=== PATIENT | female | born 1985 | race Caucasian/White ===

== ENCOUNTER 2016-12-11 17:44 | Emergency (ER) | payer OTHER, MEDICAID ==
[~2016-12-11] VITALS: Ht 154.9 cm; Wt 78.0 kg
[~2016-12-11 17:44] MED LIST: ACYCLOVIR 400M400 MG PO; BACTRIM DS 8001 TAB PO; BENZONATATE100 M1 PO; CETIRIZINE HCL10 MG PO; CIPRO 500MG TA500 MG PO; DOXYCYCLINE HY100 M4 PO; HYDROXYZINE PAM50 MG PO; KEFLEX 500MG.500 MG PO; KEFLEX500 M1 PO; NOMEDS XX; ORTHO TRI-CYCLE1 TAB PO; PHENERGAN 25MG.25 M1 PO; PREDNISONE 20MG20 MG PO; PREDNISONE 5MG.5 MG PO; TAMIFLU 75MG CA75 MG PO; TESSALON PERLE100 MG PO; TORADOL10 MG PO; VOLTAREN75 MG PO; ZITHROMAX Z-PA250 M1 PO; ZOFRAN ODT4 MG PO
[2016-12-11] MEDS ORDERED: WELLBUTRIN 150150 MG PO (18:00)
[2016-12-11] MEDS ORDERED: LATUDA40 MG PO (18:01)
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
[2016-12-11] MEDS ORDERED: IMITREX 25MG TA25 MG PO (21:12)
[2016-12-11] MEDS ORDERED: PHENERGAN25 M3 PO (21:12)
[2016-12-11 21:21] VITALS: BP 156/94
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
== END 2016-12-11 21:22 | disposition home or self-care (01) ==
LOC: UTC 17:44 → ER 18:03 → UTC 18:03 → ER 21:22
DX: G43.001 Migraine without aura, not intractable, with status migrainosus (principal); Z72.0 Tobacco use

== ENCOUNTER 2017-03-29 07:56 | Emergency (ER) | payer MEDICAID ==
[~2017-03-29] VITALS: Ht 154.9 cm; Wt 79.4 kg
[~2017-03-29 07:56] MED LIST changes: +IMITREX 25MG TA25 MG PO; +LATUDA40 MG PO; +PHENERGAN25 M3 PO; +WELLBUTRIN 150150 MG PO
[2017-03-29] MEDS ORDERED: VISTARIL25 MG PO (08:05)
--- NOTE | 2017-03-29 08:26 | Emergency Room Report ---
History of Present Illness Time Seen by MD Odom Presenting Problem in Triage Pt arrived:Walked Presenting Problem:PT STATES SEVERE MIGRAINE WITH NAUSEA THAT BEGAN MONDAY NIGHT. DENIES TREATMENT PRIOR TO ARRIVAL. STATES HISTORY OF MIGRAINE. 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 N Clinical Suspician of Infection? N Mental Status: 1 - Regular (Normal Baseline) Sepsis Risk:Low Sepsis Risk Have you (or family members/close friends) recently traveled outside the [place]? N If Yes, where/when: Have you had exposure to infectious disease within the past month? TB? Other? Specify: Comment The patient has a history of migraines and complains of a typical migraine. She says that she has a headache that is all over her whole head and seems to originate in the back part of her head. She has photophobia, blurry vision, and nausea. Symptoms have been present since Monday. I've seen the patient for migraines a couple of times in November. The last time I saw her she was treated with subcutaneous Imitrex and then prescribed Imitrex and Phenergan. She says that the Imitrex and Phenergan helped. She says her family physician, Dr. Saab, is currently trying to get her on Relpax, but is having trouble with her insurance getting approval. ALLERGIES Coded Allergies: No Known Allergies (12/09/16) Home Medications Reported Medications ACYCLOVIR SODIUM (Acyclovir 400MG) 200 MG PO BID #60 Hydroxyzine Pamoate (Vistaril) 25 MG PO PRN PRN ANXIETY History Medical History General CAD? No Angina: No [place]: No Hypertension? No Hyperlipidemia? No CHF? No DVT? No PE? No COPD? No Asthma? No Anemia? No GERD? No Gastric ulcers? No GI Bleed? No Hernia? No Thyroid Problems? No Hypothyroidism? No CVA? No Seizures? No Diabetes? No Renal Insuffiency? No End Stage Renal Disease? No UTI? No Stones? No BPH? No GB Disease: No Nephritic Syndrome? No Asplenia? No Hepatitis? No Sickle Cell Disease? No Arthritis? No Migraines? Yes Cataracts? No Glaucoma? No MRSA? No HIV? No TB? No Anxiety? No Depression? Yes Cancer? No More? 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 Family History Family Hx Diabetes No CAD No Hypertension Yes Hyperlipidemia Yes Cancer No TB No Social History Smoking Hx Smoker: Current Every Day Smoker Tobacco: Yes Type Cigarettes Packs/day 1 1/2 - 2 Packs Alcohol Alcohol: No Review of Systems All Other Systems Reviewed and Negative Eyes see HPI Gastrointestinal nausea Psychiatric/Neurological headache Physical Exam Vital Signs Vital Signs Date Time Temp Pulse Resp B/P Pulse O2 O2 Flow FiO2 Ox Delivery Rate 03/29 800 98.8 70 20 130/76 100 General Appearance normal appearance, WD/WN Eye Exam - bilateral eye normal exam, bilateral eye PERRL, bilateral eye EOMI Comment Fundi normal, no papilledema or hemorrhages. Ear, Nose, Throat hearing grossly normal, normal ENT inspection Neck normal inspection, non-tender, supple, full range of motion Respiratory Status Yes: trachea midline, chest symmetrical, non tender chest. No: respiratory distress. Lung Sounds bilateral: normal breath sounds, lungs clear. 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 No Results/Orders Current Medication Orders Sig/Brendan Start time Last Medication Dose Route Stop Time Status Admin Sumatriptan Succinate 6 MG ONCE ONE 03/29 845 DC 03/29 SC 03/29 Sumatriptan Succinate 0 .STK-MED ONE 03/29 838 DC .ROUTE Progress - 9:45 AM: Per nurse, patient is better and ready to be discharged. Departure Departure Disposition DC Home or Self Care(routine) Clinical Impression Primary Impression: Migraine Qualifiers: Migraine type: without aura Status migrainosus presence: with status migrainosus Intractability: not intractable Qualified Code: G43.001 - Migraine without aura, not intractable, with status migrainosus Condition STABLE Referrals [facility] (Family) Patient Instructions DI for Migraine Additional Instructions Additional instructions for HEADACHE: See your physician as soon as possible for further evaluation. Return immediately if worsening headache, vomiting, problems with vision or speech, fever, numbness or weakness of the extremities, neck pain or stiffness. Prescriptions Current Visit Scripts Sumatriptan Succinate (Imitrex 25MG Tablet) 25 MG PO ONCE #10 TAB take one tablet at onset of migraine. If no relief repeat dose once in 2 hours. PROMETHAZINE HCL (Phenergan 25MG Tab (Geq)) 25 MG PO Q6HP PRN N/V #14 TAB ED Critical Care Critical Care No at 0947
--- NOTE | 2017-03-29 08:26 | Emergency Room Report ---
History of Present Illness Time Seen by MD dOom Presenting Problem in Triage Pt arrived:Walked Presenting Problem:PT STATES SEVERE MIGRAINE WITH NAUSEA THAT BEGAN MONDAY NIGHT. DENIES TREATMENT PRIOR TO ARRIVAL. STATES HISTORY OF MIGRAINE. 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 N Clinical Suspician of Infection? N Mental Status: 1 - Regular (Normal Baseline) Sepsis Risk:Low Sepsis Risk Have you (or family members/close friends) recently traveled outside the [place]? N If Yes, where/when: Have you had exposure to infectious disease within the past month? TB? Other? Specify: Comment The patient has a history of migraines and complains of a typical migraine. She says that she has a headache that is all over her whole head and seems to originate in the back part of her head. She has photophobia, blurry vision, and nausea. Symptoms have been present since Monday. I've seen the patient for migraines a couple of times in November. The last time I saw her she was treated with subcutaneous Imitrex and then prescribed Imitrex and Phenergan. She says that the Imitrex and Phenergan helped. She says her family physician, Dr. Saab, is currently trying to get her on Relpax, but is having trouble with her insurance getting approval. ALLERGIES Coded Allergies: No Known Allergies (12/09/16) Home Medications Reported Medications ACYCLOVIR SODIUM (Acyclovir 400MG) 200 MG PO BID #60 Hydroxyzine Pamoate (Vistaril) 25 MG PO PRN PRN ANXIETY History Medical History General CAD? No Angina: No [place]: No Hypertension? No Hyperlipidemia? No CHF? No DVT? No PE? No COPD? No Asthma? No Anemia? No GERD? No Gastric ulcers? No GI Bleed? No Hernia? No Thyroid Problems? No Hypothyroidism? No CVA? No Seizures? No Diabetes? No Renal Insuffiency? No End Stage Renal Disease? No UTI? No Stones? No BPH? No GB Disease: No Nephritic Syndrome? No Asplenia? No Hepatitis? No Sickle Cell Disease? No Arthritis? No Migraines? Yes Cataracts? No Glaucoma? No MRSA? No HIV? No TB? No Anxiety? No Depression? Yes Cancer? No More? 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 Family History Family Hx Diabetes No CAD No Hypertension Yes Hyperlipidemia Yes Cancer No TB No Social History Smoking Hx Smoker: Current Every Day Smoker Tobacco: Yes Type Cigarettes Packs/day 1 1/2 - 2 Packs Alcohol Alcohol: No Review of Systems All Other Systems Reviewed and Negative Eyes see HPI Gastrointestinal nausea Psychiatric/Neurological headache Physical Exam Vital Signs Vital Signs Date Time Temp Pulse Resp B/P Pulse O2 O2 Flow FiO2 Ox Delivery Rate 03/29 800 98.8 70 20 130/76 100 General Appearance normal appearance, WD/WN Eye Exam - bilateral eye normal exam, bilateral eye PERRL, bilateral eye EOMI Comment Fundi normal, no papilledema or hemorrhages. Ear, Nose, Throat hearing grossly normal, normal ENT inspection Neck normal inspection, non-tender, supple, full range of motion Respiratory Status Yes: trachea midline, chest symmetrical, non tender chest. No: respiratory distress. Lung Sounds bilateral: normal breath sounds, lungs clear. 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 No Results/Orders Current Medication Orders Sig/Brendan Start time Last Medication Dose Route Stop Time Status Admin Sumatriptan Succinate 6 MG ONCE ONE 03/29 845 DC 03/29 SC 03/29 Sumatriptan Succinate 0 .STK-MED ONE 03/29 838 DC .ROUTE Progress - 9:45 AM: Per nurse, patient is better and ready to be discharged. Departure Departure Disposition DC Home or Self Care(routine) Clinical Impression Primary Impression: Migraine Qualifiers: Migraine type: without aura Status migrainosus presence: with status migrainosus Intractability: not intractable Qualified Code: G43.001 - Migraine without aura, not intractable, with status migrainosus Condition STABLE Referrals [facility] (Family) Patient Instructions DI for Migraine Additional Instructions Additional instructions for HEADACHE: See your physician as soon as possible for further evaluation. Return immediately if worsening headache, vomiting, problems with vision or speech, fever, numbness or weakness of the extremities, neck pain or stiffness. Prescriptions Current Visit Scripts Sumatriptan Succinate (Imitrex 25MG Tablet) 25 MG PO ONCE #10 TAB take one tablet at onset of migraine. If no relief repeat dose once in 2 hours. PROMETHAZINE HCL (Phenergan 25MG Tab (Geq)) 25 MG PO Q6HP PRN N/V #14 TAB ED Critical Care Critical Care No at 0947
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
--- OUTSIDE RECORDS SUMMARY | 2017-03-29 08:30 | External Medical Summary Rpt ---
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 Name Role Phone A Mia FERRER MD [...] Unavailable Unavailable PHILLIP MARESEY Unavailable Unavailable BARBIE [facility] Unavailable Unavailable [facility] TOSHA BEAN MD, Unavailable Unavailable TOSHA BEAN MD HARPEL ZULEMA, HARPEL Unavailable Unavailable ZULEMA HARPEL ZULEMA, HARPEL Unavailable Unavailable ZULEMA [facility] Un[facility] Unavailable [facility], [facility], Unavailable Unavailable [facility] ROD AUD, ROD AUD Unavailable Unavailable [facility], [facility] KILPELA JEA, KILPELA Unavailable Unavailable BHAVESH Schwab MD, Unavailable Unavailable Cherie Strange MD, Unavailable Unavailable Lizet SAMUEL, Unavailable Unavailable CAMRYN SAMUEL, Unavailable Unavailable CAMRYN SAMUEL URBANO, URBANO Unavailable Unavailable URBANO TRUDY, URBANO TRUDY Unavailable Unavailable URBANO TRUDY, URBANO TRUDY Unavailable Unavailable [facility], [facility], [facility] Unavailable Unavailable [id number] [address] [id number], [facility] [id number] [address] [id number] ARCHIE MARQUES, ARCHIE Unavailable Unavailable JERALD Parker Unavailable Unavailable Lex REDDY MD, III, MD, WRIGHT Unavailable Unavailable Purpose Continuity of Care Document - 07-13-2013 through 2016 Problems Code Diagnosis DOS Provider Status [id number] MIGRAINE 02-13-2017 A Mia FERRER W/O AURA PSC NOT INTRACT W/STAT MIGRAINOSUS R300 DYSURIA 02-13-2017 A Mia FERRER MD PSC [id number] CONCUSSION 02-13-2017 A Mia FERRER WITHOUT LOC PSC INITIAL ENCOUNTER N390 URINARY 09-14-2016 A Mia FERRER TRACT PSC INFECTION SITE NOT SPECIFIED [id number] SPRAIN UNS 06-01-2016 [facility] LIGAMENT LEFT ANKLE INITIAL ENCOUNTER [id number] MIGRAINE 02-21-2016 [facility] UNS NOT PHYSICIANS INTRACT W/O GROUP STATUS MIGRAINOSUS J40 BRONCHITIS 02-21-2016 [facility] NOT PHYSICIANS SPECIFIED GROUP ACUTE OR CHRONIC J329 CHRONIC 02-05-2016 [facility] SINUSITIS PHYSICIANS UNSPECIFIED GROUP J0190 ACUTE 01-07-2016 [facility] SINUSITIS PHYSICIANS UNSPECIFIED GROUP R05 COUGH 01-07-2016 [facility] B86 SCABIES 11-17-2015 [facility] R51 HEADACHE 10-29-2015 [facility] J0191 ACUTE 09-24-2015 [facility] RECURRENT PHYSICIANS SINUSITIS GROUP UNSPECIFIED J209 ACUTE 09-24-2015 [facility] BRONCHITIS PHYSICIANS UNSPECIFIED GROUP J42 UNSPECIFIED 09-04-2015 [facility] R5383 OTHER 09-04-2015 [facility] 3671 MYOPIA 04-28-2015 [facility] 7840 HEADACHE 04-27-2015 [facility] 490 BRONCHITIS 03-10-2015 [facility] NOT PHYSICIANS, SPECIFIED PLLC ACUTE OR CHRONIC 88963 CONTACT 03-10-2015 [facility] DERMATITIS& PHYSICIANS, OTHER PLLC ECZEMA DUE TO SUNBURN 4779 ALLERGIC 01-15-2015 [facility] RHINITIS CAUSE UNSPECIFIED 1121 CANDIDIASIS 01-09-2015 TOSHA Melendez OF [facility] 7231 CERVICALGIA 01-09-2015 [facility] 7242 LUMBAGO 01-09-2015 [facility] 7245 UNSPECIFIED 01-09-2015 [facility] 52771 OTHER 01-09-2015 [facility] 2724 OTHER AND 12-12-2014 [facility] HYPERLIPIDE LYNETTE 4011 ESSENTIAL 12-12-2014 [facility], BENIGN INC 27932 INSOMNIA 12-12-2014 [facility] 21018 OBESITY, 12-02-2014 A Mia FERRER UNSPECIFIED [facility] 7831 ABNORMAL 12-02-2014 A Mia FERRER WEIGHT GAIN [facility] V8536 BODY MASS 12-02-2014 A Mia FERRER INDEX [facility] 36.0-36.9 ADULT 3530 BRACHIAL 11-21-2014 [facility] LESIONS [facility] 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 7246 DISORDERS 11-21-2014 [facility] [place] 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 [facility] 7391 NONALLOPATH 11-21-2014 [facility] IC LESION FAMILY OF CERVICAL CHIROPRACT REGION NEC 7392 NONALLOPATH 11-21-2014 [facility] [place]ESION FAMILY OF THORACIC CHIROPRACT REGION NEC 7393 NONALLOPATH 11-21-2014 [facility] [place] IC [facility]ESION FAMILY OF LUMBAR CHIROPRACT REGION NEC 7394 NONALLOPATH 11-21-2014 [facility] [place] IC LESION FAMILY OF SACRAL CHIROPRACT REGION NEC 4660 ACUTE 11-06-2014 A Mia FERRER BRONCHITIS [facility] V1582 PERS HX 11-06-2014 A Mia FERRER TOBACCO USE [facility] PRESENTING [facility] 6116 GALACTORRHE 09-30-2014 TOSHA BEAN MD ASSOCIATED WITH CHILDBIRTH V259 UNSPECIFIED 09-30-2014 TOSHA BEAN MD CONTRACEPTI VE MANAGEMENT V7231 ROUTINE 09-30-2014 TOSHA Melendez GYNECOLOGIC GEN[facility] MOSQUERA AL EXAMINATION V154 PERS HX 06-25-2014 [facility] TRAUMA PRS [facility] 0549 HERPES 06-24-2014 A Mia FERRER SIMPLEX PSC WITHOUT MENTION OF COMPLICATIO N 6262 EXCESSIVE 06-24-2014 A Mia FERRER OR ARPIT MOSQUERA PSC MENSTRUATIO N V2502 GENERAL 02-20-2014 HARPEL ZULEMA CNSL INITIATION OTH CONTRACEPT MEASURES V2509 OTH GENERAL 02-20-2014 [facility] ZULEMA CNSL&ADVICE CONTRACEPT MANAGEMENT V2542 SURVEILLANC 02-11-2014 HARPEL ZULEMA E PREV PRSC INTRAUTERN CNTRACPT DEVC 77901 UNSPECIFIED 01-30-2014 URBANO TRUDY ACUTE CONJUNCTIVI TIS 4659 ACUTE URIS 01-30-2014 UBRANO TRUDY OF UNSPECIFIED SITE 48341 FEVER 11-22-2013 FIELD AMB UNSPECIFIED 305.00 305.00 10-09-2013 [facility] ALCOHOL [facility] ABUSE-[facility] C 915.0 915.0 10-09-2013 [facility] ABRASION [facility] V720 EXAMINATION 10-08-2013 [facility] OF EYES GRE AND VISION 466.0 466.0 ACUTE 08-15-2013 Bridget[facility] BRONCHITIS [facility] 493.90 493.90 08-15-2013 Bridget[facility] ASTHMA, [facility] 883.0 883.0 OPEN 07-13-2013 Bridgett WOUND OF [facility] E849.0 E849.0 07-13-2013 [facility] ACCIDENT IN [facility] E920.3 E920.3 07-13-2013 [facility] KNIFE/SWORD [facility] G43.909 MIGRAINE, UNSP, NOT INTRACTABLE , WITHOUT [...] 10 #3 MG 93 8 TA B RI 00 05 06 60 30 00 RI [...] 05 06 60 30 00 RI Ac RI 50 -1 -0 .0 00 TE ti [...] 04 05 60 30 00 RI Ac RI 78 -1 -1 .0 00 TE ti [...] 04 05 60 30 00 RI Ac RI 46 -0 -0 .0 00 TE ti [...] #3 MG 93 8 TA BL ET RI 00 03 04 10 2 00 RI Ac OM 59 -2 -1 .0 00 TE ti ET 15 0- 4- 00 01 ve BANIS 30 20 20 17 AI ZI 70 [...] 10 #3 MG 93 8 TA B RI 00 03 04 60 30 00 RI Ac OP 37 -2 -1 .0 00 TE ti RA 80 1- 4- 00 01 ve NO 18 20 20 17 AI LO 40 17 17 63 D L 1 66 PH 40 AR MA MG CY TA #3 BL 93 ET 8 BU 60 03 04 60 30 00 RI Ac RI 50 -1 -0 .0 00 TE ti [...] 02 03 60 30 00 RI Ac RI 46 -2 -2 .0 00 TE ti [...] 01 02 30 30 00 RI Ac RI 37 -2 -1 .0 00 TE ti OP 00 0- 7- 00 01 ve IO 10 20 20 14 AI N 10 17 17 78 D HC 3 57 PH L AR XL MA CY 15 0 #3 MG 93 8 TA BL ET NA 68 01 02 60 30 00 RI Ac RI 46 -2 -1 .0 00 TE ti [...] 12 01 60 30 00 RI Ac RI 46 -0 -0 .0 00 TE ti [...] 12 01 30 30 00 RI Ac RI 37 -0 -0 .0 00 TE ti OP 00 9- 9- 00 01 ve IO 10 20 20 14 AI N 10 16 17 78 D HC 3 57 PH L AR XL MA CY 15 0 #3 MG 93 8 TA BL ET NA 68 08 10 5 60 30 RI 11 BR Ac RI 46 -2 -2 0. TE 46 OD ti OX 20 5- 6- 00 00 SK ve EN 19 20 20 0 AI 8 Y 00 16 16 D KE 50 1 PH NN 0 AR ET MG MA H CY M TA BL 03 ET 93 8 # 03 93 BU 10 09 10 5 30 30 RI 11 BR Ac RI 37 -0 -2 0. TE 47 OD [...] M. complet OR 013 RHOADES ed 16:30 LINEN ROOM HOUSEPERSON ETHNICI WHITE, complet TY 013 NON-HIS ed 16:30 PANIC KIT complet EXPIRAT 013 014 ed ION 16:30 DATE SYMPTOM NO complet S ed 16:30 REASON REVISIT complet FOR 013 /ANNUAL ed REQUEST 16:30 FAMILY RENE Hall VISIT SPECIME FEMALE complet N 013 ENDOCER ed SOURCE 16:30 VICAL PREGNAN NO complet T 013 ed 16:30 CHART M. complet NUMBER 013 RHOADES ed 16:30 LINEN ROOM HOUSEPERSON Chlamyd Pending complet ia ed trachom 16:30 atis rRNA [Presen ce] in Unspeci fied specime n by Probe & target amplifi cation method Neisser Pending complet ed gonorrh 16:30 oeae rRNA [Presen ce] in Unspeci fied specime n by Probe & target amplifi cation method Procedures Procedure DOS Code Location Performer Comment URINLS 07470 A C URBANO DIP 7 CARISSA MOSQUERA STICK/TAB PSC LET REAGNT NON-AUTO MICRSCPY URINLS 46368 A C FERRER DIP 6 CARISSA MOSQUERA STICK/TAB PSC LET REAGNT NON-AUTO MICRSCPY INJECTION J1885 [facility] LEIA 6 PHYSICIAN BONDS KETOROLAC S GROUP TROMETHAM INE PER 15 MG THERAPEUT 86834 [facility] LEIA IC 6 PHYSICIAN BONDS PROPHYLAC S GROUP TIC/DX INJECTION SUBQ/IM THERAPEUT 20099 [facility] JOSE C IC 6 PHYSICIAN BARBIE PROPHYLAC S GROUP TIC/DX INJECTION SUBQ/IM INJECTION J1885 [facility] JOSE C 6 PHYSICIAN BARBIE KETOROLAC S GROUP TROMETHAM INE PER 15 MG INJECTION J1040 [facility] JOSE C 6 PHYSICIAN BARBIE METHYLPRE S GROUP DNISOLONE ACETATE 80 MG INJECTION J1040 [facility] TER 6 PHYSICIAN METHYLPRE S GROUP DNISOLONE ACETATE 80 MG THERAPEUT 61055 [facility] R[facility] TER IC 6 PHYSICIAN PROPHYLAC S GROUP TIC/DX INJECTION SUBQ/IM INJECTION J1885 [facility] 6 PHYSICIAN KETOROLAC S GROUP TROMETHAM INE PER 15 MG THERAPEUT 43310 [facility] RIVAS TER IC 6 PHYSICIAN PROPHYLAC S GROUP TIC/DX INJECTION SUBQ/IM THERAPEUT 57320 [facility] IC 5 PHYSICIAN PHYSICIAN PROPHYLAC S GROUP S GROUP TIC/DX INJECTION SUBQ/IM INJECTION J1040 [facility] TER 5 PHYSICIAN METHYLPRE S GROUP DNISOLONE ACETATE 80 MG IRON 50391 [facility] BINDING [facility] CAPACITY INC INC BLOOD 68278 [facility] COUNT [facility] COMPLETE INC INC AUTO&AUTO DIFRNTL WBC COLLECTIO 32595 [facility] N VENOUS 5 [facility] [place] [address] [facility] FOLIC [facility] [place] [address] [facility] IRON [facility] INC INC CYANOCOBA 26965 [facility] JADON 5 [facility] VITAMIN INC INC B-[address] [facility] 5 GRE GRE XM&EVAL COMPRHNSV ESTAB PT 1/> RADEX 43766 [facility] 5 MEDICAL YULISA LUMBOSACR IMAGING AL 2/3 ASS VIEWS RADEX 72949 [facility] 5 MEDICAL YULISA CERVICAL IMAGING 2 OR 3 ASS VIEWS SMR PRIM 18143 TOSHA BEAN SRC WET 5 GENEVA CINTRON NFCT AGT COLLECTIO 44911 [facility] N VENOUS 5 [facility] BLOOD INC INC VENIPUNCT URE BLOOD 29089 [facility] COUNT 5 [facility] COMPLETE INC INC AUTO&AUTO DIFRNTL WBC BLOOD 10168 [facility] COUNT 5 [facility] COMPLETE INC INC AUTO&AUTO DIFRNTL WBC HEMOGLOBI 14071 [facility] N 5 [facility] GLYCOSYLA INC INC MAXX A1C COLLECTIO 44145 [facility] N VENOUS 5 [facility] BLOOD INC INC VENIPUNCT URE LIPID 84355 [facility] PANEL 5 [facility] INC INC HEPATIC 28340 [facility] FUNCTION 5 [facility] PANEL INC INC BASIC 80594 [facility] METABOLIC 5 [facility] [place] [address] [facility] THYROID 5 [facility] STIMULATI INC INC NG HORMONE TSH APPL 01580 MAURIZIO ARCHIE MODALITY 5 N FAMILY JERALD 1/> AREAS CHIROPRAC ELEC T STIMJ UNATTENDE D APPL 41099 MAURIZIO ARCHIE MODALITY 5 N FAMILY JERALD 1/> AREAS CHIROPRAC TRACTION T MECHANICA L THERAPEUT 12006 MAURIZIO ARCHIE IC PX 1/> 5 N FAMILY JERALD AREAS CHIROPRAC EACH 15 T MIN EXERCISES CHIROPRAC 64397 MAURIZIO ALMANZA TIC 5 N FAMILY JERALD MANIPULAT CHIROPRAC ROOP[place] TX T SPINAL 3-4 REGIONS CHIROPRAC 40623 MAURIZIO ALMANZA TIC 5 N FAMILY JERALD MANIPULAT CHIROPRAC ROOPA TX T SPINAL 3-4 REGIONS THERAPEUT 75761 MAURIZIO ALMANZA IC PX 1/> 5 N FAMILY JERALD AREAS CHIROPRAC EACH 15 T MIN EXERCISES APPL 38285 YANEW ARCHIE MODALITY 5 N FAMILY JERALD 1/> AREAS CHIROPRAC ELEC T STIMJ UNATTENDE D APPL 32541 VINODTOW ARCHIE MODALITY 5 N FAMILY JERALD 1/> AREAS CHIROPRAC TRACTION T MECHANICA L RADEX 01014 VINODTOW ARCHIE SPINE 5 N FAMILY JERALD CERVICAL CHIROPRAC 2 OR 3 T VIEWS RADEX 72563 YANEW ARCHIE SPINE 5 N FAMILY JERALD LUMBOSACR CHIROPRAC AL 2/3 T VIEWS IADNA 03487 TOSHA BEAN NEISSERIA 5 GENEVA POOLE GONORRHOE AE DIRECT PROBE TQ CULTURE 15016 TOSHA BEAN CHLAMYDIA 5 GENEVA MOSQUERA ZULEMA ANY SOURCE URINE 24116 TOSHA GIVENS R 5 GENEVA BEAN MD TEST VISUAL COLOR CMPRSN METHS URINLS 42336 TOSHA R HARPEL DIP 5 GENEVA MOSQUERA ZULEMA STICK/TAB LET REAGNT NON-AUTO MICRSCPY URINE 65884 A Mia CLEMENT TRUDY 4 CARISSA MOSQUERA TEST PSC VISUAL COLOR CMPRSN METHS URINE 77779 [facility] HARPEL 4 ZULEMA ZULEMA TEST VISUAL COLOR CMPRSN METHS ETONOGEST J7307 [facility] HARPEL REL 4 ZULEMA ZULEMA CNTRACPT IMPL SYS INCL IMPL & SPL INSJ 84183 [facility] HARPEL NON-BIODE 4 ZULEMA ZULEMA GRADABLE DRUG DELIVERY IMPLANT REMOVAL 69428 [facility] HARPEL INTRAUTER 4 ZULEMA ZULEMA INE DEVICE IUD IAADIADOO 09448 FIELD AMB FIELD AMB [address] [facility] 4 GRE GRE XM&EVAL COMPRHNSV ESTAB PT 1/> DETERMINA 09007 [facility] TION 4 GRE GRE REFRACTIV E STATE Encounters Encounter Start End Date Code Location Performer Type Date OFFICE 52315 A Mia CLEMENT OUTPATIEN 7 7 CARISSA MOSQUERA T VISIT PSC 25 MINUTES OFFICE 90307 Karma FERRER OUTPATIEN 6 6 CARISSA MOSQUERA T VISIT PSC 15 MINUTES OFFICE 99218 [facility] OUTPATIEN 6 6 [place] T VISIT 15 MINUTES OFFICE 44019 [facility] OUTPATIEN 6 6 [place] T VISIT 15 MINUTES OFFICE 82058 [facility] LEIA OUTPATIEN 6 6 PHYSICIAN BONDS T VISIT S GROUP 15 MINUTES OFFICE 67932 [facility] JOSE C OUTPATIEN 6 6 PHYSICIAN BARBIE T VISIT S GROUP 15 MINUTES OFFICE 05276 [facility] EV[address] TER OUTPATIEN 6 6 PHYSICIAN T VISIT S GROUP 15 MINUTES OFFICE 73253 [facility] OUTPATIEN 6 6 [place] T VISIT 15 MINUTES OFFICE 29758 [facility] [address] TER OUTPATIEN 6 6 PHYSICIAN T VISIT S GROUP 15 MINUTES [facility] OUTPATIEN INC T OFFICE [address] [facility] [address] OUTPATIEN 5 5 [facility] T VISIT HOSPITAL 15 MINUTES OFFICE 39062 [facility] OUTPATIEN 5 5 [facility] T VISIT HOSPITAL 15 MINUTES OFFICE 38736 [facility] OUTPATIEN 5 5 [place] T VISIT 15 MINUTES EMERGENCY 66042 [facility] STRANGE 5 5 PHYSICIAN BARBIE DEPARTMEN S, PLLC T VISIT HIGH/URGE NT SEVERITY OFFICE 75080 [facility] OUTPATIEN 5 5 [place] T VISIT 15 MINUTES [facility] OUTPATIEN INC T OFFICE 90864 TOSHA BEAN OUTPATIEN 5 5 GENEVA POOLE T VISIT 15 MINUTES [facility] - [facility] 5 [facility] OUTPATIEN INC T OFFICE 65835 A Mia YATES OUTPATIEN 5 5 CARISSA MOSQUERA T VISIT PSC 15 MINUTES OFFICE 30021 MAURIZIO ALMANZA OUTPATIEN 5 5 N FAMILY JERALD T NEW 20 CHIROPRAC MINUTES T OFFICE 53310 A Mia YATES OUTPATIEN 5 5 CARISSA MOSQUERA T VISIT PSC 15 MINUTES OFFICE 49995 A Mia LEWIS OUTPATIEN 5 5 CARISSA OSPINA T VISIT PSC 15 MINUTES [facility] 47193 TOSHA BEAN PREVENTIV 5 5 GENEVA POOLE E MED EST PATIENT 18-39 YRS OFFICE 92125 A Mia YATES OUTPATIEN 4 4 CARISSA MOSQUERA T VISIT PSC 15 MINUTES OFFICE 66174 A Mia YATES OUTPATIEN 4 4 CARISSA MOSQUERA T VISIT PSC 15 MINUTES OFFICE 63713 [facility] HARPEL OUTPATIEN 4 4 ZULEMA ZULEMA T VISIT 10 MINUTES OFFICE 32797 [facility] HARPEL OUTPATIEN 4 4 ZULEMA ZULEMA T VISIT 25 MINUTES OFFICE 61327 URBANOBECK YATES URBANO TRUDY OUTPATIEN 4 4 T VISIT 15 MINUTES OFFICE 59987 FIELD AMB FIELD AMB OUTPATIEN 4 4 T VISIT 15 MINUTES OFFICE 24793 URBANOBECK KOENIGES TRUDY OUTPATIEN 4 4 T VISIT 10 MINUTES Emergency PREETI Schwab MD (ER) 4 17:31 4 17:47 [facility] Emergency PREETI Strange MD (ER) 3 03:28 3 05:12 [facility] Emergency PREETI Parker (ER) 3 15:59 3 18:37 [facility] [place]
--- OUTSIDE RECORDS SUMMARY | 2017-03-29 08:33 | External Medical Summary Rpt ---
Author Author , Organization [employer] Address Unknown Phone Unavailable Care Team Providers Care Proposal Director Name Role Phone A Mia FERRER MD PSC, A Unavailable Unavailable Mia FERRER MD PSC EVELYN TER, EVELYN TER Unavailable Unavailable [facility] Unavailable Unavailable [facility] ROBERTSON Unavailable Unavailable [place] LEIA BONDS, Unavailable Unavailable LEIA BONDS JOSE C BARBIE, JOSE C Unavailable Unavailable [facility], Unavailable [facility]available [facility], Unavailable [facility]available [facility] AM[facility], FIELD AMB Unavailable Unavailable FI[facility] AM[facility], FIELD AM[facility] Unavailable Unavailable ALIS BARBIE, ALIS Unavailable Unavailable BARBI[facility] Unavailable Unavailable [facility] TOSHA BEAN MD, Unavailable Unavailable TOSHA BEAN MD HARPEL ZULEMA, HARPEL Unavailable Unavailable ZULEMA HARPEL ZULEMA, HARPEL Unavailable Unavailable ZULEMA [facility] Un[facility] Unavailable [facility], [facility], Unavailable Unavailable [facility] ROD AUD, ROD AUD Unavailable Unavailable [facility] Unavailable Unavailable [facility], [facility] KILPELA JEA, KILPELA Unavailable Unavailable JEA CAMRYN GRE, Unavailable Unavailable CAMRYN GRE CAMRYN GRE, Unavailable Unavailable CAMRYN GRE URBANO, URBANO Unavailable Unavailable URBANO TRUDY, URBANO TRUDY Unavailable Unavailable URBANO TRUDY, URBANO TRUDY Unavailable Unavailable [facility], [facility], [facility] Unavailable Unavailable [id number] [address] [id number], [facility] [id number] # [id number] ARCHIE WILL Unavailable Unavailable CARISSA PAZ Unavailable Unavailable Purpose Continuity of Care Document - 10-08-2013 through 2016 Problems Code Diagnosis DOS Provider Status [id number] MIGRAINE 02-13-2017 Karma FERRER W/O AURKarma MOSQUERA PSC NOT INTRACT W/STAT MIGRAINOSUS R300 DYSURIA 02-13-2017 Karma FERRER MD PSC [id number] CONCUSSION 02-13-2017 Karma FERRER WITHOUT LOC PSC INITIAL ENCOUNTER N390 URINARY 09-14-2016 Karma LIANG MD [facility] INFECTION SITE NOT SPECIFIED [id number] SPRAIN UNS 06-01-2016 [facility] FIGUEROA LIGAMENT LEFT ANKLE INITIAL ENCOUNTER [id number] MIGRAINE 02-21-2016 [facility] UNS NOT PHYSICIANS INTRACT W/O GROUP STATUS MIGRAINOSUS J40 BRONCHITIS 02-21-2016 [facility] NOT PHYSICIANS SPECIFIED GROUP ACUTE OR CHRONIC J329 CHRONIC 02-05-2016 [facility] SINUSITIS PHYSICIANS UNSPECIFIED GROUP J0190 ACUTE 01-07-2016 [facility] SINUSITIS PHYSICIANS UNSPECIFIED GROUP R05 COUGH 01-07-2016 [facility] B86 SCABIES 11-17-2015 [facility] R51 HEADACHE 10-29-2015 [facility] J0191 ACUTE 09-24-2015 [facility] RECURRENT PHYSICIANS SINUSITIS GROUP UNSPECIFIED J209 ACUTE 09-24-2015 [facility] BRONCHITIS PHYSICIANS UNSPECIFIED GROUP J42 UNSPECIFIED 09-04-2015 [facility] R5383 OTHER 09-04-2015 [facility] 3671 MYOPIA 04-28-2015 CAMRYN SAMUEL 7840 HEADACHE 04-27-2015 [facility] FIGUER[facility] 490 BRONCHITIS 03-10-2015 [facility] ACUTE OR CHRONIC 40379 CONTACT 03-10-2015 [facility] OTHER [facility] ECZEMA DUE TO SUNBURN 4779 ALLERGIC 01-15-2015 [facility] RHINITIS CAUSE UNSPECIFIED 1121 CANDIDIASIS 01-09-2015 TOSHA Melendez OF [facility] 7231 CERVICALGIA 01-09-2015 [facility] 7242 LUMBAGO 01-09-2015 [facility] 7245 UNSPECIFIED 01-09-2015 [facility] 31677 OTHER 01-09-2015 [facility] FAT[facility] 2724 OTHER AND 12-12-2014 [facility] HYPERLIPIDE LYNETTE 4011 ESSENTIAL 12-12-2014 [facility], BENIGN INC 17336 INSOMNIA 12-12-2014 [facility] 55880 OBESITY, 12-02-2014 A Mia SANABRIAIFIED PSC 7831 ABNORMAL 12-02-2014 A Mia FERRER WEIGHT GAIN PSC V8536 BODY MASS 12-02-2014 A Mia FERRER INDEX PSC 36.0-36.9 ADULT 3530 BRACHIAL 11-21-2014 [facility] 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 7246 DISORDERS 11-21-2014 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 7391 NONALLOPATH 11-21-2014 [facility] IC LESION FAMILY OF CERVICAL CHIROPRACT REGION NEC 7392 NONALLOPATH 11-21-2014 [facility]ES[facility] FAMILY OF THORACIC CHIROPRACT REGION NEC 7393 NONALLOPATH 11-21-2014 [facility] [facility]ILY OF LUMBAR CHIROPRACT REGION NEC 7394 NONALLOPATH 11-21-2014 [facility]ES[facility] FAMILY OF SACRAL CHIROPRACT REGION NEC 4660 ACUTE 11-06-2014 A Mia FERRER BRONCHITIS PSC V1582 PERS HX 11-06-2014 A Mia FERRER TOBACCO USE PSC [facility] 6116 GALACTORRHE 09-30-2014 TOSHA [...] CNSL&ADVICE CONTRACEPT MANAGEMENT V2542 SURVEILLANC 02-11-2014 HARPEL ZULMEA E PREV PRSC INTRAUTERN CNTRACPT DEVC 32144 UNSPECIFIED 01-30-2014 URBANO TRUDY ACUTE CONJUNCTIVI TIS 4659 ACUTE URIS 01-30-2014 URBANO TRUDY OF UNSPECIFIED SITE 80958 FEVER 11-22-2013 FIELD AMB UNSPECIFIED V720 EXAMINATION 10-08-2013 [facility] OF [facility] Medications Na ND Rx Da Fi Fi Am Da Di Ph RX Ph St me C No te ll ll ou ys ag ar # ys at rm s nt no ma ic us Or Da si cy ia de te s n re d AM 00 05 06 30 30 00 RI Ac IT 78 -2 -1 .0 00 TE ti RI 11 2- 6- 00 01 ve PT 48 20 20 18 AI YL 60 17 17 48 D IN 1 51 PH E AR HC MA L CY 10 #3 MG 93 8 TA B NC 00 05 06 60 30 00 RI [...] #3 CR 93 8 10 0 MG VR 61 05 06 30 30 00 RI Ac AY 87 -1 -1 .0 00 TE ti LA 40 8- 6- 00 01 ve R 11 20 20 18 AI 1. 53 17 17 40 D 5 0 50 PH MG AR MA CA CY PS UL #3 E 93 8 HY 00 05 06 [address] 18 -1 -0 .0 00 TE ti OX 50 5- 9- 00 01 ve YZ 61 20 20 18 AI IN 50 17 17 40 D E 1 48 PH PA AR M MA 50 CY MG #3 93 CA 8 P BU 60 05 06 60 30 00 RI Ac NC 50 -1 -0 .0 00 TE ti [...] CY MG #3 93 CA 8 P LA 65 04 05 46 30 00 RI Ac MO 86 -1 -1 .0 00 TE ti TR 20 7- 2- 00 01 ve IG 22 20 20 18 AI IN 70 17 17 02 D E 1 33 PH 25 AR MA MG CY TA #3 BL 93 ET 8 BU 00 04 05 60 30 00 RI Ac NC 78 -1 -1 .0 00 TE ti OP 11 7- 2- 00 01 ve IO 06 20 20 18 AI N 40 17 17 02 D HC 1 34 PH L AR 10 MA 0 CY MG #3 TA 93 BL 8 ET IB 67 04 05 30 7 00 RI Ac UP 87 -0 -0 .0 00 TE ti RO 70 8- 5- 00 01 ve FE 32 20 20 17 AI N 10 17 17 90 D 80 5 37 PH 0 AR MG MA CY TA BL #3 ET 93 8 NA 68 04 05 60 30 00 RI Ac NC 46 -0 -0 .0 00 TE ti OX 20 7- 5- 00 01 ve EN 19 20 20 14 AI 00 17 17 60 D 50 1 08 PH 0 AR MG MA CY TA BL #3 ET 93 8 HEAD 55 03 04 9. 5 00 RI Ac MA 11 -2 -1 00 00 TE ti TR 10 0- 4- 0 01 ve IP 29 20 20 17 AI TA 10 17 17 59 D N 9 23 PH HEAD AR CC MA CY 25 #3 MG 93 8 TA BL ET NC 00 03 04 10 2 00 RI Ac OM 59 -2 -1 .0 00 TE ti ET 15 0- 4- 00 01 ve BAINS 30 20 20 17 AI ZI 70 17 17 59 D NE 1 24 PH AR 25 MA CY MG #3 TA 93 BL 8 ET HY 00 03 04 [address] 18 -1 -1 .0 00 TE ti OX 50 5- 4- 00 01 ve YZ 61 20 20 17 AI IN 50 17 17 55 D E 1 97 PH PA AR M MA 50 CY MG #3 93 CA 8 P AM 00 03 04 30 30 00 RI Ac IT 78 -2 -1 .0 00 TE ti RI 11 1- 4- 00 01 ve PT 48 20 20 17 AI YL 60 17 17 63 D IN 1 64 PH E AR HC MA L CY 10 #3 MG 93 8 TA B NC 00 03 04 60 30 00 RI Ac OP 37 -2 -1 .0 00 TE ti RA 80 1- 4- 00 01 ve NO 18 20 20 17 AI LO 40 17 17 63 D L 1 66 PH 40 AR MA MG CY TA #3 BL 93 ET 8 KE 00 03 04 12 3 [...] CA #3 PS 93 UL 8 E BU 60 03 04 60 30 00 RI Ac NC 50 -1 -0 .0 00 TE ti OP 50 5- 7- 00 01 ve IO 15 20 20 17 AI N 80 17 17 53 D HC 1 95 PH L AR 75 MA CY MG #3 TA 93 BL 8 ET NA 68 02 03 60 30 00 RI Ac NC 46 -2 -2 .0 00 TE ti OX 20 3- 4- 00 01 ve EN 19 20 20 14 AI 00 17 17 60 D 50 1 08 PH 0 AR MG MA CY TA BL #3 ET 93 8 IB 67 02 03 30 7 00 [...] #3 93 CA 8 PS UL E IB 67 01 02 30 7 00 RI Ac UP 87 -2 -1 .0 00 TE ti RO 70 1- 7- 00 01 ve FE 32 20 20 16 AI N 10 17 17 78 D 80 5 32 PH 0 AR MG MA CY TA BL #3 ET 93 8 BU 10 01 02 30 30 00 RI Ac NC 37 -2 -1 .0 00 TE ti OP 00 0- 7- 00 01 ve IO 10 20 20 14 AI N 10 17 17 78 D HC 3 57 PH L AR XL MA CY 15 0 #3 MG 93 8 TA BL ET NA 68 01 02 60 30 00 RI Ac NC 46 -2 -1 .0 00 TE ti [...] MG #3 TA 93 BL 8 ET HEAD 53 12 01 20 10 00 RI Ac LF 48 -2 -1 .0 00 TE ti AM 90 1- 3- 00 01 ve ET 14 20 20 16 AI HO 60 16 17 35 D XA 1 30 PH ZO AR LE MA -T CY MP #3 DS 93 8 TA BL ET IB 67 12 01 30 7 00 RI Ac UP 87 -2 -1 .0 00 TE ti RO 70 1- 3- 00 01 ve FE 32 20 20 16 AI N 10 16 17 35 D 80 5 31 PH 0 AR MG MA CY TA BL #3 ET 93 8 NA 68 12 01 60 30 00 RI Ac NC 46 -0 -0 .0 00 TE ti [...] 12 01 30 30 00 RI Ac NC 37 -0 -0 .0 00 TE ti OP 00 9- 9- 00 01 ve IO 10 20 20 14 AI N 10 16 17 78 D HC 3 57 PH L AR XL MA CY 15 0 #3 MG 93 8 TA BL ET NA 68 08 10 5 60 30 RI 11 BR Ac NC 46 -2 -2 0. TE 46 OD ti OX 20 5- 6- 00 00 SK ve EN 19 20 20 0 AI 8 Y 00 16 16 D KE 50 1 PH NN 0 AR ET MG MA H CY M TA BL 03 ET 93 8 # 03 93 BU 10 09 10 5 30 30 RI 11 BR Ac NC 37 -0 -2 0. TE 47 OD ti OP 00 7 6 85 SK ve IO 10 20 20 0 AI 7 Y N 10 16 16 D KE HC 3 PH NN L AR ET XL MA H CY M 15 0 03 MG 93 8 TA # BL 03 ET 93 Procedures Procedure DOS Code Location Performer Comment URINLS 21091 A C RUBANO DIP 7 CARISSA MOSQUERA STICK/TAB PSC LET REAGNT NON-AUTO MICRSCPY URINLS 49815 A C FERRER DIP 6 CARISSA MOSQUERA STICK/TAB PSC LET REAGNT NON-AUTO MICRSCPY INJECTION J1885 [facility] LEIA 6 PHYSICIAN BONDS KETOROLAC S GROUP TROMETHAM INE PER 15 MG THERAPEUT 84851 [facility] LEIA IC 6 PHYSICIAN BONDS PROPHYLAC S GROUP TIC/DX INJECTION SUBQ/IM THERAPEUT 18726 [facility] IC 6 PHYSICIAN BARBIE PROPHYLAC S GROUP TIC/DX INJECTION SUBQ/IM INJECTION J1885 [facility] JOSE C 6 PHYSICIAN BARBIE KETOROLAC S GROUP TROMETHAM INE PER 15 MG INJECTION J1040 [facility] JOSE C 6 PHYSICIAN BARBIE METHYLPRE S GROUP DNISOLONE ACETATE 80 MG INJECTION J1040 [facility] TER 6 PHYSICIAN METHYLPRE S GROUP DNISOLONE ACETATE 80 MG THERAPEUT 82938 [facility] IC 6 PHYSICIAN PROPHYLAC S GROUP TIC/DX INJECTION SUBQ/IM THERAPEUT 05239 [facility] IC 6 PHYSICIAN PROPHYLAC S GROUP TIC/DX INJECTION SUBQ/IM INJECTION J1885 [facility] 6 PHYSICIAN KETOROLAC S GROUP TROMETHAM INE PER 15 MG INJECTION J1040 [facility] 5 PHYSICIAN METHYLPRE S GROUP DNISOLONE ACETATE 80 MG THERAPEUT 34216 [facility] IC 5 PHYSICIAN PHYSICIAN PROPHYLAC S GROUP S GROUP TIC/DX INJECTION SUBQ/IM COLLECTIO 85949 [facility] BLOOD [facility] INC VENIPUNCT [facility] BLOOD 37461 [facility] COUNT 5 [facility] COMPLETE INC INC AUTO&AUTO DIFRNTL WBC CYANOCOBA 32331 [facility] JADON [facility] VITAMIN INC INC B-12 IRON 02289 [facility] BINDING 5 [facility] [place] [address] [facility] FOLIC 5 [facility] [place] [address] [facility] IRON 5 [facility] INC INC OPHTH 21514 [facility] 5 GRE GRE XM&EVAL COMPRHNSV ESTAB PT 1/ RADEX 70014 [facility] SPINE 5 [facility] LUMBOSACR INC INC AL 2/3 VIEWS COLLECTIO 84203 [facility] N VENOUS 5 [facility] BLOOD INC INC VENIPUNCT URE RADEX 52693 [facility] SPINE 5 [facility] CERVICAL INC INC 2 OR 3 VIEWS BLOOD 14152 [facility] COUNT 5 [facility] COMPLETE INC INC AUTO&AUTO DIFRNTL WBC SMR PRIM 22227 TOSHA BEAN SRC WET 5 GENEVA CINTRON NFCT AGT BASIC 57539 [facility] METABOLIC 5 [facility] PANEL INC INC CALCIUM TOTAL BLOOD 15899 [facility] COUNT 5 [facility] COMPLETE INC INC AUTO&AUTO DIFRNTL WBC HEMOGLOBI 13204 [facility] N 5 [facility] GLYCOSYLA INC INC MAXX A1C LIPID 48385 [facility] PANEL 5 [facility] INC INC HEPATIC 86353 [facility] FUNCTION 5 [facility] PANEL INC INC COLLECTIO 33720 [facility] N VENOUS 5 [facility] [place] [address] [facility] THYROID 5 [facility] STIMULATI INC INC NG HORMONE TSH CHIROPRAC 97859 MAURIZIO ALMANZA TIC 5 N FAMILY JERALD MANIPULAT CHIROPRAC ROOPA TX T SPINAL 3-4 REGIONS APPL 26079 MAURIZIO ALMANZA MODALITY 5 N FAMILY JERALD 1/> AREAS CHIROPRAC TRACTION T MECHANICA L APPL 97616 MAURIZIO ARCHIE MODALITY 5 N FAMILY JERALD 1/> AREAS CHIROPRAC ELEC T STIMJ UNATTENDE D THERAPEUT 18829 MAURIZIO ALMANZA IC PX 1/> 5 N FAMILY JERALD AREAS CHIROPRAC EACH 15 T MIN EXERCISES THERAPEUT 30102 MAURIZIO ALMANZA IC PX 1/> 5 N FAMILY JERALD AREAS CHIROPRAC EACH 15 T MIN EXERCISES APPL 77799 MAURIZIO ARCHIE MODALITY 5 N FAMILY JERALD 1/> AREAS CHIROPRAC ELEC T STIMJ UNATTENDE D APPL 27472 MAURIZIO ARCHIE MODALITY 5 N FAMILY JERALD 1/> AREAS CHIROPRAC TRACTION T MECHANICA L CHIROPRAC 87219 MAURIZIO ALMANZA TIC 5 N FAMILY JERALD MANIPULAT CHIROPRAC [place]OP[place] TX T SPINAL 3-4 REGIONS RADEX 42900 YANEW ARCHIE SPINE 5 N FAMILY JERALD CERVICAL CHIROPRAC 2 OR 3 T VIEWS RADEX 52795 MAURIZIO ALMANZA SPINE 5 N FAMILY JERALD LUMBOSACR CHIROPRAC AL 2/3 T VIEWS IADNA 14187 TOSHA BEAN NEISSERIA 5 GENEVA POOLE GONORRHOE AE DIRECT PROBE TQ URINE 47235 TOSHA GIVENS R 5 GENEVA BEAN MD TEST VISUAL COLOR CMPRSN METHS URINLS 50775 TOSHA [place] DIP 5 GENEVA MOSQUERA ZULEMA STICK/TAB LET REAGNT NON-AUTO MICRSCPY CULTURE 45782 TOSHA BEAN CHLAMYDIA 5 GENEVA MOSQUERA ZULEMA ANY SOURCE URINE 69035 A C URBANO TRUDY 4 CARISSA MOSQUERA TEST PSC VISUAL COLOR CMPRSN METHS URINE 81275 GENEVA [place] 4 ZULEMA ZULEMA TEST VISUAL COLOR CMPRSN METHS INSJ 79974 CARIPENaomi [place] NON-BIODE 4 ZULEMA ZULEMA GRADABLE DRUG DELIVERY IMPLANT ETONOGEST J7307 HARPEL HARPEL REL 4 ZULEMA ZULEMA CNTRACPT IMPL SYS INCL IMPL & SPL REMOVAL 97145 HAR[facility] HARPEL INTRAUTER 4 ZULEMA ZULEMA INE DEVICE IUD IAADIADOO 92798 FIELD AMB FIELD AMB [address] [facility] 4 GRE GRE XM&EVAL COMPRHNSV ESTAB PT DETERMINA 42880 [facility] TION 4 GRE GRE REFRACTIV E STATE Encounters Encounter Start End Date Code Location Performer Type Date OFFICE 14791 A Mia CLEMENT OUTPATIEN 7 7 CARISSA MOSQUERA T VISIT [facility] 25 MINUTES OFFICE 91909 Karma FERRER OUTPATIEN 6 6 CARISSA MOSQUERA T VISIT [facility] 15 MINUTES OFFICE 23091 [facility] OUTPATIEN 6 6 [place] T VISIT 15 MINUTES OFFICE 64259 [facility] OUTPATIEN 6 6 [place]LOINA [place] T VISIT 15 MINUTES OFFICE 14136 [facility] LEIA OUTPATIEN 6 6 PHYSICIAN BONDS T VISIT S GROUP 15 MINUTES OFFICE 01626 [facility] JOSE C OUTPATIEN 6 6 PHYSICIAN BARBIE T VISIT S GROUP 15 MINUTES OFFICE 90439 [facility] TER OUTPATIEN 6 6 PHYSICIAN T VISIT S GROUP 15 MINUTES OFFICE 66611 [facility] OUTPATIEN 6 6 [place] T VISIT 15 MINUTES OFFICE 26530 [facility] TER OUTPATIEN 6 6 PHYSICIAN T VISIT S GROUP 15 MINUTES [facility] OUTPATI[facility] T OFFICE [address] [facility] [address] OUTPATIEN 5 5 [facility] T VISIT [facility] 15 MINUTES OFFICE 36588 [facility] JOSE C OUTPATIEN 5 5 [facility] T VISIT [facility] 15 MINUTES OFFICE 66580 [facility] OLIVAKY OUTPATIEN 5 5 [place] T VISIT 15 MINUTES EMERGENCY 12217 DOROTHY SNELL 5 5 PHYSICIAN BARBIE [facility]IGH/URGE NT SEVERITY OFFICE 51997 [place] OLIVAKY OUTPATIEN 5 5 [place] T VISIT 15 MINUTES OFFICE 47065 TOSHA BENA OUTPATIEN 5 5 GENEVA POOLE T VISIT 15 MINUTES [facility] T [facility]PAT[facility] T OFFICE 66293 A Mia CLEMENT TRUDY OUTPATIEN 5 5 CARISSA MOSQUERA T VISIT PSC 15 MINUTES OFFICE 23956 [facility] OUTPATIEN 5 5 N FAMILY JERALD T NEW 20 CHIROPRAC MINUTES T OFFICE 73225 A Mia CLEMENT TRUDY OUTPATIEN 5 5 CARISSA MOSQUERA T VISIT PSC 15 MINUTES OFFICE 93137 A Mia LEWIS OUTPATIEN 5 5 CARISSA OSPINA T VISIT PSC 15 MINUTES PERIODIC 30224 TOSHA BEAN PREVENTIV 5 5 GENEVA POOLE E MED EST PATIENT 18-39 YRS OFFICE 88844 A Mia CLEMENT TRUDY OUTPATIEN 4 4 CARISSA MOSQUERA T VISIT PSC 15 MINUTES OFFICE 94722 A Mia CLEMENT TRUDY OUTPATIEN 4 4 CARISSA MOSQUERA T VISIT PSC 15 MINUTES OFFICE 07073 HARPEL HARPEL OUTPATIEN 4 4 ZULEMA POOLE T VISIT 10 MINUTES OFFICE 35607 HARPEL HARPEL OUTPATIEN 4 4 ZULEMA ZULEMA T VISIT 25 MINUTES OFFICE 95855 URBANO TRUDY URBANO TRUDY OUTPATIEN 4 4 T VISIT 15 MINUTES OFFICE 76957 FIELD AMB FIELD AMB OUTPATIEN 4 4 T VISIT 15 MINUTES OFFICE 55832 URBANO YATES OUTPATIEN 4 4 T VISIT 10 MINUTES
--- OUTSIDE RECORDS SUMMARY | 2017-03-29 08:33 | External Medical Summary Rpt ---
Author Author , Organization [employer] Address Unknown Phone Unavailable Care Team Providers Care Magnetic Resonance Imaging Coordinator Name Role Phone A Mia FERRER MD [...] Unavailable ALIS BARBIE, ALIS Unavailable Unavailable [facility] Unavailable Unavailable [facility] TOSHA BEAN MD, Unavailable Unavailable TOSHA BEAN MD HARPEL ZULEMA, HARPEL Unavailable Unavailable ZULEMA HARPEL ZULEMA, HARPEL Unavailable Unavailable ZULEMA [facility] Un[facility] Unavailable [facility], [facility], Unavailable Unavailable [facility] ROD AUD, ROD AUD Unavailable Unavailable [facility] Unavailable Unavailable [facility], [facility] KILPELA JEA, KILPELA Unavailable Unavailable JEA CAMRYN GRE, Unavailable Unavailable CAMRYN GRE CAMRYN GRE, Unavailable Unavailable CAMRYN GRE URBANO, URBANO Unavailable Unavailable URBANO TRUDY, URBANO TRUDY Unavailable Unavailable URBANO TRUDY, URBANO TRUDY Unavailable Unavailable [facility], [facility] Unavailable Unavailable [id number] [address] [id number], [facility] [id number] # [id number] ARCHIE WILL Unavailable Unavailable CARISSA PAZ Unavailable Unavailable Purpose Continuity of Care Document - 10-08-2013 through 2016 Problems Code Diagnosis DOS Provider Status [id number] MIGRAINE 02-13-2017 Karma FERRER W/O [employer] MOSQUERA PSC NOT INTRACT W/STAT MIGRAINOSUS R300 DYSURIA 02-13-2017 Karma FERRER MD PSC [id number] CONCUSSION 02-13-2017 Karma FERRER WITHOUT LOC PSC INITIAL ENCOUNTER N390 URINARY 09-14-2016 Karma LIANG MD [facility] INFECTION SITE NOT SPECIFIED [id number] SPRAIN UNS 06-01-2016 [facility] LIGAMENT LEFT ANKLE INITIAL ENCOUNTER [id number] MIGRAINE 02-21-2016 [facility] UNS NOT PHYSICIANS INTRACT W/O GROUP STATUS MIGRAINOSUS J40 BRONCHITIS 02-21-2016 [facility] NOT PHYSICIANS SPECIFIED GROUP ACUTE OR CHRONIC J329 CHRONIC 02-05-2016 [facility] SINUSITIS PHYSICIANS UNSPECIFIED GROUP J0190 ACUTE 01-07-2016 [facility] SINUSITIS PHYSICIANS UNSPECIFIED GROUP R05 COUGH 01-07-2016 [facility] B86 SCABIES 11-17-2015 [facility] R51 HEADACHE 10-29-2015 [facility] J0191 ACUTE 09-24-2015 [facility] RECURRENT PHYSICIANS SINUSITIS GROUP UNSPECIFIED J209 ACUTE 09-24-2015 [facility] BRONCHITIS PHYSICIANS UNSPECIFIED GROUP J42 UNSPECIFIED 09-04-2015 [facility]ON[facility] R5383 OTHER 09-04-2015 [facility] 3671 MYOPIA 04-28-2015 CAMRY[facility] SAMUEL 7840 HEADACHE 04-27-2015 [facility] 490 BRONCHITIS 03-10-2015 [facility] ACUTE OR CHRONIC 31606 CONTACT 03-10-2015 [facility]ERMAT[facility]IS[facility] OTHER [facility] ECZEMA DUE TO SUNBURN 4779 ALLERGIC 01-15-2015 [facility] RHINITIS CAUSE UNSPECIFIED 1121 CANDIDIASIS 01-09-2015 TOSHA Melendez OF [facility] V[facility] 7231 CERVICALGIA 01-09-2015 [facility] 7242 LUMBAGO 01-09-2015 [facility] 7245 UNSPECIFIED 01-09-2015 [facility] 28297 OTHER 01-09-2015 [facility] FATIG[facility] 2724 OTHER AND 12-12-2014 [facility] HYPERLIPIDE LYNETTE 4011 ESSENTIAL 12-12-2014 [facility], BENIGN INC 82001 INSOMNIA 12-12-2014 [facility] 94259 OBESITY, 12-02-2014 A Mia SANABRIAIFIED PSC 7831 ABNORMAL 12-02-2014 A Mia FERRER WEIGHT GAIN PSC V8536 BODY MASS 12-02-2014 A Mia FERRER INDEX PSC 36.0-36.9 ADULT 3530 BRACHIAL 11-21-2014 [facility] 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-21-2014 [place] 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 [facility] 7391 NONALLOPATH 11-21-2014 [facility] IC LESION FAMILY OF CERVICAL [facility]IR[facility] REGION NEC 7392 NONALLOPATH 11-21-2014 [facility] [facility] OF THORACIC [facility]IR[facility] REGION NEC 7393 NONALLOPATH 11-21-2014 [facility] [facility] OF LUMBAR [facility]IR[facility] REGION NEC 7394 NONALLOPATH 11-21-2014 [facility] [facility] OF SACRAL CHIROPRACT REGION [...] ZULEMA E PREV PRSC INTRAUTERN CNTRACPT DEVC 39088 UNSPECIFIED 01-30-2014 URBANO TRUDY ACUTE CONJUNCTIVI TIS 4659 ACUTE URIS 01-30-2014 URBANO TRUDY OF UNSPECIFIED SITE 55515 FEVER 11-22-2013 FIELD AMB UNSPECIFIED V720 EXAMINATION [...] 10 #3 MG 93 8 TA B MI 00 05 06 60 30 00 RI [...] 05 06 60 30 00 RI Ac MI 50 -1 -0 .0 00 TE ti [...] 04 05 60 30 00 RI Ac MI 78 -1 -1 .0 00 TE ti [...] 04 05 60 30 00 RI Ac MI 46 -0 -0 .0 00 TE ti [...] #3 MG 93 8 TA BL ET MI 00 03 04 10 2 00 RI [...] 10 #3 MG 93 8 TA B MI 00 03 04 60 30 00 RI [...] 03 04 60 30 00 RI Ac MI 50 -1 -0 .0 00 TE ti OP 50 5- 7- 00 01 ve IO 15 20 20 17 AI N 80 17 17 53 D HC 1 95 PH L AR 75 MA CY MG #3 TA 93 BL 8 ET NA 68 02 03 60 30 00 RI Ac MI 46 -2 -2 .0 00 TE ti [...] 01 02 30 30 00 RI Ac MI 37 -2 -1 .0 00 TE ti OP 00 0- 7- 00 01 ve IO 10 20 20 14 AI N 10 17 17 78 D HC 3 57 PH L AR XL MA CY 15 0 #3 MG 93 8 TA BL ET NA 68 01 02 60 30 00 RI Ac MI 46 -2 -1 .0 00 TE ti [...] 12 01 60 30 00 RI Ac MI 46 -0 -0 .0 00 TE ti [...] 12 01 30 30 00 RI Ac MI 37 -0 -0 .0 00 TE ti OP 00 9- 9- 00 01 ve IO 10 20 20 14 AI N 10 16 17 78 D HC 3 57 PH L AR XL MA CY 15 0 #3 MG 93 8 TA BL ET NA 68 08 10 5 60 30 RI 11 BR Ac MI 46 -2 -2 0. TE 46 OD ti OX 20 5- 6- 00 00 SK ve EN 19 20 20 0 AI 8 Y 00 16 16 D KE 50 1 PH NN 0 AR ET MG MA H CY M TA BL 03 ET 93 8 # 03 93 BU 10 09 10 5 30 30 RI 11 BR Ac MI 37 -0 -2 0. TE 47 OD ti OP 00 7 6 85 SK ve IO 10 20 20 0 AI 7 Y N 10 16 16 D KE HC 3 PH NN L AR ET XL MA H CY M 15 0 03 MG 93 8 TA # BL 03 ET 93 Procedures Procedure DOS Code Location Performer Comment URINLS 03053 A C URBANO DIP 7 CARISSA MOSQUERA STICK/TAB PSC LET REAGNT NON-AUTO MICRSCPY URINLS 06432 A C FERRER DIP 6 CARISSA MOSQUERA STICK/TAB PSC LET REAGNT NON-AUTO MICRSCPY INJECTION J1885 [facility] LEIA 6 PHYSICIAN BONDS KETOROLAC S GROUP TROMETHAM INE PER 15 MG THERAPEUT 49071 [facility] LEIA IC 6 PHYSICIAN BONDS PROPHYLAC S GROUP TIC/DX INJECTION SUBQ/IM THERAPEUT 93659 [facility] IC 6 PHYSICIAN BARBIE PROPHYLAC S GROUP TIC/DX INJECTION SUBQ/IM INJECTION J1885 [facility] JOSE C 6 PHYSICIAN BARBIE KETOROLAC S GROUP TROMETHAM INE PER 15 MG INJECTION J1040 [facility] JOSE C 6 PHYSICIAN BARBIE METHYLPRE S GROUP DNISOLONE ACETATE 80 MG INJECTION J1040 [facility] RIV[facility] TER 6 PHYSICIAN METHYLPRE S GROUP DNISOLONE ACETATE 80 MG THERAPEUT 00560 [facility] R[facility] TER IC 6 PHYSICIAN PROPHYLAC S GROUP TIC/DX INJECTION SUBQ/IM THERAPEUT 57277 [facility] IC 6 PHYSICIAN PROPHYLAC S GROUP TIC/DX INJECTION SUBQ/IM INJECTION J1885 [facility] R[facility] TER 6 PHYSICIAN KETOROLAC S GROUP TROMETHAM INE PER 15 MG INJECTION J1040 [facility] R[facility] TER 5 PHYSICIAN METHYLPRE S GROUP DNISOLONE ACETATE 80 MG THERAPEUT 55429 [facility] IC 5 PHYSICIAN PHYSICIAN PROPHYLAC S GROUP S GROUP TIC/DX INJECTION SUBQ/IM COLLECTIO 33382 [facility]OUS [facility] BLOOD INC INC VENIPUNCT [facility] BLOOD 50515 [facility] COUNT 5 [facility] COMPLETE INC INC AUTO&AUTO DIFRNTL WBC CYANOCOBA 20327 [facility] JADON [facility] VITAMIN INC INC B-12 IRON 88739 [facility] BINDING [facility] [place] [address] [facility] FOLIC 5 [facility] [place] [address] [facility] IRON 5 [facility] INC INC OPHTH 24667 [facility] 5 GRE GRE XM&EVAL COMPRHNSV ESTAB PT 1/ RADEX 03637 [facility] SPINE 5 [facility] LUMBOSACR INC INC AL 2/3 VIEWS COLLECTIO 28090 [facility] N VENOUS 5 [facility] BLOOD INC INC VENIPUNCT URE RADEX 95215 [facility] SPINE 5 [facility] CERVICAL INC INC 2 OR 3 VIEWS BLOOD 56214 [facility] COUNT 5 [facility] COMPLETE INC INC AUTO&AUTO DIFRNTL WBC SMR PRIM 08158 TOSHA BEAN SRC WET 5 GENEVA CINTRON NFCT AGT BASIC 14495 [facility] METABOLIC 5 [facility] PANEL INC INC CALCIUM TOTAL BLOOD 36109 [facility] COUNT 5 [facility] COMPLETE INC INC AUTO&AUTO DIFRNTL WBC HEMOGLOBI 46715 [facility] N 5 [facility] GLYCOSYLA INC INC MAXX A1C LIPID 25719 [facility] PANEL 5 [facility] INC INC HEPATIC 76001 [facility] FUNCTION 5 [facility] PANEL INC INC COLLECTIO 37119 [facility] N VENOUS 5 [facility] [place] [address] [facility] THYROID 5 [facility] STIMULATI INC INC NG HORMONE TSH CHIROPRAC 96383 MAURIZIO ALMANZA TIC 5 N FAMILY JERALD MANIPULAT CHIROPRAC ROOPA TX T SPINAL 3-4 REGIONS APPL 56066 MAURIZIO ALMANZA MODALITY 5 N FAMILY JERALD 1/> AREAS CHIROPRAC TRACTION T MECHANICA L APPL 59104 MAURIZIO ARCHIE MODALITY 5 N FAMILY JERALD 1/> AREAS CHIROPRAC ELEC T STIMJ UNATTENDE D THERAPEUT 35101 MAURIZIO ALMANZA IC PX 1/> 5 N FAMILY JERALD AREAS CHIROPRAC EACH 15 T MIN EXERCISES THERAPEUT 03369 MAURIZIO ALMANZA IC PX 1/> 5 N FAMILY JERALD AREAS CHIROPRAC EACH 15 T MIN EXERCISES APPL 16926 MAURIZIO ARCHIE MODALITY 5 N FAMILY JERALD 1/> AREAS CHIROPRAC ELEC T STIMJ UNATTENDE D APPL 44123 MAURIZIO ARCHIE MODALITY 5 N FAMILY JERALD 1/> AREAS CHIROPRAC TRACTION T MECHANICA L CHIROPRAC 60344 MAURIZIO ALMANZA TIC 5 N FAMILY JERALD MANIPULAT CHIROPRAC [place] TX T SPINAL 3-4 REGIONS RADEX 51658 YANEW ARCHIE SPINE 5 N FAMILY JERALD CERVICAL CHIROPRAC 2 OR 3 T VIEWS RADEX 24051 MAURIZIO ALMANZA SPINE 5 N FAMILY JERALD LUMBOSACR CHIROPRAC AL 2/3 T VIEWS IADNA 80489 TOSHA BEAN NEISSERIA 5 GENEVA POOLE GONORRHOE AE DIRECT PROBE TQ URINE 34451 TOSHA GIVENS R 5 GENEVA BEAN MD TEST VISUAL COLOR CMPRSN METHS URINLS 43786 [facility]HA [place] DIP 5 GENEVA MOSQUERA ZULEMA STICK/TAB LET REAGNT NON-AUTO MICRSCPY CULTURE 52024 TOSHA BEAN CHLAMYDIA 5 GENEVA MOSQUERA ZULEMA ANY SOURCE URINE 48909 A C URBANO TRUDY 4 CARISSA MOSQUERA TEST PSC VISUAL COLOR CMPRSN METHS URINE 27104 [facility] [place] 4 ZULEMA ZULEMA TEST VISUAL COLOR CMPRSN METHS INSJ 99684 CARIPENaomi [place] NON-BIODE 4 ZULEMA ZULEMA GRADABLE DRUG DELIVERY IMPLANT ETONOGEST J7307 [facility] HARPEL REL 4 ZULEMA ZULEMA CNTRACPT IMPL SYS INCL IMPL & SPL REMOVAL 75932 [facility] HARPEL INTRAUTER 4 ZULEMA ZULEMA INE DEVICE IUD IAADIADOO 73395 FIELD AMB FIELD AMB 4 INFLUENZA OPHTH 56977 [facility] 4 GRE GRE XM&EVAL COMPRHNSV ESTAB PT DETERMINA 22705 [facility] TION 4 GRE GRE REFRACTIV E STATE Encounters Encounter Start End Date Code Location Performer Type Date OFFICE 46610 A Mia CLEMENT OUTPATIEN 7 7 CARISSA MOSQUERA T VISIT [facility] 25 MINUTES OFFICE 75259 Karma FERRER OUTPATIEN 6 6 CARISSA MOSQUERA T VISIT [facility] 15 MINUTES OFFICE 13110 [facility] OUTPATIEN 6 6 [place] T VISIT 15 MINUTES OFFICE 85927 [facility] OUTPATIEN 6 6 [place] T VISIT 15 MINUTES OFFICE 89687 [facility] LEIA OUTPATIEN 6 6 PHYSICIAN BONDS T VISIT S GROUP 15 MINUTES OFFICE 52330 [facility] JOSE C OUTPATIEN 6 6 PHYSICIAN BARBIE T VISIT S GROUP 15 MINUTES OFFICE 31146 [facility] R[facility]AS TER OUTPATIEN 6 6 PHYSICIAN T VISIT S GROUP 15 MINUTES OFFICE 39092 [facility] OUTPATIEN 6 6 [place] T VISIT 15 MINUTES OFFICE 17119 [facility] R[facility]AS TER OUTPATIEN 6 6 PHYSICIAN T VISIT S GROUP 15 MINUTES [facility]OSP[facility] - 5 5 [facility] OUTPATIEN INC T OFFICE [address] [facility] [address] OUTPATIEN 5 5 [facility] T VISIT [facility] 15 MINUTES OFFICE 30372 [facility] JOSE C OUTPATIEN 5 5 [facility] 15 MINUTES OFFICE 74105 [facility] OLIVAK[facility] OUTPATIEN 5 5 [place] T VISIT 15 MINUTES EMERGENCY 37910 [facility] SNELL 5 5 [facility]ICIAN [facility]URGE NT SEVERITY OFFICE 04182 [facility]IVAK[facility] OUTPATIEN 5 5 [place] T VISIT 15 MINUTES OFFICE 69418 TOSHA BEAN OUTPATIEN 5 5 GENEVA POOLE T VISIT 15 MINUTES [facility] 5 [facility] OUTPATIEN INC T [facility] - 5 5 [facility] OUTPATIEN INC T OFFICE 24640 A Mia CLEMENT TRUDY OUTPATIEN 5 5 CARISSA MOSQUERA T VISIT PSC 15 MINUTES OFFICE 47092 [facility] OUTPATIEN 5 5 N FAMILY JERALD T NEW 20 CHIROPRAC MINUTES T OFFICE 67968 A Mia CLEMENT TRUDY OUTPATIEN 5 5 CARISSA MOSQUERA T VISIT PSC 15 MINUTES OFFICE 36026 A Mia LEWIS OUTPATIEN 5 5 CARISSA OSPINA T VISIT PSC 15 MINUTES PERIODIC 48227 TOSHA BEAN PREVENTIV 5 5 GENEVA POOLE E MED EST PATIENT 18-39 YRS OFFICE 71093 A Mia CLEMENT TRUDY OUTPATIEN 4 4 CARISSA MOSQUERA T VISIT PSC 15 MINUTES OFFICE 76144 A Mia CLEMENT TRUDY OUTPATIEN 4 4 CARISSA MOSQUERA T VISIT PSC 15 MINUTES OFFICE 04375 [facility] HARPEL OUTPATIEN 4 4 ZULEMA POOLE T VISIT 10 MINUTES OFFICE 86995 HARPE[facility] HARPEL OUTPATIEN 4 4 ZULEMA ZULEMA T VISIT 25 MINUTES OFFICE 08857 URBANO TRUDY URBANO TRUDY OUTPATIEN 4 4 T VISIT 15 MINUTES OFFICE 86058 FIELD AMB FIELD AMB OUTPATIEN 4 4 T VISIT 15 MINUTES OFFICE 32913 URBANO YATES OUTPATIEN 4 4 T VISIT 10 MINUTES
--- OUTSIDE RECORDS SUMMARY | 2017-03-29 08:33 | External Medical Summary Rpt ---
Author Author , Organization [employer] Address Unknown Phone Unavailable Purpose Continuity of Care Document - 08-30-2005 through 2016 Immunization Name Date Route CVX Reacti Commen Provid Is Given on t er Refuse d Td Histor H149 No (adult 2005 ical ), Inform adsorb ation ed - Source Unspec ified
--- OUTSIDE RECORDS SUMMARY | 2017-03-29 08:33 | External Medical Summary Rpt ---
Author Author LADANJOSE C Reeder, [employer] Organization [employer] Address Unknown Phone Unavailable Results CHLAMYDIA AND GONORRHEA TESTING Observa Value Referen Units Interpr Notes Date tion ce etation Range COLLECT M. No No No No Jul 23 OR RHOADES informa informa informa informa 2013 PECAN CLEANER tion in tion in tion in tion in 4:30 PM source source source source data data data data ETHNICI WHITE, No No No No Jul 23 TY NON-HIS informa informa informa informa 2013 PANIC tion in tion in tion in tion in 4:30 PM source source source source data data data data KIT 03-31-2 No No No No Jul 23 EXPIRAT 014 informa informa informa informa 2013 ION tion in tion in tion in tion in 4:30 PM DATE source source source source data data data data SYMPTOM NO No No No No Jul 23 S informa informa informa informa 2013 tion in tion in tion in tion in 4:30 PM source source source source data data data data REASON REVISIT No No No No Jul 23 FOR /ANNUAL informa informa informa informa 2013 REQUEST FAMILY tion in tion in tion in tion in 4:30 PM source source source source PLANNIN data data data data G VISIT SPECIME FEMALE No No No No Jul 23 N ENDOCER informa informa informa informa 2013 SOURCE VICAL tion in tion in tion in tion in 4:30 PM source source source source data data data data PREGNAN NO No No No No Jul 23 T informa informa informa informa 2013 tion in tion in tion in tion in 4:30 PM source source source source data data data data CHART M. No No No No Jul 23 NUMBER RHOADES informa informa informa informa 2013 PECAN CLEANER tion in tion in tion in tion in 4:30 PM source source source source data data data data Chlamyd NEGATIV No No No NEGATIV Jul 23 ia E informa informa informa E 2013 trachom tion in tion in tion in RESULT= 4:30 PM atis source source source WITHIN rRNA data data data NORMAL [Presen ce] in LIMITSP Unspeci OSITIVE fied specime RESULT= n by Probe & ABNORMA target LEQUIVO MARICRUZ amplifi RESULT= cation method INDETER MINATEU NSATISF ACTORY RESULT= INVALID Neisser NEGATIV No No No NEGATIV Jul 23 ia E informa informa informa E 2013 gonorrh tion in tion in tion in RESULT= 4:30 PM oeae source source source WITHIN rRNA data data data NORMAL [Presen ce] in LIMITSP Unspeci OSITIVE fied specime RESULT= n by Probe & ABNORMA target LEQUIVO MARICRUZ amplifi RESULT= cation method INDETER MINATEU NSATISF ACTORY RESULT= INVALID THE APTIMA COMBO 2 ASSAY IS NOT INTENDE D FOR THE EVALUAT ION OF SUSPECT EDSEXUA L ABUSE OR FOR OTHER MEDICO- LEGAL INDICAT IONS. FOR THOSE PATIENT S FORWHOM A FALSE POSITIV E RESULT MAY HAVE ADVERSE PSYCHO- SOCIAL IMPACT, [facility] MMENDS RETESTI NG.\.br \This report contain s patient informa tion that must be protect ed in accorda nce with the Health Insuran ce Portabi lity and Account ability Act. CHLAMYDIA AND GONORRHEA TESTING Observa Value Referen Units Interpr Notes Date tion ce etation Range COLLECT M. No No No No Jul 23 OR RHOADES informa informa informa informa 2012 PECAN CLEANER tion in tion in tion in tion in 4:30 PM source source source source data data data data ETHNICI WHITE, No No No No Jul 23 TY NON-HIS informa informa informa informa 2013 PANIC tion in tion in tion in tion in 4:30 PM source source source source data data data data KIT 03-31-2 No No No No Jul 23 EXPIRAT 014 informa informa informa informa 2013 ION tion in tion in tion in tion in 4:30 PM DATE source source source source data data data data SYMPTOM NO No No No No Jul 23 S informa informa informa informa 2013 tion in tion in tion in tion in 4:30 PM source source source source data data data data REASON REVISIT No No No No Jul 23 FOR /ANNUAL informa informa informa informa 2013 REQUEST FAMILY tion in tion in tion in tion in 4:30 PM source source source source PLANNIN data data data data G VISIT SPECIME FEMALE No No No No Jul 23 N ENDOCER informa informa informa informa 2013 SOURCE VICAL tion in tion in tion in tion in 4:30 PM source source source source data data data data PREGNAN NO No No No No Jul 23 T informa informa informa informa 2013 tion in tion in tion in tion in 4:30 PM source source source source data data data data CHART M. No No No No Jul 23 NUMBER RHOADES informa informa informa informa 2013 PECAN CLEANER tion in tion in tion in tion in 4:30 PM source source source source data data data data Chlamyd Pending No No No No Jul 23 ia informa informa informa informa 2013 trachom tion in tion in tion in tion in 4:30 PM atis source source source source rRNA data data data data [Presen ce] in Unspeci fied specime n by Probe & target amplifi cation method Neisser Pending No No No \.br\Th Jul 23 ia informa informa informa is 2013 gonorrh tion in tion in tion in report 4:30 PM oeae source source source contain rRNA data data data s [Presen patient ce] in Unspeci informa fied tion specime that n by must be Probe & target protect ed in amplifi accorda cation nce method with the Health Insuran ce Portabi lity and Account ability Act.
--- OUTSIDE RECORDS SUMMARY | 2017-03-29 08:33 | External Medical Summary Rpt ---
Author Author LADANJOSE C Reeder, [employer] [facility] Organization [employer] Address Unknown Phone Unavailable Results CHLAMYDIA AND GONORRHEA TESTING Observa Value Referen Units Interpr Notes Date tion ce etation Range COLLECT M. No No No No Jul 23 OR RHOADES informa informa informa informa 2013 CORN COOKER tion in tion in tion in tion [...] NUMBER RHOADES informa informa informa informa 2013 CORN COOKER tion in tion in tion in tion [...] MAY HAVE ADVERSE PSYCHO- SOCIAL IMPACT, [facility] MM[facility] RETESTI NG.\.br \This report contain s patient informa tion that must be protect ed in accorda nce with the Health Insuran ce Portabi lity and Account ability Act. CHLAMYDIA AND GONORRHEA TESTING Observa Value Referen Units Interpr Notes Date tion ce etation Range COLLECT M. No No No No Jul 23 OR RHOADES informa informa informa informa 2012 CORN COOKER tion in tion in tion in tion [...] NUMBER RHOADES informa informa informa informa 2013 CORN COOKER tion in tion in tion in tion [...]
[2017-03-29] MEDS ORDERED: PHENERGAN25 M3 PO (09:47)
[2017-03-29] MEDS ORDERED: IMITREX 25MG TA25 MG PO (09:47)
[2017-03-29 09:50] VITALS: BP 125/75
== END 2017-03-29 09:51 | disposition home or self-care (01) ==
LOC: ER 07:56
DX: G43.001 Migraine without aura, not intractable, with status migrainosus (principal); Z72.0 Tobacco use

== ENCOUNTER 2017-07-06 11:13 | Emergency (ER) | payer MEDICAID ==
[~2017-07-06] VITALS: Ht 154.9 cm; Wt 84.8 kg
[~2017-07-06 11:13] MED LIST changes: +VISTARIL25 MG PO
[2017-07-06 12:12] LABS: URINE BILIRUBIN - DIPSTICK NEGATIVE (NEG); URINE BLOOD NEGATIVE (NEG)
[2017-07-06 12:32] LABS: URINE SQUAMOUS CELLS OCC #/hpf (0-5)
[2017-07-06 12:51] LABS: LYMPH # 2.8 K/mm3 (0.7-4.5); LYMPH % 20.6 % (10-50.0)
[2017-07-06 13:07] LABS: HEMOGLOBIN 14.3 g/dL (12.2-16.2)
--- NOTE | 2017-07-06 13:20 | Emergency Room Report ---
History of Present Illness Time Seen by [id number] Presenting Problem in Triage Pt arrived:Walked Presenting Problem:PT C/O NAUSEA AND VOMITING FOR A MONTH. SHE HAS BEEN SEEING HER MD FOR THE PAST MONTH WHO THINKS SHE IS HAVING GB PROBLEMS. PT ADVISES SHE HAS VOMITED TWICE AND ZOFRAN HASN'T HELPED Onset of symptoms date/time:/ or onset unknown for:MEDICAL HX UNKNOWN Treatment Prior to Arrival: [employer] Provided by: Sepsis Risk Assessment: Temp: 98.2 B/P: 134/76 MAP: 95 Pulse: 97 Resp: 16 Recent fever? N Clinical Suspician of Infection? N Mental Status: 1 - Regular (Normal Baseline) Sepsis Risk:Low Sepsis Risk Have you (or family members/close friends) recently traveled outside the [place]? N If Yes, where/when: Have you had exposure to infectious disease within the past month? N TB? Other? Specify: Is old white female who presented to 6 weeks history of RIGHT upper quadrant pain nausea vomiting X 4 A DAY AND LOOSE STOOL 4-5 TIMES. She contacted her primary care physician prescribed her Phenergan twice a day. She is able to drink but unable to eat. She urinated about 6 times yesterday. This morning she drank water and coffee took her Phenergan and vomited once. She is seeing the Phenergan is not working anymore. She is due for an ultrasound on Monday, July 10, 2017. She is in no acute distress. She denies having chest pain shortness of breath palpitations or respiratory difficulty. Source patient, RN notes reviewed Exam Limitations no limitations ALLERGIES Coded Allergies: No Known Allergies (12/09/16) Home Medications Active Scripts Sumatriptan Succinate (Imitrex 25MG Tablet) 25 MG PO ONCE #10 TAB Prov: 03/29/17 PROMETHAZINE HCL (Phenergan 25MG Tab (Geq)) 25 MG PO Q6HP PRN N/V #14 TAB Prov: 03/29/17 Reported Medications Hydroxyzine Pamoate (Vistaril) 25 MG PO PRN PRN ANXIETY History Medical History General CAD? No Angina: No [place]: No Hypertension? No Hyperlipidemia? No CHF? No DVT? No PE? No COPD? No Asthma? No Anemia? No GERD? No Gastric ulcers? No GI Bleed? No Hernia? No Thyroid Problems? No Hypothyroidism? No CVA? No Seizures? No Diabetes? No Renal Insuffiency? No End Stage Renal Disease? No UTI? No Stones? No BPH? No GB Disease: No Nephritic Syndrome? No Asplenia? No Hepatitis? No Sickle Cell Disease? No Arthritis? No Migraines? Yes Cataracts? No Glaucoma? No MRSA? No HIV? No TB? No Anxiety? No Depression? Yes Cancer? No More? 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 NURSE LIAISON Hx LMP N/A Family History Family Hx Diabetes No CAD No Hypertension Yes Hyperlipidemia Yes Cancer No TB No Social History Smoking Hx Smoker: Current Every Day Smoker Tobacco: Yes Type Cigarettes Packs/day 1 1/2 - 2 Packs Alcohol Alcohol: No Review of Systems All Other Systems Reviewed and Negative Constitutional no symptoms reported Eyes no symptoms reported ENT no symptoms reported. Respiratory no symptoms reported Cardiovascular no symptoms reported Gastrointestinal see HPI, abdominal pain, diarrhea, nausea (RUQ PAIN) Genitourinary no symptoms reported. Musculoskeletal no symptoms reported Skin no symptoms reported Psychiatric/Neurological no symptoms reported Physical Exam Vital Signs Vital Signs Date Time Temp Pulse Resp B/P Pulse O2 O2 Flow FiO2 Ox Delivery Rate 07/06 1557 74 16 132/74 98 07/06 1424 70 16 130/70 98 07/06 1141 98.2 97 16 134/76 98 - WBC >12,000 or <4,000 or 10% bands? 2 or more SIRS Criteria Met? B/P:134/76 MAP:95 Creatinine >2.0? UA output<0.5ml/kg/hr for 2 hrs? Platelet count >100,000? Lactate >2.0mmol/1? INR >1.2 or PTT > than 60 sec? Evidence of Organ Dysfunction? Provider documented clinical suspician of infection? N Sepsis Criteria Count: 1 Sepsis Risk: Low Sepsis Risk General Appearance normal appearance, WD/WN Eye Exam - bilateral eye normal exam, bilateral eye PERRL, bilateral eye EOMI Ear, Nose, Throat hearing grossly normal, normal ENT inspection Neck normal inspection, non-tender, supple, full range of motion Respiratory Status Yes: trachea midline, chest symmetrical, non tender chest. No: respiratory distress. Lung Sounds bilateral: normal breath sounds, lungs clear. Cardiovascular normal exam, regular rate/rhythm, no peripheral edema, no gallop, no JVD, no murmur, no rub, normal peripheral pulses Gastrointestinal normal bowel sounds, normal exam, soft, no guarding, no rebound , OBESE AND SOFT ABDOMEN WITH TENDERNESS OVER THE right UPPER QUADRANT POSITIVE Watson'S SIGN, NO CROSS TENDERNESS NO REBOUND TENDERNESS NO GUARDING NO RIGIDITY POSITIVE BOWEL SOUNDS. Back normal inspection, no CVA tenderness, no vertebral tenderness Extremities non-tender, normal range of motion, normal inspection Neurologic alert, mfg assoc II-XII nml as tested, normal exam, oriented x 3 Reflexes Reflexes normal Yes Mental status normal mood/affect Skin intact, normal color, warm/dry Medical Decision Making LABS/Meds/Orders Pt receiving controlled substance in ED? No Results/Orders Laboratory Tests 07/06/17 1240: Troponin I < 0.02, TSH 0.59, Free T4 Index 7.6, Thyroxine (T4) 8.7, T3 Uptake 35 07/06/17 1240: Sodium 142, Potassium 3.5, Chloride 108 H, Carbon Dioxide 29, BUN 5 L, Creatinine 0.7, Estimated Creat Clear 157, Estimated GFR (MDRD) 98, Glucose 83, Calcium 8.8, Total Bilirubin 0.2, AST 9 L, ALT 13, Alkaline Phosphatase 72, Total Protein 7.2, Albumin 3.8, Globulin 3.4 H, Albumin/Globulin Ratio 1.1, Amylase 39, Lipase 127, WBC 13.8 H, RBC 4.66, Hgb 14.3, Hct 43.0, MCV 92.3, RDW 12.6, Plt Count 287, MPV 7.8, Gran % 73.8, Gran # 10.2 H, Lymphocytes % 20.6, Monocytes % 3.7, Eosinophils % 1.5, Basophils % 0.4, Lymphocytes # 2.8, Monocytes # 0.5, Eosinophils # 0.2, Basophils # 0.1, PUBS MCHC 33.0, MCH 30.5 07/06/17 1155: Urine Color YELLOW, Urine Appearance CLEAR, Urine pH 6.5, Ur Specific [place] <= 1.005, Urine Protein NEGATIVE, Urine Ketones NEGATIVE, Urine Blood NEGATIVE, Urine Nitrate NEGATIVE, Urine Bilirubin NEGATIVE, Urine Urobilinogen 0.2, Ur Leukocyte Esterase NEGATIVE, Urine RBC NONE, Urine WBC OCC, Ur Squamous Epith Cells OCC, Urine Bacteria 2+, Urine Mucus 2+, Urine Glucose NEGATIVE Current Medication Orders Sig/Brendan Start time Last Medication Dose Route Stop Time Status Admin Famotidine 20 MG ONCE ONE 07/06 1315 DC 07/06 IV 07/06 1316 1326 Ondansetron HCl 4 MG ONCE ONE 07/06 1315 DC 07/06 IV 07/06 1316 1326 Sodium Chloride 1,000 ML .Q1H1M 07/06 1315 DC 07/06 IV 07/06 1415 1327 Sodium Chloride 10 ML PRN PRN 07/06 1315 AC IV 07/07 1313 Sodium Chloride 8 ML ONCE ONE 07/06 1315 DC 07/06 IV 07/06 1316 1430 Sodium Chloride 10 ML PRN PRN 07/06 1245 AC IV 07/07 1235 Orders Procedure Date/time Status US GALLBLADDER (ABD LTD) 07/06 131 Active TROPONIN I 07/06 131 Complete THYROID PANEL 2 (WITH TSH) 07/06 1312 Complete IV SALINE LOCK 07/06 1235 Active LIPASE 07/06 1235 Complete CBC WITH AUTO DIFF 07/06 1235 Complete CHEM 12 PROFILE 07/06 1235 Complete AMYLASE 07/06 1235 Complete URINE 07/06 1159 Complete URINALYSIS/COMPLETE 07/06 1157 Complete CULTURE, URINE 07/06 1155 Active XRAY/CT/US XRAY/CT/US XRAY chest, abdomen XR interpretation by reviewed by me, discussed w/radiologist Xray Results normal/NAD, no infiltrates Departure Departure Time of Disposition 131 Disposition DC Home or Self Care(routine) Clinical Impression Primary Impression: RUQ abdominal pain Secondary Impressions: Nausea & vomiting Condition STABLE Referrals [facility] (Family) Additional Instructions The patient underwent a negative ultrasound for gallstones. She felt better and tolerated by mouth intake. She is advised to follow-up with her primary care physician and obtain a HIDA scan. She verbalizes understanding. Continue the same medications were started here in the ER 1- zantac 2- zofran ODt 3- Bentyl 4- drink 16 oz of gotrade q 4 5- observe 4-5 uop a day 6- return as needed 7- see Dr Saab for outpatient HIDA scan Discharge Counseling Counseled pt/family regarding diagnosis, test results, medications/RX, home care, follow up needs Prescriptions Current Visit Scripts Ranitidine Hcl (Zantac) 150 MG PO BID #30 TAB Ref 1 Ondansetron (Zofran 4MG Odt) 4 MG PO Q6HP PRN NAUSEA AND VOMITING #12 ODT DICYCLOMINE HCL (Bentyl) 10 MG PO Q8 #21 CAP Ref 1 ED Critical Care Critical Care No If Critical Care minutes are documented, the time involved in the performance of seperately reportable procedures was not counted toward critical care time documented. I directly delivered medical care to this critically ill and/or injured patient. Timely evaluation and treatment was necessary to address the significant organ system(s) dysfunction present in this patient. at 0491
[2017-07-06 13:36] LABS: FREE THYROXIN INDEX 7.6 ug/dl (5.93-13.13)
--- NOTE | 2017-07-06 14:47 | RADIOLOGY REPORT PS360 ---
ABD ACUTE(MUL VIEWS) HISTORY: RUQ PAIN ORDERING PHYSICIAN: Magali Barksdale MD PATIENT AGE: 32 years COMPARISON: None FINDINGS: Frontal view of the chest shows no acute finding. Upright and supine views of the abdomen demonstrates a nonspecific bowel gas pattern with a mild amount retained colonic feces. No acute bony anomalies or abnormal calcification. IMPRESSION: No acute finding
[2017-07-06] MEDS ORDERED: ZOFRAN ODT4 MG PO (16:46)
[2017-07-06] MEDS ORDERED: BENTYL10 M1 PO (16:46)
[2017-07-06] MEDS ORDERED: ZANTAC 150150 MG PO (16:46)
--- NOTE | 2017-07-06 17:01 | RADIOLOGY REPORT PS360 ---
US GALLBLADDER (ABD LTD) HISTORY: VOMITING AND DIARRHEA ORDERING PHYSICIAN: Magali Barksdale MD PATIENT AGE: 32 years COMPARISON: None FINDINGS: PANCREAS: Unremarkable. No obvious mass or abnormal fluid collection. No ductal dilatation LIVER: No focal liver lesions demonstrated. Homogeneous echogenicity. No intrahepatic biliary ductal dilatation evident RIGHT KIDNEY: Unremarkable. Normal size and echogenicity. No hydronephrosis GALLBLADDER: No gallstones, gallbladder wall thickening, pericholecystic fluid, or biliary dilatation. IMPRESSION: Negative gallbladder/right upper quadrant ultrasound
[2017-07-06 17:07] VITALS: BP 145/82
== END 2017-07-06 17:08 | disposition home or self-care (01) ==
LOC: ER 11:13
PROVIDERS: Emergency Medicine
DX: R10.11 Right upper quadrant pain (principal)
CPT/HCPCS: J2405

== ENCOUNTER 2017-07-16 18:58 | Emergency (ER) | payer MEDICAID ==
[~2017-07-16] VITALS: Ht 154.9 cm; Wt 86.2 kg
[~2017-07-16 18:58] MED LIST changes: +BENTYL10 M1 PO; +ZANTAC 150150 MG PO
--- OUTSIDE RECORDS SUMMARY | 2017-07-16 19:36 | External Medical Summary Rpt | CCD ---
Author Author , UJAN PABLO Organization JUAN PABLO Address Unknown Phone [email or web address] Care Team Providers Care Workers' Compensation Claims Supervisor Name Role Phone A Mia FERRER MD PSC, A Unavailable Unavailable Mia FERRER MD PSC RIVAS TER, EVELYN TER Unavailable Unavailable [place] CAROLINA C[place]AND Unavailable Unavailable [place]INA LCEVELAND FIGUEROA [place] Unavailable Unavailable [place] LEIA BONDS, Unavailable Unavailable LEIA BONDS DUANE YULISA, Unavailable Unavailable DUANE YULISA JOSE C BARBIE, JOSE C Unavailable Unavailable [facility] Unavailable [facility]available [facility], Unavailable [facility]available [facility] FIELD AMB, FIELD AMB Unavailable Unavailable FIELD AM[facility], FIELD AMB Unavailable Unavailable ALIS BARBIE, ALIS Unavailable Unavailable BARBIE DOBSON, DOBSON Unavailable Unavailable [facility] Unavailable Unavailable [facility], [facility] TOSHA BEAN MD, Unavailable Unavailable TOSHA BEAN MD HARPEL ZULEMA, HARPEL Unavailable Unavailable ZULEMA HARPEL ZULEMA, HARPEL Unavailable Unavailable ZULEMA [facility] Un[facility] Un[facility], [facility], Unavailable Unavailable [facility] ROD AUD, ROD AUD Unavailable Unavailable [facility] KILPELA JEA, KILPELA Unavailable Unavailable BHAVESH Schwab MD, Unavailable Unavailable Cherie Strange MD, Unavailable Unavailable CAMRYN Muñoz MD Unavailable Unavailable CAMRYN COWAN Unavailable Unavailable CAMRYN GRE, Unavailable Unavailable CAMRYN COWAN GRE, Unavailable Unavailable CAMRYN GRE URBANO, URBANO Unavailable Unavailable URBANO TRUDY, URBANO TRUDY Unavailable Unavailable URBANO TRUDY, URBANO TRUDY Unavailable Unavailable [facility], [facility], [facility] RENUSCH, RENUSCH Unavailable Unavailable [facility] Unavailable Unavailable [id number] [address] [id number], [facility] [id number] [address] [id number] ARCHIE WILL Unavailable Unavailable JERALD Parker Unavailable Unavailable Lex REDDY MD, III, MD, WRIGHT Unavailable Unavailable Purpose Continuity of Care Document - 07-13-2013 through 2016 Problems Code Diagnosis DOS Provider Status R140 ABDOMINAL 06-02-2017 A Mia FERRER DISTENSION PSC GASEOUS R51 HEADACHE 06-02-2017 A Mia FERRER MD PSC R601 GENERALIZED 06-02-2017 A Mia FERRER EDEMA PSC H1045 OTHER 05-31-2017 [place] CHRONIC ALLERGIC CONJUNCTIVI TIS [id number] MIGRAINE 04-12-2017 A Mia FERRER UNS NOT [facility] INTRACT W/O STATUS MIGRAINOSUS R300 DYSURIA 04-12-2017 A Mia FERRER MD [facility] Z8669 PERSONAL 04-12-2017 A Mia FERRER HISTORY OTH [facility] DISEASES NS & SENSE ORGANS [id number] MIGRAINE 03-29-2017 [facility] NOT INTRACT [facility] W/STAT MIGRAINOSUS Z720 TOBACCO USE 03-29-2017 [facility] D47331 MIGRAINE 03-15-2017 A Mia FERRER W/O AURA [facility] NOT INTRACT W/O STAT MIGRAIN R5382 CHRONIC 03-15-2017 A Mia FERRER FATIGUE [facility] UNSPECIFIED [id number] CONCUSSION 02-13-2017 A Mia FERRER WITHOUT LOC PSC INITIAL ENCOUNTER X936PPP STRAIN 12-09-2016 [facility] NECK LEVL INIT ENC N390 URINARY 09-14-2016 A Mia FERRER TRACT [facility] INFECTION SITE NOT SPECIFIED [id number] SPRAIN UNS 06-01-2016 [place] FIGUER[facility] LIGAMENT LEFT ANKLE INITIAL ENCOUNTER J40 BRONCHITIS 02-21-2016 [facility] NOT PHYSICIANS SPECIFIED GROUP ACUTE OR CHRONIC J329 CHRONIC 02-05-2016 [facility] SINUSITIS PHYSICIANS UNSPECIFIED GROUP J0190 ACUTE 01-07-2016 [facility] SINUSITIS PHYSICIANS UNSPECIFIED GROUP R05 COUGH 01-07-2016 [facility] B86 SCABIES 11-17-2015 [place] FIGUEROA J0191 ACUTE 09-24-2015 [facility] RECURRENT PHYSICIANS SINUSITIS GROUP UNSPECIFIED J209 ACUTE 09-24-2015 [facility] BRONCHITIS PHYSICIANS UNSPECIFIED GROUP J42 UNSPECIFIED 09-04-2015 [facility]ON[facility] R5383 OTHER 09-04-2015 [facility] 3671 MYOPIA 04-28-2015 CAM[facility] GRE 7840 HEADACHE 04-27-2015 [place] FIGUEROA 490 BRONCHITIS 03-10-2015 [facility] ACUTE OR CHRONIC 49079 CONTACT 03-10-2015 [facility] DERMATITIS& PHYSICIANS, OTHER PLLC ECZEMA DUE TO SUNBURN 4779 ALLERGIC 01-15-2015 [place] FIG[facility] RHINITIS CAUSE UNSPECIFIED 1121 CANDIDIASIS 01-09-2015 TOSHA Melendez OF [facility] 7231 CERVICALGIA 01-09-2015 [facility] 7242 LUMBAGO 01-09-2015 [facility] 7245 UNSPECIFIED 01-09-2015 [facility] 23080 OTHER 01-09-2015 [facility] FAT[facility] 2724 OTHER AND 12-12-2014 [facility] HYPERLIPIDE LYNETTE 4011 ESSENTIAL 12-12-2014 [facility], BENIGN INC 00592 INSOMNIA 12-12-2014 [facility] 62086 OBESITY, 12-02-2014 A Mia FERRER UNSPECIFIED PSC 7831 ABNORMAL 12-02-2014 A Mia FERRER WEIGHT GAIN [facility] V8536 BODY MASS 12-02-2014 A Mia FERRER INDEX PSC 36.0-36.9 ADULT 3530 BRACHIAL 11-21-2014 [facility]LEX[facility] LESIONS [facility] 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-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 7246 DISORDERS 11-21-2014 [facility] 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 [facility] 7391 NONALLOPATH 11-21-2014 CA[facility]LLA IC LESION FAMILY OF CERVICAL CHIROPRACT REGION NEC 7392 NONALLOPATH 11-21-2014 CA[facility]LLA IC LESION FAMILY OF THORACIC [facility]IROPRACT REGION NEC 7393 NONALLOPATH 11-21-2014 CA[facility]LLA IC LESION FAMILY OF LUMBAR CHIROPRACT REGION NEC 7394 NONALLOPATH 11-21-2014 CA[facility]LLA IC LESION FAMILY OF SACRAL CHIROPRACT REGION NEC 4660 ACUTE 11-06-2014 A Mia FERRER BRONCHITIS [facility] V1582 PERS HX 11-06-2014 A Mia FERRER TOBACCO USE [facility] PRESENTING [facility] 6116 GALACTORRHE 09-30-2014 TOSHA BEAN MD ASSOCIATED WITH [facility] V259 UNSPECIFIED 09-30-2014 TOSHA BEAN MD CONTRACEPTI VE MANAGEMENT V7231 ROUTINE 09-30-2014 TOSHA Melendez GYNECOLOGIC [facility] MOS[facility] AL EXAMINATION V154 PERS HX 06-25-2014 [facility] TRAUMA PRS [facility] 0549 HERPES 06-24-2014 A Mia MUÑOZ MD PSC WITHOUT MENTION OF COMPLICATIO N 6262 EXCESSIVE 06-24-2014 A Mia FERRER OR ARPIT MOSQU[facility]A PSC MENSTRUATIO N V2502 GENERAL 02-20-2014 HARPEL ZULEMA CNSL INITIATION OTH CONTRACEPT MEASURES V2509 OTH GENERAL 02-20-2014 HARPEL ZULEMA CNSL&ADVICE CONTRACEPT MANAGEMENT V2542 SURVEILLANC 02-11-2014 HARPEL ZULEMA E PREV PRSC INTRAUTERN CNTRACPT DEVC 24287 UNSPECIFIED 01-30-2014 URBANO TRUDY ACUTE CONJUNCTIVI TIS 4659 ACUTE URIS 01-30-2014 URBANO TRUDY OF UNSPECIFIED SITE 35479 FEVER 11-22-2013 FIELD AMB UNSPECIFIED 305.00 305.00 10-09-2013 Cameron ALCOHOL [facility] C 915.0 915.0 10-09-2013 [facility] ABRASION [facility] V720 EXAMINATION 10-08-2013 CAMRYN OF EYES GRE AND VISION 466.0 466.0 ACUTE 08-15-2013 Cameron BRONCHITIS [facility] 493.90 493.90 08-15-2013 Cameron ASTHMA, [facility] 883.0 883.0 OPEN 07-13-2013 Cameron WOUND OF [facility] E849.0 E849.0 07-13-2013 [facility] ACCIDENT IN [facility] E920.3 E920.3 07-13-2013 Cameron KNIFE/SWORD [facility] Allergies, Adverse Reactions, Alerts Type Allergy to [...] ia de te s n re d RO 43 09 10 30 30 00 RI Ac PI 54 -1 -1 .0 00 TE ti NI 70 4- 3- 00 01 ve RO 26 20 20 19 AI LE 81 17 17 96 D 0 23 PH HC AR L MA 0. CY 25 #3 MG 93 8 TA BL ET TO 69 09 10 60 30 00 RI Ac PI 09 -2 -1 .0 00 TE ti RA 70 0- 3- 00 01 ve MA 12 20 20 20 AI TE 20 17 17 04 D 3 40 PH 25 AR MA MG CY TA #3 BL 93 ET 8 HY 00 09 10 [address] 18 -2 -1 0. 00 TE ti OX 50 0- 3- 00 01 ve YZ 61 20 20 0 20 AI IN 50 17 17 04 D E 1 42 PH PA AR M MA 50 CY MG #3 93 CA 8 P RI 69 09 10 6. 6 00 RI Ac ZA 09 -2 -1 00 00 TE ti TR 70 0- 3- 0 01 ve IP 86 20 20 20 AI TA 68 17 17 04 D N 5 37 PH 10 AR MA MG CY TA #3 BL 93 ET 8 OM 60 09 10 30 30 00 WA Ac EP 50 -0 -0 .0 00 L- ti RA 53 8- 6- 00 07 MA ve ZO 95 20 20 50 RT LE 20 17 [address] AR MA 20 CY MG #5 91 CA PS UL E AC 31 09 10 60 30 00 RI Ac YC 72 -1 -0 .0 00 TE ti LO 20 2- 6- 00 01 ve 77 20 20 19 AI R 70 17 17 93 D 40 1 77 PH 0 AR MG MA CY TA BL #3 ET 93 8 HEAD 16 07 08 6. 3 00 RI Ac MA 71 -1 -1 00 00 TE ti TR 40 9- 1- 0 01 ve IP 53 20 20 19 AI TA 21 17 17 23 D N 1 57 PH HEAD AR CC MA CY 50 #3 MG 93 8 TA BL ET SC 65 07 07 14 3 00 RI Ac OM 16 -0 -2 .0 00 TE ti ET 20 5- 8- 00 01 ve BAINS 52 20 20 19 AI ZI 11 17 17 04 D NE 0 77 PH AR 25 MA CY MG #3 TA 93 BL 8 ET HEAD 55 07 07 9. 25 00 RI Ac MA 11 -0 -2 00 00 TE ti TR 10 5- 8- 0 01 ve IP 29 20 20 19 AI TA 10 17 17 04 D N 9 78 PH HEAD AR CC MA CY 25 #3 MG 93 8 TA BL ET VR 61 05 06 30 30 00 [...] 10 #3 MG 93 8 TA B SC 00 05 06 60 30 00 RI [...] #3 CR 93 8 10 0 MG BU 60 05 06 60 30 00 RI Ac SC 50 -1 -0 .0 00 TE ti OP 50 6- 9- 00 01 ve IO 15 20 20 18 AI N 70 17 17 40 D HC 1 49 PH L AR 10 MA 0 CY MG #3 TA 93 BL 8 ET HY 00 05 06 [address] 18 -1 -0 .0 00 TE ti OX 50 5- 9- 00 01 ve YZ 61 20 20 18 AI IN 50 17 17 40 D E 1 48 PH PA AR M MA 50 CY MG #3 93 CA 8 P HY 00 04 05 90 30 00 [...] 04 05 60 30 00 RI Ac SC 78 -1 -1 .0 00 TE ti OP 11 7- 2- 00 01 ve IO 06 20 20 18 AI N 40 17 17 02 D HC 1 34 PH L AR 10 MA 0 CY MG #3 TA 93 BL 8 ET NA 68 04 05 60 30 00 RI Ac SC 46 -0 -0 .0 00 TE ti OX 20 7- 5- 00 01 ve EN 19 20 20 14 AI 00 17 17 60 D 50 1 08 PH 0 AR MG MA CY TA BL #3 ET 93 8 IB 67 04 05 30 7 00 RI Ac UP 87 -0 -0 .0 00 TE ti RO 70 8- 5- 00 01 ve FE 32 20 20 17 AI N 10 17 17 90 D 80 5 37 PH 0 AR MG MA CY TA BL #3 ET 93 8 HY 00 03 04 90 30 00 [...] #3 MG 93 8 TA BL ET SC 00 03 04 10 2 00 RI [...] 10 #3 MG 93 8 TA B SC 00 03 04 60 30 00 RI [...] 03 04 60 30 00 RI Ac SC 50 -1 -0 .0 00 TE ti OP 50 5- 7- 00 01 ve IO 15 20 20 17 AI N 80 17 17 53 D HC 1 95 PH L AR 75 MA CY MG #3 TA 93 BL 8 ET NA 68 02 03 60 30 00 RI Ac SC 46 -2 -2 .0 00 TE ti [...] 01 02 30 30 00 RI Ac SC 37 -2 -1 .0 00 TE ti OP 00 0- 7- 00 01 ve IO 10 20 20 14 AI N 10 17 17 78 D HC 3 57 PH L AR XL MA CY 15 0 #3 MG 93 8 TA BL ET NA 68 01 02 60 30 00 RI Ac SC 46 -2 -1 .0 00 TE ti [...] 12 01 60 30 00 RI Ac SC 46 -0 -0 .0 00 TE ti [...] 12 01 30 30 00 RI Ac SC 37 -0 -0 .0 00 TE ti OP 00 9- 9- 00 01 ve IO 10 20 20 14 AI N 10 16 17 78 D HC 3 57 PH L AR XL MA CY 15 0 #3 MG 93 8 TA BL ET NA 68 08 10 5 60 30 RI 11 BR Ac SC 46 -2 -2 0. TE 46 OD ti OX 20 5- 6- 00 00 SK ve EN 19 20 20 0 AI 8 Y 00 16 16 D KE 50 1 PH NN 0 AR ET MG MA H CY M TA BL 03 ET 93 8 # 03 93 BU 10 09 10 5 30 30 RI 11 BR Ac SC 37 -0 -2 0. TE 47 OD [...] Order Detail nces retati t Range on Antibiotic sensitivity studies (07-10-2017 10:09) Tobramy <= 1 complet tyler 017 ug/ml ed suscept 10:09 ibility test by minimum inhibit ory concent ration Trimeth = 80 complet oprim/s 017 ug/ml ed ulfamet 10:09 hoxazol e suscept ibility test by minimum inhibit ory concent ration Ampicil 2 >= 32 complet nury/sul 017 ug/ml ed bactam 10:09 suscept ibility test by minimum inhibit ory concent ration Levoflo 07-10-2 = 0.25 complet xacin 017 ug/ml ed suscept 10:09 ibility test by minimum inhibit ory concent ration Imipene 2 = 1 complet m 017 ug/ml ed suscept 10:09 ibility test by minimum inhibit ory concent ration Gentami 2 <= 1 complet tyler 017 ug/ml ed suscept 10:09 ibility test by minimum inhibit ory concent ration Nitrofu 2 >= 512 complet rantoin 017 ug/ml ed 10:09 suscept ibility test by minimum inhibit ory concent ration Cefepim 2 = 2 complet e 017 ug/ml ed suscept 10:09 ibility test by minimum inhibit ory concent ration Cefazol >= 64 complet in 017 ug/ml ed suscept 10:09 ibility test by minimum inhibit ory concent ration Ceftria 2 >= 64 complet xone 017 ug/ml ed suscept 10:09 ibility test by minimum inhibit ory concent ration Ceftazi 2 = 4 complet dime/po 017 ug/ml ed tassium 10:09 clavula hector suscept ibility test by minimum inhibit ory concent ration Amoxici >= 32 complet llin/cl 017 ug/ml ed avulana 10:09 te suscept ibility test by minimum inhibit ory concent ration Ampicil 2 >= 32 complet nury 017 ug/ml ed suscept 10:09 ibility test by minimum inhibit ory concent ration Piperac 16-2 = 8 complet illin/t 017 ug/ml ed azobact 10:09 am suscept ibility test by minimum inhibit ory concent ration Serum or plasma troponin i.cardiac measu (07-06-2017 12:40) Serum < 0.02 0.00-0. complet or 017 ng/mL 06 ed plasma 12:40 troponi n i.cardi ac measu THYROID PANEL 2 (07-06-2017 12:40) Serum 2 = 0.59 0.358-3 complet or 017 uIU/ml .740 ed plasma 12:40 thyroid stimula ting horm Thyroxi = 8.7 4.7-13. complet ne 017 ug/dl 3 ed 12:40 T3 = 35 % 31-39 complet uptake 017 ed 12:40 Serum = 7.6 5.93-13 complet or 017 ug/dl .13 ed plasma 12:40 thyroxi ne (T4) free inde CBC w auto diff (07-06-2017 12:40) Blood = 13.8 4.8-10. complet leukocy 017 K/MM3 8 ed nakul 12:40 count (number /volume ) Automat = 12.6 11.5-17 complet ed 017 % .5 ed erythro 12:40 cyte distrib ution width Red = 4.66 4.2-5.4 complet blood 017 M/mm3 ed cell 12:40 count Blood = 287 142-424 complet platele 017 K/mm3 ed t count 12:40 Automat = 7.8 7.4-10. complet ed 017 fl 4 ed blood 12:40 platele t mean volume martha Roane % = 3.7 % 1.7-9.3 complet 017 ed 12:40 Absolut = 0.5 0.1-1.0 complet e 017 K/mm3 ed monocyt 12:40 e count Automat = 92.3 82.2-97 complet ed 017 fl .8 ed erythro 12:40 cyte mean corpusc ular v Automat = 33.0 31.8-35 complet ed 017 g/dl .4 ed erythro 12:40 cyte mean corpusc ular h Mean = 30.5 27-31.2 complet corpusc 017 pg ed ular 12:40 hemoglo bin (MCH) determ Lymphoc = 20.6 10-50.0 complet yte 017 % ed count, 12:40 blood, automat ed Absolut = 2.8 0.7-4.5 complet e 017 K/mm3 ed lymphoc 12:40 yte count Blood = 14.3 12.2-16 complet hemoglo 017 g/dL .2 ed bin 12:40 measure ment (mass/v olum Blood = 43.0 37.0-47 complet hematoc 017 % .0 ed rit 12:40 (volume fractio n) Granulo = 73.8 37.0-80 complet cyte 017 % .0 ed percent 12:40 age Blood = 10.2 1.8-7.8 complet granulo 017 K/mm3 ed cytes 12:40 automat ed count (numb Automat = 1.5 % 0.1-12. complet ed 017 0 ed blood 12:40 eosinop hils/10 0 leukocy t Automat = 0.2 0.0-0.4 complet ed 017 K/mm3 ed blood 12:40 eosinop hil count Baso % = 0.4 % 0.1-2.0 complet 017 ed 12:40 Automat = 0.1 0-0.2 complet ed 017 K/MM3 ed blood 12:40 basophi l count (count/ vo Lipase measurement (07-06-2017 12:40) Lipase = 127 73-393 complet measure 017 U/L ed ment 12:40 Comprehensive metabolic panel (07-06-2017 12:40) Protein = 7.2 6.4-8.2 complet total 017 gm/dL ed ser/francisco 12:40 s ALT = 13 12-78 complet (SGPT) 017 U/L ed ser/francisco 12:40 s Serum = 9 U/L 15-37 complet or 017 ed plasma 12:40 asparta te aminotr ansfera Serum = 142 136-145 complet sodium 017 mmoL/L ed measure 12:40 ment Serum = 3.5 3.5-5.1 complet potassi 017 mmoL/L ed um 12:40 measure ment Serum = 83 74-106 complet or 017 mg/dL ed plasma 12:40 glucose measure ment (mas Serum = 3.4 1.3-3.2 complet globuli 017 gm/dL ed n 12:40 measure ment (mass/v olume) Estimat = 98 59- complet ed 017 ML/MIN ed glomeru 12:40 lar filtrat ion rate (GF Comment: REFERENCE RANGE: >60 ML/MIN/1.73 SQUARE METERS Comment: If this patient is -Slovenian, then multiply the Comment: result by 1.210. Estimat = 157 50-200 complet ion of 017 ML/MIN ed creatin 12:40 ine renal clearan ce Serum = 0.7 0.55-1. complet or 017 mg/dL 02 ed plasma 12:40 creatin ine measure ment ( Carbon = 29 21.0-32 complet dioxide 017 mmoL/L .0 ed 12:40 measure ment Serum = 108 98-107 complet or 017 mmoL/L ed plasma 12:40 chlorid e measure ment (mo Serum = 8.8 8.5-10. complet or 017 mg/dL 1 ed plasma 12:40 calcium measure ment (mas Serum = 5 7-18 complet or 017 mg/dL ed plasma 12:40 urea nitroge n measure men Serum = 0.2 0.2-1.0 complet or 017 mg/dL ed plasma 12:40 total bilirub in measure m Serum = 72 46-116 complet or 017 U/L ed plasma 12:40 alkalin e phospha tase martha Serum = 3.8 3.4-5.0 complet or 017 gm/dL ed plasma 12:40 albumin measure ment (mas Serum = 1.1 1.1-1.8 complet or 017 ed plasma 12:40 albumin /globul in mass ra Amylase ser/plas (07-06-2017 12:40) Amylase = 39 25-115 complet 017 U/L ed ser/francisco 12:40 s Urine culture (07-06-2017 11:55) Urine 10-12-2 [id number] complet culture 017 4 ed 11:55 Pseudom onas aerugin philip SCT PSAE PSEUDOM ONAS AERUGIN PHILIP L Urinalysis with microscopy (07-06-2017 11:55) Urine = OCC O complet leukocy 017 wbc/hpf ed nakul 11:55 count (number /volume ) Urine 0.2 0.2 NEG complet urobili 017 L ed nogen 11:55 E.U./dL detecti on by test str [place] OCC OCC 0-5 complet s 017 L ed epithel 11:55 #/hpf ial cells detecti on in u Urine < = 1.005-1 complet specifi 017 1.005 .030 ed c 11:55 gravity measure ment Erythro NONE 0 complet cytes 017 NONE L ed detecti 11:55 rbc/hpf on in urine sedimen t Urine = NEG complet protein 017 NEGATIV ed 11:55 E mg/dL measure ment by automat ed t Urine = 6.5 5.0-8.5 complet pH 017 ed 11:55 Urine NEGATIV NEG complet nitrite 017 E ed 11:55 NEGATIV detecti E L on by test strip Mucus 2+ 2+ L OCC complet detecti 017 ed on in 11:55 urine sedimen t by lig Mucus NEGATIV NEG complet detecti 017 E ed on in 11:55 NEGATIV urine E L sedimen t by lig Urine NEGATIV NEG complet ketones 017 E ed 11:55 NEGATIV detecti E L on by mg/dL automat ed nakul Glucose = NEG complet ur 017 NEGATIV ed test 11:55 E strip Urine YELLOW YELLOW complet color 017 YELLOW ed 11:55 L Urine NEGATIV NEG complet blood 017 E ed detecti 11:55 NEGATIV on E L Urine NEGATIV NEG complet total 017 E ed bilirub 11:55 NEGATIV in E L detecti on by test Bacteri 2+ 2+ L O complet a 017 ed detecti 11:55 on in urine sedimen t by Urine CLEAR CLEAR complet appeara 017 CLEAR L ed nce 11:55 determi nation Urine test (07-06-2017 11:55) Urine = NEG complet pregnan 017 NEGATIV ed cy test 11:55 E B-HCG Ur Ql (08-15-2013 04:05) B-HCG NEGATIV [...] M. complet OR 013 RHOADES ed 16:30 VICE PRESIDENT NETWORK DEVELOPMENT ETHNICI WHITE, complet TY 013 NON-HIS ed 16:30 PANIC KIT complet EXPIRAT 013 014 ed ION 16:30 DATE SYMPTOM NO complet S 013 ed 16:30 REASON REVISIT complet FOR 013 /ANNUAL ed REQUEST 16:30 FAMILY PLANNIN G VISIT SPECIME FEMALE complet N 013 ENDOCER ed SOURCE 16:30 VICAL PREGNAN NO complet T 013 ed 16:30 CHART M. complet NUMBER 013 RHOADES ed 16:30 VICE PRESIDENT NETWORK DEVELOPMENT Chlamyd Pending complet ia 013 ed trachom 16:30 atis rRNA [Presen ce] in Unspeci fied specime n by Probe & target amplifi cation method Neisser Pending complet ia 013 ed gonorrh 16:30 oeae rRNA [Presen ce] in Unspeci fied specime n by Probe & target amplifi cation method Procedures Procedure DOS Code Location Performer Comment COLLECTIO 66787 Karma DOBSON N VENOUS 7 CARISSA MOSQUERA BLOOD PSC VENIPUNCT URE URINLS 35398 A C FERRER DIP 7 CARISSA MOSQUERA STICK/TAB PSC LET REAGNT NON-AUTO MICRSCPY UNCLASSIF J3490 [facility] IED DRUGS [facility] INC INC THERAPEUT 56477 [facility] IC 7 [facility] PROPHYLAC INC INC TIC/DX INJECTION SUBQ/IM URINLS 90558 A C URBANO DIP 7 CARISSA MOSQUERA STICK/TAB [place] [address] [facility] HEAD/BRAI 7 [facility] N W/O INC INC CONTRAST MATERIAL UNCLASSIF J3490 [facility] IED DRUGS 7 [place] [address] [facility] CERVICAL 7 [facility] SPINE W/O INC INC CONTRAST MATERIAL UNCLASSIF J3490 [facility] DRUGS [facility] INC INC THERAPEUT 11709 [facility] IC 7 [facility] PROPHYLAC INC INC TIC/DX INJECTION SUBQ/IM URINE 35336 [facility] TEST [place] [address] [facility] HEAD/BRAI 7 [facility] N W/O INC INC CONTRAST MATERIAL URNLS DIP 05164 [facility] 7 [facility] STICK/TAB INC INC LET REAGENT AUTO MICROSCOP Y URINLS 64183 A C FERRER DIP 6 CARISSA MOSQUERA STICK/TAB PSC LET REAGNT NON-AUTO MICRSCPY INJECTION J1885 [facility] LEIA 6 PHYSICIAN BONDS KETOROLAC S GROUP TROMETHAM INE PER 15 MG THERAPEUT 57235 [facility] LEIA IC 6 PHYSICIAN BONDS PROPHYLAC S GROUP TIC/DX INJECTION SUBQ/IM INJECTION J1885 [facility] JOSE C 6 PHYSICIAN BARBIE KETOROLAC S GROUP TROMETHAM INE PER 15 MG THERAPEUT 60992 [facility] JOSE C IC 6 PHYSICIAN BARBIE PROPHYLAC S GROUP TIC/DX INJECTION SUBQ/IM INJECTION J1040 [facility] JOSE C 6 PHYSICIAN BARBIE METHYLPRE S GROUP DNISOLONE ACETATE 80 MG INJECTION J1040 [facility] RIVAS TER 6 PHYSICIAN METHYLPRE S GROUP DNISOLONE ACETATE 80 MG THERAPEUT 25404 [facility] RIVAS TER IC 6 PHYSICIAN PROPHYLAC S GROUP TIC/DX INJECTION SUBQ/IM THERAPEUT 75423 [facility] RIVAS TER IC 6 PHYSICIAN PROPHYLAC S GROUP TIC/DX INJECTION SUBQ/IM INJECTION J1885 [facility] RIVAS TER 6 PHYSICIAN KETOROLAC S GROUP TROMETHAM INE PER 15 MG THERAPEUT 46469 [facility] IC 5 PHYSICIAN PHYSICIAN PROPHYLAC S GROUP S GROUP TIC/DX INJECTION SUBQ/IM INJECTION J1040 [facility] RIVAS TER 5 PHYSICIAN METHYLPRE S GROUP DNISOLONE ACETATE 80 MG CYANOCOBA 22292 [facility] JADON 5 [facility] VITAMIN INC INC B-12 IRON 99644 [facility] BINDING 5 [facility] CAPACITY INC INC BLOOD 26334 [facility] COUNT 5 [facility] COMPLETE INC INC AUTO&AUTO DIFRNTL WBC COLLECTIO 69300 [facility] N VENOUS 5 [facility] [place] [address] [facility] FOLIC 5 [facility] [place] [address] [facility] URISA IRON [facility] INC INC OPHTH 19987 [facility] 5 GRE GRE XM&EVAL COMPRHNSV ESTAB PT 1/> RADEX [address]6412 [place] DU[place] SPINE 5 MEDICAL YULISA LUMBOSACR IMAGING AL 2/3 ASS VIEWS COLLECTIO 94233 [place] [facility] N VENOUS 5 [facility] BLOOD INC INC VENIPUNCT URE BLOOD 04121 [place] [facility] COUNT 5 [facility] COMPLETE INC INC AUTO&AUTO DIFRNTL WBC RADEX 03098 [place] [facility] SPINE 5 MEDICAL YULISA CERVICAL IMAGING 2 OR 3 ASS VIEWS SMR PRIM 66776 [facility] SR[facility] WET 5 [facility] NFCT AGT BASIC 60922 [place] [facility] METABOLIC 5 [facility] PANEL INC INC CALCIUM TOTAL BLOOD 34255 [facility] [facility] COUNT 5 [facility] COMPLETE INC INC AUTO&AUTO DIFRNTL WBC LIPID 50619 [facility] [facility] PANEL [facility] INC INC HEPATIC 19358 [facility] [facility] FUNCTION 5 [facility] PANEL INC INC HEMOGLOBI 21307 [facility] [facility] N 5 [facility] GLYCOSYLA INC INC MAXX A1C COLLECTIO 21644 [facility] N VENOUS 5 [facility] [place] [address] [place] THYROID 5 [facility] STIMULATI INC INC NG HORMONE TSH APPL 76067 MAURIZIO ALMANZA MODALITY 5 N FAMILY JERALD 1/> AREAS CHIROPRAC ELEC T STIMJ UNATTENDE D APPL 33542 MAURIZIO ALMANZA MODALITY 5 N FAMILY JERALD 1/> AREAS CHIROPRAC TRACTION T MECHANICA L THERAPEUT 86553 MAURIZIO ALMANZA IC PX 1/> 5 N FAMILY JERALD AREAS CHIROPRAC EACH 15 T MIN EXERCISES CHIROPRAC 79960 MAURIZIO ALMANZA TIC 5 N FAMILY JERALD MANIPULAT CHIROPRAC ROOPA TX T SPINAL 3-4 REGIONS CHIROPRAC 28147 MAURIZIO ALMANZA TIC 5 N FAMILY JREALD MANIPULAT CHIROPRAC ROOPA TX T SPINAL 3-4 REGIONS THERAPEUT 29524 MAURIZIO ALMANZA IC PX 1/> 5 N FAMILY JERALD AREAS CHIROPRAC EACH 15 T MIN EXERCISES APPL 37955 MAURIZIO ARCHIE MODALITY 5 N FAMILY JERALD 1/> AREAS CHIROPRAC TRACTION T MECHANICA L APPL 20702 MAURIZIO ARCHIE MODALITY 5 N FAMILY JERALD 1/> AREAS CHIROPRAC ELEC T STIMJ UNATTENDE D RADEX 75515 MAURIZIO ARCHIE SPINE 5 N FAMILY JERALD LUMBOSACR CHIROPRAC AL 2/3 T VIEWS RADEX 61597 MAURIZIO ARCHIE SPINE 5 N FAMILY JERALD CERVICAL CHIROPRAC 2 OR 3 T VIEWS CULTURE 85806 TOSHA BEAN CHLAMYDIA 5 GENEVA MOSQUERA ZULEMA ANY SOURCE URINLS 20179 TOSHA ALCALAPEL DIP 5 GENEVA MOSQUERA ZULEMA STICK/TAB LET REAGNT NON-AUTO MICRSCPY URINE 59225 TOSHA GIVENS R 5 GENEVA BEAN MD TEST VISUAL COLOR CMPRSN METHS IADNA 59448 TOSHA BEAN NEISSERIA 5 GENEVA MOSQUERA ZULEMA GONORRHOE AE DIRECT PROBE TQ URINE 20376 A C URBANO TRUDY 4 CARISSA MOSQUERA TEST PSC VISUAL COLOR CMPRSN METHS URINE 34965 HARPEL HARPEL 4 ZULEMA ZULEMA TEST VISUAL COLOR CMPRSN METHS ETONOGEST J7307 HARPEL HARPEL REL 4 ZULEMA ZULEMA CNTRACPT IMPL SYS INCL IMPL & SPL INSJ 88464 HARPEL HARPEL NON-BIODE 4 ZULEMA ZULEMA GRADABLE DRUG DELIVERY IMPLANT REMOVAL 17176 HARPEL HARPEL INTRAUTER 4 ZULEMA ZULEMA INE DEVICE IUD IAADIADOO 75243 FIELD AMB FIELD AMB 4 INFLUENZA OPHTH 31021 [facility] GRE XM&EVAL COMPRHNSV ESTAB PT 1/> DETERMINA 34506 [facility] BAIRDALL TION 4 GRE GRE REFRACTIV E STATE Encounters Encounter Start End Date Code Location Performer Type Date OFFICE 79447 Karma HART 7 7 CARISSA MOSQUERA T VISIT PSC 15 MINUTES OFFICE 52969 [facility] HART 7 7 T VISIT 15 MINUTES OFFICE 63603 Karma HART 7 7 CARISSA MOSQUERA T VISIT PSC 15 MINUTES EMERGENCY 09218 [facility] DEPARTMEN INC T VISIT LOW/MODER SEVERITY [facility] OUTPATIEN INC T EMERGENCY 77274 DOROTHY EDEN 7 7 PHYSICIAN DEPARTMEN S, PLLC T VISIT MODERATE SEVERITY OFFICE 49781 Karma Mia FERRER OUTPATIEN 7 7 CARISSA MOSQUERA T VISIT PSC 15 MINUTES OFFICE 68065 Karma CLEMENT OUTPATIEN 7 7 CARISSA MOSQUERA T VISIT PSC 25 MINUTES [facility]OSPITAL [facility] T [facility] OUTPATIEN INC T EMERGENCY 43597 [facility] 7 [facility] DEPARTMEN INC T VISIT LOW/MODER SEVERITY OFFICE 20716 Karma FERRER OUTPATIEN 6 6 CARISSA MOSQUERA T VISIT PSC 15 MINUTES OFFICE 79150 [facility] OUTPATIEN 6 6 [place] T VISIT 15 MINUTES OFFICE 57135 [facility] OUTPATIEN 6 6 [place] CAR[place] T VISIT 15 MINUTES OFFICE 25373 [facility] LEIA OUTPATIEN 6 6 PHYSICIAN BONDS T VISIT S GROUP 15 MINUTES OFFICE 99428 [facility] JOSE C OUTPATIEN 6 6 PHYSICIAN BARBIE T VISIT S GROUP 15 MINUTES OFFICE 03885 [facility] EVELYN TER OUTPATIEN 6 6 PHYSICIAN T VISIT S GROUP 15 MINUTES OFFICE 15848 [facility] OUTPATIEN 6 6 [place] T VISIT 15 MINUTES OFFICE 71644 [facility] EVELYN TER OUTPATIEN 6 6 PHYSICIAN T VISIT S GROUP 15 MINUTES HOSPITAL [facility] OUTPATIEN INC T OFFICE 49687 [facility] ROLDAN OUTPATIEN 5 5 [facility] 15 MINUTES OFFICE 04395 [facility] WOODALL OUTPATIEN 5 5 [facility] 15 MINUTES OFFICE 01261 [facility] OUTPATIEN 5 5 [place] CAR[place]INA T VISIT 15 MINUTES EMERGENCY 51458 ODROTHY STRANGE 5 5 PHYSICIAN BARBIE DEPARTMEN S, PLLC T VISIT HIGH/URGE NT SEVERITY OFFICE 92879 [facility] OUTPATIEN 5 5 [place] FIGUEROA T VISIT 15 MINUTES HOSPITAL [facility] 5 [facility] OUTPATIEN INC T OFFICE 59679 TOSHA BEAN OUTPATIEN 5 5 GENEVA POOLE T VISIT 15 MINUTES HOSPITAL [facility] 5 5 [facility] OUTPATIEN INC T OFFICE 29119 A Mia YATES OUTPATIEN 5 5 CARISSA MOSQUERA T VISIT PSC 15 MINUTES OFFICE 21914 [facility] ARCHIE OUTPATIEN 5 5 N FAMILY JERALD T NEW 20 CHIROPRAC MINUTES T OFFICE 03178 A Mia YATES OUTPATIEN 5 5 CARISSA MOSQUERA T VISIT PSC 15 MINUTES OFFICE 51260 A Mia LEWIS OUTPATIEN 5 5 CARISSA OSPINA T VISIT PSC 15 MINUTES PERIODIC 54434 TOSHA BEAN PREVENTIV 5 5 GENEVA POOLE E MED EST PATIENT 18-39 YRS OFFICE 04759 A Mia CLEMENT TRUDY OUTPATIEN 4 4 CARISSA MOSQUERA T VISIT PSC 15 MINUTES OFFICE 39713 A Mia YATES OUTPATIEN 4 4 CARISSA MOSQUERA T VISIT PSC 15 MINUTES OFFICE 90679 HARPEL HARPEL OUTPATIEN 4 4 ZULEMA POOLE T VISIT 10 MINUTES OFFICE 69523 HARPEL HARPEL OUTPATIEN 4 4 ZULEMA ZULEMA T VISIT 25 MINUTES OFFICE 40379 URBANO KOENIGES TRUDY OUTPATIEN 4 4 T VISIT 15 MINUTES OFFICE 97680 FIELD AMB FIELD AMB OUTPATIEN 4 4 T VISIT 15 MINUTES OFFICE 87511 URBANO YATES OUTPATIEN 4 4 T VISIT 10 MINUTES Emergency PREETI Schwab MD (ER) 4 17:31 4 17:47 [facility] Emergency PREETI Strange MD (ER) 3 03:28 3 05:12 [facility] Emergency PREETI Parker (ER) 3 15:59 3 18:37 [facility] [place]
--- OUTSIDE RECORDS SUMMARY | 2017-07-16 19:36 | External Medical Summary Rpt | CCD ---
Author Author , JUAN PABLO Organization JUAN PABLO Address Unknown Phone [email or web address] Care Team Providers Care Ambulance Officer Name Role Phone A Mia FERRER MD PSC, A Unavailable Unavailable Mia FERRER MD PSC RIVAS TER, EVELYN TER Unavailable Unavailable [place]INA CLEVELAND Unavailable Unavailable [place] C[place]AND FIGUEROA [place] Unavailable Unavailable [place] LEIA BONDS, [...] Unavailable Unavailable BARBIE DOBSON, DOBSON Unavailable Unavailable [place] [facility] Unavailable Unavailable [facility] [place] TOSHA BEAN MD, Unavailable Unavailable TOSHA BEAN MD HARPEL ZULEMA, HARPEL Unavailable Unavailable ZULEMA HARPEL ZULEMA, HARPEL Unavailable Unavailable ZULE[facility] Un[facility] Un[facility], [facility], Unavailable Unavailable [facility] ROD AUD, ROD AUD Unavailable Unavailable [facility] KILPELA JEA, KILPELA Unavailable [...] Unavailable Unavailable [facility] Unavailable Unavailable [id number] # [id number], [facility] [id number] # [id number] ARCHIE WILL Unavailable Unavailable JERALD Parker Unavailable Unavailable Lex REDDY MD, III, MD, WRIGHT Unavailable Unavailable Purpose Continuity of Care Document - 07-13-2013 through 2016 Problems Code Diagnosis DOS Provider Status R140 ABDOMINAL 06-02-2017 A Mia FERRER DISTENSION PSC GASEOUS R51 HEADACHE 06-02-2017 A Mia FERRER MD PSC R601 GENERALIZED 06-02-2017 A Mia FERRER EDEMA PSC H1045 OTHER 05-31-2017 [place] CHRONIC ALLERGIC CONJUNCTIVI TIS P65978 MIGRAINE 04-12-2017 A Mia FERRER UNS NOT [facility] INTRACT W/O STATUS MIGRAINOSUS R300 DYSURIA 04-12-2017 A Mia FERRER MD [facility] Z8669 PERSONAL 04-12-2017 A Mia FERRER HISTORY OTH [facility] DISEASES NS & SENSE ORGANS O38016 MIGRAINE 03-29-2017 [facility] W/O [facility], NOT INTRACT PLLC W/STAT MIGRAINOSUS Z720 TOBACCO USE 03-29-2017 [facility] [id number] MIGRAINE 03-15-2017 A Mia FERRER W/O AURA [facility] NOT INTRACT W/O STAT MIGRAIN R5382 CHRONIC 03-15-2017 A Mia FERRER FATIGUE [facility] UNSPECIFIED [id number] CONCUSSION 02-13-2017 A Mia FERRER WITHOUT LOC PSC INITIAL ENCOUNTER G449NTA STRAIN 12-09-2016 [facility] NECK LEVL INIT ENC N390 URINARY 09-14-2016 A Mia FERRER TRACT [facility] INFECTION SITE NOT SPECIFIED [id number] SPRAIN UNS 06-01-2016 [place] [facility] LIGAMENT LEFT ANKLE INITIAL ENCOUNTER J40 BRONCHITIS 02-21-2016 [facility] NOT PHYSICIANS SPECIFIED GROUP ACUTE OR CHRONIC J329 CHRONIC 02-05-2016 [facility] SINUSITIS PHYSICIANS UNSPECIFIED GROUP J0190 ACUTE 01-07-2016 [facility] SINUSITIS PHYSICIANS UNSPECIFIED GROUP R05 COUGH 01-07-2016 [facility] B86 SCABIES 11-17-2015 [place] FIGU[facility]OA J0191 ACUTE 09-24-2015 [facility] RECURRENT PHYSICIANS SINUSITIS GROUP UNSPECIFIED J209 ACUTE 09-24-2015 [facility] BRONCHITIS PHYSICIANS UNSPECIFIED GROUP J42 UNSPECIFIED 09-04-2015 [facility] BRONCHITIS INC R5383 OTHER 09-04-2015 [facility] 3671 MYOPIA 04-28-2015 [facility] GRE 7840 HEADACHE 04-27-2015 [place] FIGUEROA 490 BRONCHITIS 03-10-2015 [facility] PHILLIPS PHYSICIANS, SPECIFIED PLLC ACUTE OR CHRONIC 59484 CONTACT 03-10-2015 [facility] DERMATITIS& PHYSICIANS, OTHER PLLC ECZEMA DUE TO SUNBURN 4779 ALLERGIC 01-15-2015 [place] [facility] RHINITIS CAUSE UNSPECIFIED 1121 CANDIDIASIS 01-09-2015 TOSHA Melendez OF VULVA GENEVA MOSQUERA AND VAGINA 7231 CERVICALGIA 01-09-2015 [facility] 7242 LUMBAGO 01-09-2015 [facility] 7245 UNSPECIFIED 01-09-2015 [facility] 88054 OTHER 01-09-2015 [facility] FATIGUE INC 2724 OTHER AND 12-12-2014 [facility] UNSPECIFIED [facility] INC HYPERLIPIDE LYNETTE 4011 ESSENTIAL 12-12-2014 [facility] HYPERTENSIO [facility] N, BENIGN INC 40921 INSOMNIA 12-12-2014 [facility] UNSPECIFIED [facility] INC 44363 OBESITY, 12-02-2014 A Mia FERRRE UNSPECIFIED PSC 7831 ABNORMAL 12-02-2014 A Mia FERRER WEIGHT GAIN [facility] V8536 BODY MASS 12-02-2014 A Mia FERRER INDEX PSC 36.0-36.9 ADULT 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 [place] 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 CHIROPRACT 7391 NONALLOPATH 11-21-2014 [place] IC LESION FAMILY OF CERVICAL CHIROPRACT REGION NEC 7392 NONALLOPATH 11-21-2014 [place] IC LESION FAMILY OF THORACIC CHIROPRACT REGION NEC 7393 NONALLOPATH 11-21-2014 [place] IC LESION FAMILY OF LUMBAR CHIROPRACT REGION NEC 7394 NONALLOPATH 11-21-2014 [place] IC LESION FAMILY OF SACRAL CHIROPRACT REGION NEC 4660 ACUTE 11-06-2014 A Mia FERRER BRONCHITIS [facility] V1582 PERS HX 11-06-2014 A Mia FERRER TOBACCO USE [facility] PRESENTING [facility] 6116 GALACTORRHE 09-30-2014 TOSHA BEAN [...] ZULEMA E PREV PRSC INTRAUTERN CNTRACPT DEVC 66382 UNSPECIFIED 01-30-2014 URBANO TRUDY ACUTE CONJUNCTIVI TIS 4659 ACUTE URIS 01-30-2014 URBANO TRUDY OF UNSPECIFIED SITE 06890 FEVER 11-22-2013 FIELD AMB UNSPECIFIED 305.00 305.00 10-09-2013 [place] ALCOHOL [facility] C 915.0 915.0 10-09-2013 [facility] ABRASION [facility] V720 EXAMINATION 10-08-2013 [facility] OF EYES GRE AND VISION 466.0 466.0 ACUTE 08-15-2013 [place] BRONCHITIS [facility] 493.90 493.90 08-15-2013 [place] ASTHMA, [facility] 883.0 883.0 OPEN 07-13-2013 [place] WOUND OF [facility] E849.0 E849.0 07-13-2013 [facility] ACCIDENT IN [facility] E920.3 E920.3 07-13-2013 [place] KNIFE/SWORD [facility] Allergies, Adverse Reactions, Alerts Type Allergy [...] #3 MG 93 8 TA BL ET CO 65 07 07 14 3 00 RI [...] 10 #3 MG 93 8 TA B CO 00 05 06 60 30 00 RI [...] 05 06 60 30 00 RI Ac CO 50 -1 -0 .0 00 TE ti [...] 04 05 60 30 00 RI Ac CO 78 -1 -1 .0 00 TE ti OP 11 7- 2- 00 01 ve IO 06 20 20 18 AI N 40 17 17 02 D HC 1 34 PH L AR 10 MA 0 CY MG #3 TA 93 BL 8 ET NA 68 04 05 60 30 00 RI Ac CO 46 -0 -0 .0 00 TE ti [...] #3 MG 93 8 TA BL ET CO 00 03 04 10 2 00 RI [...] 10 #3 MG 93 8 TA B CO 00 03 04 60 30 00 RI [...] 03 04 60 30 00 RI Ac CO 50 -1 -0 .0 00 TE ti OP 50 5- 7- 00 01 ve IO 15 20 20 17 AI N 80 17 17 53 D HC 1 95 PH L AR 75 MA CY MG #3 TA 93 BL 8 ET NA 68 02 03 60 30 00 RI Ac CO 46 -2 -2 .0 00 TE ti [...] 01 02 30 30 00 RI Ac CO 37 -2 -1 .0 00 TE ti OP 00 0- 7- 00 01 ve IO 10 20 20 14 AI N 10 17 17 78 D HC 3 57 PH L AR XL MA CY 15 0 #3 MG 93 8 TA BL ET NA 68 01 02 60 30 00 RI Ac CO 46 -2 -1 .0 00 TE ti [...] 12 01 60 30 00 RI Ac CO 46 -0 -0 .0 00 TE ti [...] 12 01 30 30 00 RI Ac CO 37 -0 -0 .0 00 TE ti OP 00 9- 9- 00 01 ve IO 10 20 20 14 AI N 10 16 17 78 D HC 3 57 PH L AR XL MA CY 15 0 #3 MG 93 8 TA BL ET NA 68 08 10 5 60 30 RI 11 BR Ac CO 46 -2 -2 0. TE 46 OD ti OX 20 5- 6- 00 00 SK ve EN 19 20 20 0 AI 8 Y 00 16 16 D KE 50 1 PH NN 0 AR ET MG MA H CY M TA BL 03 ET 93 8 # 03 93 BU 10 09 10 5 30 30 RI 11 BR Ac CO 37 -0 -2 0. TE 47 OD [...] blood 12:40 platele t mean volume martha Ciales % = 3.7 % 1.7-9.3 complet 017 [...] SQUARE METERS Comment: If this patient is -Chilean, then multiply the Comment: result by 1.210. [...] s Urine culture (07-06-2017 11:55) Urine 10-12-2 [id number] complet culture 017 4 ed 11:55 Pseudom [...] M. complet OR 013 RHOADES ed 16:30 MUSHROOM CULTIVATOR ETHNICI WHITE, complet TY 013 NON-HIS ed 16:30 PANIC KIT complet EXPIRAT 013 014 ed ION 16:30 DATE SYMPTOM NO complet S 013 ed 16:30 REASON REVISIT complet FOR 013 /ANNUAL ed REQUEST 16:30 FAMILY PLANNIN G VISIT SPECIME FEMALE complet N 013 ENDOCER ed SOURCE 16:30 VICAL PREGNAN NO complet T 013 ed 16:30 CHART M. complet NUMBER 013 RHOADES ed 16:30 MUSHROOM CULTIVATOR Chlamyd Pending complet ia 013 ed trachom 16:30 atis rRNA [Presen ce] in Unspeci fied specime n by Probe & target amplifi cation method Neisser Pending complet ia 013 ed gonorrh 16:30 oeae rRNA [Presen ce] in Unspeci fied specime n by Probe & target amplifi cation method Procedures Procedure DOS Code Location Performer Comment COLLECTIO 12459 Karma DOBSON N VENOUS 7 CARISSA MOSQUERA BLOOD PSC VENIPUNCT URE URINLS 65949 A C FERRER DIP 7 CARISSA MOSQUERA STICK/TAB PSC LET REAGNT NON-AUTO MICRSCPY UNCLASSIF J3490 [facility] IED DRUGS 7 [facility] INC INC THERAPEUT 75812 [facility] IC 7 [facility] PROPHYLAC INC INC TIC/DX INJECTION SUBQ/IM URINLS 31700 A C URBANO DIP 7 CARISSA MOSQUERA STICK/TAB [place] [address] [facility] HEAD/BRAI 7 [facility] N W/O INC INC CONTRAST MATERIAL UNCLASSIF J3490 [facility] IED DRUGS 7 [place] [address] [facility] CERVICAL 7 [facility] SPINE W/O INC INC CONTRAST MATERIAL UNCLASSIF J3490 [facility] IED DRUGS 7 [facility] INC INC THERAPEUT 79498 [facility] IC 7 [facility] PROPHYLAC INC INC TIC/DX INJECTION SUBQ/IM URINE 60892 [facility] 7 [facility] TEST INC [place] [address] [facility] HEAD/BRAI 7 [facility] N W/O INC INC CONTRAST MATERIAL URNLS DIP 92522 [facility] 7 [facility] STICK/TAB INC INC LET REAGENT AUTO MICROSCOP Y URINLS 83823 A C FERRER DIP 6 CARISSA MOSQUERA STICK/TAB PSC LET REAGNT NON-AUTO MICRSCPY INJECTION J1885 [facility] LEIA 6 PHYSICIAN BONDS KETOROLAC S GROUP TROMETHAM INE PER 15 MG THERAPEUT 71552 [facility] LEIA IC 6 PHYSICIAN BONDS PROPHYLAC S GROUP TIC/DX INJECTION SUBQ/IM INJECTION J1885 [facility] JOSE C 6 PHYSICIAN BARBIE KETOROLAC S GROUP TROMETHAM INE PER 15 MG THERAPEUT 66176 [facility] JOSE C IC 6 PHYSICIAN BARBIE PROPHYLAC S GROUP TIC/DX INJECTION SUBQ/IM INJECTION J1040 [facility] JOSE C 6 PHYSICIAN BARBIE METHYLPRE S GROUP DNISOLONE ACETATE 80 MG INJECTION J1040 [facility] RIVAS TER 6 PHYSICIAN METHYLPRE S GROUP DNISOLONE ACETATE 80 MG THERAPEUT 93414 [facility] RIVAS TER IC 6 PHYSICIAN PROPHYLAC S GROUP TIC/DX INJECTION SUBQ/IM THERAPEUT 07180 [facility] RIVAS TER IC 6 PHYSICIAN PROPHYLAC S GROUP TIC/DX INJECTION SUBQ/IM INJECTION J1885 [facility] IRVAS TER 6 PHYSICIAN KETOROLAC S GROUP TROMETHAM INE PER 15 MG THERAPEUT 26307 [facility] IC 5 PHYSICIAN PHYSICIAN PROPHYLAC S GROUP S GROUP TIC/DX INJECTION SUBQ/IM INJECTION J1040 [facility] RIVAS TER 5 PHYSICIAN METHYLPRE S GROUP DNISOLONE ACETATE 80 MG CYANOCOBA 14676 [facility] JADON 5 [facility] VITAMIN INC INC B-12 IRON 22835 [facility] BINDING 5 [facility] CAPACITY INC INC BLOOD 53598 [facility] COUNT 5 [facility] COMPLETE INC INC AUTO&AUTO DIFRNTL WBC COLLECTIO 15816 [facility] N VENOUS 5 [facility] [place] [address] [facility] FOLIC 5 [facility] [place] [address] [facility] IRON 5 [facility] INC INC OPHTH 98875 [facility] 5 GRE GRE XM&EVAL COMPRHNSV ESTAB PT 1/> RADEX 02115 [facility] SPINE 5 MEDICAL YULISA LUMBOSACR IMAGING AL 2/3 ASS VIEWS COLLECTIO 71924 [facility] N VENOUS 5 [facility] BLOOD INC INC VENIPUNCT URE BLOOD 96423 [facility] COUNT 5 [facility] COMPLETE INC INC AUTO&AUTO DIFRNTL WBC RADEX 05679 [facility] SPINE 5 MEDICAL YULISA CERVICAL IMAGING 2 OR 3 ASS VIEWS SMR PRIM 91488 TOSHA BEAN SRC WET 5 GENEVA [facility]OO[facility] NFCT AGT BASIC 93981 [facility] METABOLIC 5 [facility] PANEL INC INC CALCIUM TOTAL BLOOD 18622 [facility] COUNT 5 [facility] COMPLETE INC INC AUTO&AUTO DIFRNTL WBC LIPID 17445 [facility] PANEL 5 [facility] INC INC HEPATIC 27395 [facility] FUNCTION 5 [facility] PANEL INC INC HEMOGLOBI 87005 [facility] N 5 [facility] GLYCOSYLA INC INC MAXX A1C COLLECTIO 35761 [facility] N VENOUS 5 [facility] [place] [address] [facility] THYROID 5 [facility] STIMULATI INC INC NG HORMONE TSH APPL 44918 MAURIZIO ALMANZA MODALITY 5 N FAMILY JERALD 1/> AREAS CHIROPRAC ELEC T STIMJ UNATTENDE D APPL 41418 MAURIZIO ALMANZA MODALITY 5 N FAMILY JERALD 1/> AREAS CHIROPRAC TRACTION T MECHANICA L THERAPEUT 63202 MAURIZIO ALMANZA IC PX 1/> 5 N FAMILY JERALD AREAS CHIROPRAC EACH 15 T MIN EXERCISES CHIROPRAC 64158 MAURIZIO ALMANZA TIC 5 N FAMILY JERALD MANIPULAT CHIROPRAC [place] TX T SPINAL 3-4 REGIONS CHIROPRAC 49005 MAURIZIO ALMANZA TIC 5 N FAMILY JERALD MANIPULAT CHIROPRAC [place] TX T SPINAL 3-4 REGIONS THERAPEUT 03683 MAURIZIO ALMANZA IC PX 1/> 5 N FAMILY JERALD AREAS CHIROPRAC EACH 15 T MIN EXERCISES APPL 33758 MAURIZIO ARCHIE MODALITY 5 N FAMILY JERALD 1/> AREAS CHIROPRAC TRACTION T MECHANICA L APPL 31299 MAURIZIO ARCHIE MODALITY 5 N FAMILY JERALD 1/> AREAS CHIROPRAC ELEC T STIMJ UNATTENDE D RADEX 51923 MAURIZIO ARCHIE SPINE 5 N FAMILY JERALD LUMBOSACR CHIROPRAC AL 2/3 T VIEWS RADEX 29799 MAURIZIO ARCHIE SPINE 5 N FAMILY JERALD CERVICAL CHIROPRAC 2 OR 3 T VIEWS CULTURE 01599 TOSHA BEAN CHLAMYDIA 5 GENEVA MOSQUERA ZULEMA ANY SOURCE URINLS 82160 TOSHA [place]CAL[place] DIP 5 GENEVA MOSQUERA ZULEMA STICK/TAB LET REAGNT NON-AUTO MICRSCPY URINE 85405 TOSHA GIVENS R 5 GENEVA BEAN MD TEST VISUAL COLOR CMPRSN METHS IADNA 13469 TOSHA BEAN NEISSERIA 5 GENEVA MOSQUERA ZULEMA GONORRHOE AE DIRECT PROBE TQ URINE 90654 A C URBANO TRUDY 4 CARISSA MOSQUERA TEST PSC VISUAL COLOR CMPRSN METHS URINE 49771 HARPEL HARPEL 4 ZULEMA ZULEMA TEST VISUAL COLOR CMPRSN METHS ETONOGEST J7307 [facility] HARPEL REL 4 ZULEMA ZULEMA CNTRACPT IMPL SYS INCL IMPL & SPL INSJ 17590 HARPEL HARPEL NON-BIODE 4 ZULEMA ZULEMA GRADABLE DRUG DELIVERY IMPLANT REMOVAL 44040 HARPEL HARPEL INTRAUTER 4 ZULEMA ZULEMA INE DEVICE IUD IAADIADOO 23279 FIELD AMB FIELD AMB 4 INFLUENZA OPHTH 51712 [facility] 4 GRE GRE XM&EVAL COMPRHNSV ESTAB PT 1/> DETERMINA 11597 [facility] BAIRDALL TION 4 GRE GRE REFRACTIV E STATE Encounters Encounter Start End Date Code Location Performer Type Date OFFICE 30252 Karma HART 7 7 CARISSA MOSQUERA T VISIT PSC 15 MINUTES OFFICE 39137 [facility] HART 7 7 T VISIT 15 MINUTES OFFICE 76436 Karma HART 7 7 CARISSA MOSQUERA T VISIT PSC 15 MINUTES EMERGENCY 25893 [facility] 7 7 [facility] DEPARTMEN INC T VISIT LOW/MODER SEVERITY [facility]OSPITAL [facility] 7 [facility] OUTPATIEN INC T EMERGENCY 60697 [facility] EDEN 7 7 PHYSICIAN DEPARTMEN S, PLLC T VISIT MODERATE SEVERITY OFFICE 18254 Karma Mia FERRER OUTPATIEN 7 7 CARISSA MOSQUERA T VISIT PSC 15 MINUTES OFFICE 68221 Karma CLEMENT OUTPATIEN 7 7 CARISSA MOSQUERA T VISIT PSC 25 MINUTES HOSPITAL [facility] 7 [facility] OUTPATIEN INC T [facility]OSP[facility] 7 [facility] OUTPATIEN INC T EMERGENCY 52647 [facility] 7 7 [facility] DEPARTMEN INC T VISIT LOW/MODER SEVERITY OFFICE 26234 Karma FERRER OUTPATIEN 6 6 CARISSA MOSQUERA T VISIT PSC 15 MINUTES OFFICE 91701 [facility] OUTPATIEN 6 6 [place] T VISIT 15 MINUTES OFFICE 57092 [facility] OUTPATIEN 6 6 [place] CAR[place] T VISIT 15 MINUTES OFFICE 44841 [facility] LEIA OUTPATIEN 6 6 PHYSICIAN BONDS T VISIT S GROUP 15 MINUTES OFFICE 39050 [facility] JOSE C OUTPATIEN 6 6 PHYSICIAN BARBIE T VISIT S GROUP 15 MINUTES OFFICE 96466 [facility] EVELYN TER OUTPATIEN 6 6 PHYSICIAN T VISIT S GROUP 15 MINUTES OFFICE 36238 [facility] OUT[facility] 6 6 [place] T VISIT 15 MINUTES OFFICE 07392 [facility] EVELYN TER OUTPATIEN 6 6 PHYSICIAN T VISIT S GROUP 15 MINUTES [facility]OSP[facility] - 5 5 [facility] OUT[facility] INC T OFFICE 84278 [facility] 15 MINUTES OFFICE 18419 [facility] WOODALL OUTPATIEN [address] [facility] T VISIT HOSPITAL 15 MINUTES OFFICE 66930 [facility] OUTPATIEN 5 5 [place] T VISIT 15 MINUTES EMERGENCY 98875 DOROTHY STRANGE 5 5 PHYSICIAN BARBIE DEPARTMEN S, PLL[facility] T VISIT HIGH/URGE NT SEVERITY OFFICE 50202 [facility] OUTPATIEN 5 5 [place] FIGUEROA T VISIT 15 MINUTES [facility]OSP[facility] - 5 5 [facility] T OFFICE 86489 TOSHA BEAN OUTPATIEN 5 5 GENEVA POOLE T VISIT 15 MINUTES [facility] - 5 5 [facility] T OFFICE 48939 A Mia YATES OUTPATIEN 5 5 CARISSA MOSQUERA T VISIT PSC 15 MINUTES OFFICE 90723 [facility] OUTPATI[facility] 5 5 N FAMILY JERALD T NEW 20 CHIROPRAC MINUTES T OFFICE 04933 A Mia YATES OUTPATIEN 5 5 CARISSA MOSQUERA T VISIT PSC 15 MINUTES OFFICE 77642 A Mia LEWIS OUTPATIEN 5 5 CARISSA OSPINA T VISIT PSC 15 MINUTES PERIODIC 11563 TOSHA BEAN PREVENTIV 5 5 GENEVA POOLE E MED EST PATIENT 18-39 YRS OFFICE 59987 A Mia CLEMENT TRUDY OUTPATIEN 4 4 CARISSA MOSQUERA T VISIT PSC 15 MINUTES OFFICE 78306 A Mia YATES OUTPATIEN 4 4 CARISSA MOSQUERA T VISIT PSC 15 MINUTES OFFICE 30257 HARPEL HARPEL OUTPATIEN 4 4 ZULEMA POOLE T VISIT 10 MINUTES OFFICE 05682 HARPEL HARPEL OUTPATIEN 4 4 ZULEMA ZULEMA T VISIT 25 MINUTES OFFICE 04063 URBANO KOENIGES TRUDY OUTPATIEN 4 4 T VISIT 15 MINUTES OFFICE 26092 FIELD AMB FIELD AMB OUTPATIEN 4 4 T VISIT 15 MINUTES OFFICE 38867 URBANO YATES OUTPATIEN 4 4 T VISIT 10 MINUTES Emergency PREETI Schwab MD (ER) 4 17:31 4 17:47 [facility] Emergency PREETI Strange MD (ER) 3 03:28 3 05:12 [facility] Emergency PREETI Parker (ER) 3 15:59 3 18:37 [facility] [place]
--- OUTSIDE RECORDS SUMMARY | 2017-07-16 19:39 | External Medical Summary Rpt | CCD ---
Author Author , LADANJOSE C Thor JUAN PABLO Address Unknown Phone [email or web address] Care Team Providers Care Housekeeping/Laundry Name Role Phone A Mia BARRIOS, Karma Unavailable Unavailable Mia FERRER MD [facility] RIVAS TER, RIVAS TER Unavailable Unavailable [place] Unavailable Unavailable [place] FIGUEROA [place] Unavailable [...] Unavailable Unavailable BARBIE DOBSON, DOBSON Unavailable Unavailable [facility] Unavailable Unavailable [facility] TOSHA BEAN MD, Unavailable Unavailable TOSHA BEAN MD HARPEL ZULEMA, HARPEL Unavailable Unavailable ZULEMA HARPEL ZULEMA, HARPEL Unavailable Unavailable [facility] Unavailable Unavailable INC, [facility], Unavailable Unavailable [facility] ROD AUD, ROD AUD Unavailable Unavailable [facility] Unavailable Unavailable [facility], [facility] KILPELA JEA, KILPELA Unavailable Unavailable GILMAA CAMRYN COWAN Unavailable Unavailable CAMRYN COWAN Unavailable Unavailable CAMRYN GRE, Unavailable Unavailable CAMRYN COWAN GRE, Unavailable Unavailable CAMRYN GRE URBANO, URBANO Unavailable Unavailable URBANO TRUDY, URBANO TRUDY Unavailable Unavailable URBANO TRUDY, URBANO TRUDY Unavailable Unavailable [facility], Un[facility], [facility] RENUSCH, RENUSCH Unavailable Unavailable [facility] Unavailable Unavailable [id number] # [id number], [facility] [id number] # [id number] ARCHIE WILL Unavailable Unavailable CARISSA PAZ Unavailable Unavailable Purpose Continuity of Care Document - 10-08-2013 through 2016 Problems Code Diagnosis DOS Provider Status R140 ABDOMINAL 06-02-2017 Karma BARRIENTOS MD PSC GASEOUS R51 HEADACHE 06-02-2017 Karma FERRER MD PSC R601 GENERALIZED 06-02-2017 A Mia FERRER EDEMA PSC H1045 OTHER 05-31-2017 [facility] CHRONIC ALLERGIC CONJUNCTIVI TIS [id number] MIGRAINE 04-12-2017 A Mia FERRER UNS NOT [facility] INTRACT W/O STATUS MIGRAINOSUS R300 DYSURIA 04-12-2017 A Mia FERRER MD PSC Z8669 PERSONAL 04-12-2017 A Mia FERRER HISTORY OTH PSC DISEASES NS & SENSE ORGANS Q15958 MIGRAINE 03-29-2017 [facility] W/[facility] NOT IN[facility]ACT [facility] W/STAT MIGRAINOSUS Z720 TOBACCO USE 03-29-2017 [facility] [id number] MIGRAINE 03-15-2017 A Mia FERRER W/O AURA PSC NOT INTRACT W/O STAT MIGRAIN R5382 CHRONIC 03-15-2017 A Mia FERRER FATIGUE [facility] UNSPECIFIED [id number] CONCUSSION 02-13-2017 A iMa FERRER WITHOUT LOC PSC INITIAL ENCOUNTER [id number] STRAIN 12-09-2016 [facility] NECK LEVL INIT ENC N390 URINARY 09-14-2016 A Mia FERRER TRACT [facility] INFECTION SITE NOT SPECIFIED [id number] SPRAIN UNS 06-01-2016 [facility] LIGAMENT LEFT ANKLE INITIAL ENCOUNTER J40 BRONCHITIS 02-21-2016 [facility] NOT PHYSICIANS SPECIFIED GROUP ACUTE OR CHRONIC J329 CHRONIC 02-05-2016 [facility] SINUSITIS PHYSICIANS UNSPECIFIED GROUP J0190 ACUTE 01-07-2016 [facility] SINUSITIS PHYSICIANS UNSPECIFIED GROUP R05 COUGH 01-07-2016 [facility] B86 SCABIES 11-17-2015 [facility] [facility] J0191 ACUTE 09-24-2015 [facility] RECURRENT PHYSICIANS SINUSITIS GROUP UNSPECIFIED J209 ACUTE 09-24-2015 [facility] BRONCHITIS PHYSICIANS UNSPECIFIED GROUP J42 UNSPECIFIED 09-04-2015 [facility] BRONCH[facility]IS [facility] R5383 OTHER 09-04-2015 [facility] 3671 MYOPIA 04-28-2015 [facility] GRE 7840 HEADACHE 04-27-2015 [place] [facility] 490 BRONCHITIS 03-10-2015 [facility] NOT PHYSICIANS, SPECIFIED PLLC ACUTE OR CHRONIC 74014 CONTACT 03-10-2015 [facility] DERMATITIS& PHYSICIANS, OTHER PLLC ECZEMA DUE TO SUNBURN 4779 ALLERGIC 01-15-2015 [facility] RHINITIS CAUSE UNSPECIFIED 1121 CANDIDIASIS 01-09-2015 TOSHA BEAN MD AND VAGINA 7231 CERVICALGIA 01-09-2015 [facility] 7242 LUMBAGO 01-09-2015 [facility] 7245 UNSPECIFIED 01-09-2015 [facility] 92569 OTHER 01-09-2015 [facility] 2724 OTHER AND 12-12-2014 [facility] HYPERLIPIDE LYNETTE 4011 ESSENTIAL 12-12-2014 [facility], BENIGN INC 97693 INSOMNIA 12-12-2014 [facility] 23200 OBESITY, 12-02-2014 A Mia FERRER UNSPECIFIED PSC 7831 ABNORMAL 12-02-2014 A Mia FERRER WEIGHT GAIN PSC V8536 BODY MASS 12-02-2014 A Mia FERRER INDEX PSC 36.0-36.9 ADULT 3530 BRACHIAL 11-21-2014 [facility] LESIONS CHIROP[facility]CT 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 7391 NONALLOPATH 11-21-2014 [facility] IC LESION FAMILY OF CERVICAL CHIROPRACT REGION NEC 7392 NONALLOPATH 11-21-2014 [facility] IC LESION FAMILY OF THORACIC CHIROPRACT REGION NEC 7393 NONALLOPATH 11-21-2014 [facility] IC LESION FAMILY OF LUMBAR CHIROPRACT REGION NEC 7394 NONALLOPATH 11-21-2014 [facility] IC LESION FAMILY OF SACRAL CHIROPRACT REGION NEC 4660 ACUTE 11-06-2014 A Mia FERRER BRONCHITIS PSC V1582 PERS HX 11-06-2014 A Mia FERRER TOBACCO USE [facility] PRESENTING [facility] 6116 GALACTORRHE 09-30-2014 TOSHA [...] ZULEMA E PREV PRSC INTRAUTERN CNTRACPT DEVC 90260 UNSPECIFIED 01-30-2014 U[facility]O TRUDY ACUTE CONJUNCTIVI TIS 4659 ACUTE URIS 01-30-2014 URBANO TRUDY OF UNSPECIFIED SITE 56489 FEVER 11-22-2013 FIELD AMB UNSPECIFIED V720 EXAMINATION 10-08-2013 SUPERIOR OF EYES GRE AND VISION Medications Na [...] #3 MG 93 8 TA BL ET OH 65 07 07 14 3 00 RI [...] 10 #3 MG 93 8 TA B OH 00 05 06 60 30 00 RI [...] 05 06 60 30 00 RI Ac OH 50 -1 -0 .0 00 TE ti [...] 04 05 60 30 00 RI Ac OH 78 -1 -1 .0 00 TE ti [...] 04 05 60 30 00 RI Ac OH 46 -0 -0 .0 00 TE ti [...] #3 MG 93 8 TA BL ET OH 00 03 04 10 2 00 RI [...] 10 #3 MG 93 8 TA B OH 00 03 04 60 30 00 RI [...] 03 04 60 30 00 RI Ac OH 50 -1 -0 .0 00 TE ti OP 50 5- 7- 00 01 ve IO 15 20 20 17 AI N 80 17 17 53 D HC 1 95 PH L AR 75 MA CY MG #3 TA 93 BL 8 ET NA 68 02 03 60 30 00 RI Ac OH 46 -2 -2 .0 00 TE ti [...] 01 02 30 30 00 RI Ac OH 37 -2 -1 .0 00 TE ti OP 00 0- 7- 00 01 ve IO 10 20 20 14 AI N 10 17 17 78 D HC 3 57 PH L AR XL MA CY 15 0 #3 MG 93 8 TA BL ET NA 68 01 02 60 30 00 RI Ac OH 46 -2 -1 .0 00 TE ti [...] 12 01 60 30 00 RI Ac OH 46 -0 -0 .0 00 TE ti [...] 12 01 30 30 00 RI Ac OH 37 -0 -0 .0 00 TE ti OP 00 9- 9- 00 01 ve IO 10 20 20 14 AI N 10 16 17 78 D HC 3 57 PH L AR XL MA CY 15 0 #3 MG 93 8 TA BL ET NA 68 08 10 5 60 30 RI 11 BR Ac OH 46 -2 -2 0. TE 46 OD ti OX 20 5- 6- 00 00 SK ve EN 19 20 20 0 AI 8 Y 00 16 16 D KE 50 1 PH NN 0 AR ET MG MA H CY M TA BL 03 ET 93 8 # 03 93 BU 10 09 10 5 30 30 RI 11 BR Ac OH 37 -0 -2 0. TE 47 OD ti OP 00 7- 6- 00 85 SK ve IO 10 20 20 0 AI 7 Y N 10 16 16 D KE HC 3 PH NN L AR ET XL MA H CY M 15 0 03 MG 93 8 TA # BL 03 ET 93 Procedures Procedure DOS Code Location Performer Comment COLLECTIO 44276 A C DOBSON N VENOUS 7 CARISSA MOSQUERA BLOOD PSC VENIPUNCT URE URINLS 40220 A C CARISSA DIP 7 CARISSA MOSQUERA STICK/TAB PSC LET REAGNT NON-AUTO MICRSCPY THERAPEUT 93831 [facility] PROPHYLAC INC INC TIC/DX INJECTION SUBQ/IM UNCLASSIF J3490 [facility] IED DRUGS [facility] URINLS 86351 A C URBANO DIP 7 CARISSA MOSQUERA STICK/TAB PSC LET REAGNT NON-AUTO MICRSCPY UNCLASSIF J3490 [facility] IED DRUGS 7 [place] [address] [facility] HEAD/BRAI 7 [facility] N W/[place] [address] [facility] HEAD/BRAI 7 [facility] W/O INC INC CONTRAST MATERIAL URINE 78222 [facility] TEST INC INC VISUAL COLOR CMPRSN METHS UNCLASSIF J3490 [facility] IED DRUGS 7 [facility] INC INC URNLS DIP 83302 [facility] STICK/TAB INC [place] [address] [facility] CERVICAL 7 [facility] SPINE W/O INC INC CONTRAST MATERIAL THERAPEUT 40283 [facility] IC 7 [facility] PROPHYLAC INC INC TIC/DX INJECTION SUBQ/IM URINLS 25985 A C FERRER DIP 6 CARISSA MOSQUERA STICK/TAB PSC LET REAGNT NON-AUTO MICRSCPY THERAPEUT 55549 [facility] IC 6 PHYSICIAN BONDS PROPHYLAC S GROUP TIC/DX INJECTION SUBQ/IM INJECTION J1885 [facility]IA 6 PHYSICIAN BONDS KETOROLAC S GROUP TROMETHAM INE PER 15 MG INJECTION J1885 [facility] CYPRESS 6 PHYSICIAN BARBIE KETOROLAC S GROUP TROMETHAM INE PER 15 MG INJECTION J1040 [facility] CYPRESS 6 PHYSICIAN BARBIE METHYLPRE S GROUP DNISOLONE ACETATE 80 MG THERAPEUT 89483 [facility] JOSE C IC 6 PHYSICIAN BARBIE PROPHYLAC S GROUP TIC/DX INJECTION SUBQ/IM THERAPEUT 76018 [facility] IC 6 PHYSICIAN PROPHYLAC S GROUP TIC/DX INJECTION SUBQ/IM INJECTION J1040 [facility] 6 PHYSICIAN METHYLPRE S GROUP DNISOLONE ACETATE 80 MG INJECTION J1885 [facility] 6 PHYSICIAN KETOROLAC S GROUP TROMETHAM INE PER 15 MG THERAPEUT [address] [facility] [address] IC 6 PHYSICIAN PROPHYLAC S GROUP TIC/DX INJECTION SUBQ/IM THERAPEUT 39533 [facility] IC 5 PHYSICIAN PHYSICIAN PROPHYLAC S GROUP S GROUP TIC/DX INJECTION SUBQ/IM INJECTION J1040 [facility] 5 PHYSICIAN METHYLPRE S GROUP DNISOLONE ACETATE 80 MG IRON 40101 [facility] BINDING 5 [facility] CAPACITY INC INC BLOOD 95968 [facility] COUNT 5 [facility] COMPLETE INC INC AUTO&AUTO DIFRNTL WBC CYANOCOBA 73642 [facility] JADON 5 [facility] VITAMIN [place] B-[address] [place] [address] [facility] FOLIC 5 [facility] [place] [address] [facility] IRON 5 [facility] INC INC COLLECTIO 03765 [facility] N VENOUS 5 [facility] BLOOD INC INC VENIPUNCT URE OPHTH 03646 [facility] 5 GRE GRE XM&EVAL COMPRHNSV ESTAB PT 1/> RADEX 46756 [facility] SPINE 5 [facility] LUMBOSACR INC INC AL 2/3 VIEWS COLLECTIO 51200 [facility] N VENOUS 5 [facility] BLOOD INC INC VENIPUNCT URE BLOOD 89159 [facility] COUNT 5 [facility] COMPLETE INC INC AUTO&AUTO DIFRNTL WBC RADEX 96585 [facility] SPINE 5 [facility] CERVICAL INC INC 2 OR 3 VIEWS SMR PRIM 58836 TOSHA BEAN SRC WET 5 GENEVA MOSQUERA [facility] NFCT AGT HEMOGLOBI 78527 [facility] N 5 [facility] GLYCOSYLA INC INC MAXX A1C BASIC 63993 [facility] METABOLIC 5 [facility] PANEL INC INC CALCIUM TOTAL BLOOD 67921 [facility] COUNT 5 [facility] COMPLETE INC INC AUTO&AUTO DIFRNTL WBC LIPID 51031 [facility] PANEL 5 [facility] INC INC HEPATIC 75632 [facility] FUNCTION 5 [facility] PANEL INC INC COLLECTIO 75510 [facility] N VENOUS 5 [facility] [place] [address] [facility] THYROID 5 [facility] STIMULATI INC INC NG HORMONE TSH THERAPEUT 05792 MAURIZIO ALMANZA IC PX 1/> 5 N FAMILY JERALD AREAS CHIROPRAC EACH 15 T MIN EXERCISES APPL 85713 MAURIZIO ALMANZA MODALITY 5 N FAMILY JERALD 1/> AREAS CHIROPRAC ELEC T STIMJ UNATTENDE D APPL 93377 MAURIZIO ALMANZA MODALITY 5 N FAMILY JERALD 1/> AREAS CHIROPRAC TRACTION T MECHANICA L CHIROPRAC 19380 MAURIZIO ALMANZA TIC 5 N FAMILY JERALD MANIPULAT CHIROPRAC [place] T SPINAL 3-4 REGIONS CHIROPRAC 10988 MAURIZIO ALMANZA TIC 5 N FAMILY JERALD MANIPULAT CHIROPRAC [place] TX T SPINAL 3-4 REGIONS APPL 90365 MAURIZIO ALMANZA MODALITY 5 N FAMILY JERALD 1/> AREAS CHIROPRAC ELEC T STIMJ UNATTENDE D APPL 14576 MAURIZIO ALMANZA MODALITY 5 N FAMILY JERALD 1/> AREAS CHIROPRAC TRACTION T MECHANICA L THERAPEUT 57816 MAURIZIO ALMANZA IC PX 1/> 5 N FAMILY JERALD AREAS CHIROPRAC EACH 15 T MIN EXERCISES RADEX 32093 MAURIZIO ALMANZA SPINE 5 N FAMILY JERALD LUMBOSACR CHIROPRAC AL 2/3 T VIEWS RADEX 60553 MAURIZIO ALMANZA SPINE 5 N FAMILY JERALD CERVICAL CHIROPRAC 2 OR 3 T VIEWS URINE 13886 TOSHA Melendez 5 GENEVA BEAN MD TEST VISUAL COLOR CMPRSN METHS URINLS 70740 TOSHA BEAN DIP 5 GENEVA POOLE STICK/TAB LET REAGNT NON-AUTO MICRSCPY CULTURE 58670 TOSHA BEAN CHLAMYDIA 5 GENEVA MOSQUERA ZULEMA ANY SOURCE IADNA 42357 TOSHA BEAN NEISSERIA 5 GENEVA POOLE GONORRHOE AE DIRECT PROBE TQ URINE 68961 A C URBANO TRUDY 4 CARISSA MOSQUERA TEST PSC VISUAL COLOR CMPRSN METHS URINE 91360 [facility] HARPEL 4 ZULEMA ZULEMA TEST VISUAL COLOR CMPRSN METHS ETONOGEST J7307 [facility] HARPEL REL 4 ZULEMA ZULEMA CNTRACPT IMPL SYS INCL IMPL & SPL INSJ 32660 [facility] HARPEL NON-BIODE 4 ZULEMA ZULEMA GRADABLE DRUG DELIVERY IMPLANT REMOVAL 59604 HAR[facility] HARPEL INTRAUTER 4 ZULEMA ZULEMA INE DEVICE IUD IAADIADOO 65047 FIELD AMB FIELD AMB 4 INFLUENZA OPHTH 40150 [facility] 4 GRE GRE XM&EVAL COMPRHNSV ESTAB PT 1/> DETERMINA 50991 [facility] TION 4 GRE GRE REFRACTIV E STATE Encounters Encounter Start End Date Code Location Performer Type Date OFFICE 56601 A Mia HART 7 7 CARISSA MOSQUERA T VISIT PSC 15 MINUTES OFFICE 65078 [facility] HART 7 7 T VISIT 15 MINUTES OFFICE 22490 A Mia HART 7 7 CARISSA MOSQUERA T VISIT PSC 15 MINUTES EMERGENCY 21255 DOROTHY EDEN 7 7 PHYSICIAN [facility] T VISIT MODERATE SEVERITY EMERGENCY 68015 [facility] 7 7 [facility] DEPARTMEN INC T VISIT LOW/MODER SEVERITY [facility] 7 7 [facility] OUTPATIEN INC T OFFICE 05262 Karma HART 7 7 CARISSA MOSQUERA T VISIT PSC 15 MINUTES OFFICE 84900 Karma HART 7 7 CARISSA MOSQUERA T VISIT PSC 25 MINUTES [facility]OSP[facility] 7 7 [facility] OUTPATIEN INC T [facility]OS[facility] 7 7 [facility] OUTPATIEN INC T EMERGENCY 12462 [facility] 7 7 [facility] DEPARTMEN [facility] T VISIT LOW/MODER SEVERITY OFFICE 51688 Karma HART 6 6 CARISSA MOSQUERA T VISIT PSC 15 MINUTES OFFICE 99655 [facility] OUT[facility] 6 6 [place] T VISIT 15 MINUTES OFFICE 95465 [facility] OUTPATIEN 6 6 [place] T VISIT 15 MINUTES OFFICE 39091 [facility] OUTPATIEN 6 6 PHYSICIAN BONDS T VISIT S GROUP 15 MINUTES OFFICE 27880 [facility] JO[facility] C OUTPATIEN 6 6 PHYSICIAN BARBIE T VISIT S GROUP 15 MINUTES OFFICE [address] [facility] [address] OUTPATIEN 6 6 PHYSICIAN T VISIT S GROUP 15 MINUTES OFFICE 52832 [facility] OUT[facility] 6 6 [place] T VISIT 15 MINUTES OFFICE [address] [facility] [address] [address] OUTPATIEN 6 6 PHYSICIAN T VISIT S GROUP 15 MINUTES [facility] 5 5 [facility] OUTPATIEN [facility] T OFFICE [address] [facility] [address] OUTPATIEN 5 5 [facility] T VISIT HOSPITAL 15 MINUTES OFFICE 00615 [facility] 5 [facility] 15 MINUTES OFFICE 18418 [facility] OUTPATIEN 5 5 [place] T VISIT 15 MINUTES EMERGENCY 41173 DOR[facility]HY SNELL 5 5 PHYSICIAN BARBIE DEPARTMEN S, PLLC T VISIT HIGH/URGE NT SEVERITY OFFICE 60561 [facility] OUTPATIEN 5 5 [place] T VISIT 15 MINUTES [facility] 5 5 [facility] OUTPATIEN INC T OFFICE 36113 TOSHA BEAN OUTPATIEN 5 5 GENEVA MOSQUERA ZULEMA T VISIT 15 MINUTES [facility] - 5 5 [facility] OUTPATIEN INC T OFFICE 34140 A Mia YATES OUTPATIEN 5 5 CARISSA MOSQUERA T VISIT PSC 15 MINUTES OFFICE 31930 MAURIZIO ARCHIE OUTPATIEN 5 5 N FAMILY JERALD T NEW 20 CHIROPRAC MINUTES T OFFICE 03330 A Mia YATES OUTPATIEN 5 5 CARISSA MOSQUERA T VISIT PSC 15 MINUTES OFFICE 80307 A Mia LEWIS OUTPATIEN 5 5 CARISSA MOSQUERA JEKarma T VISIT PSC 15 MINUTES PERIODIC 23948 TOSHA BEAN PREVENTIV 5 5 GENEVA MOSQUERA ZULEMA E MED EST PATIENT 18-39 YRS OFFICE 97712 A Mia YATES OUTPATIEN 4 4 CARISSA MOSQUERA T VISIT PSC 15 MINUTES OFFICE 63064 A Mia YATES OUTPATIEN 4 4 CARISSA MOSQUERA T VISIT PSC 15 MINUTES OFFICE 54147 HARPEL HARPEL OUTPATIEN 4 4 ZULEMA ZULEMA T VISIT 10 MINUTES OFFICE 52413 HARPE[facility] HARPEL OUTPATIEN 4 4 ZULEMA ZULEMA T VISIT 25 MINUTES OFFICE 70445 U[facility]O YATES OUTPATIEN 4 4 T VISIT 15 MINUTES OFFICE 78712 FIELD AMB FIELD AMB OUTPATIEN 4 4 T VISIT 15 MINUTES OFFICE 74903 URBANO YATES OUTPATIEN 4 4 T VISIT 10 MINUTES
--- OUTSIDE RECORDS SUMMARY | 2017-07-16 19:39 | External Medical Summary Rpt | CCD ---
Author Author , LADANJOSE C Thor JUAN PABLO Address Unknown Phone [email or web address] Team Providers Care Nurse Recruiter Name Role Phone A Mia BARRIOS, Karma Unavailable Unavailable Mia FERRER MD [facility] RIVAS TER, RIVAS TER Unavailable Unavailable [...] Unavailable Unavailable BARBIE DOBSON, DOBSON Unavailable Unavailable [facility] Unavailable Unavailable [facility] TOSHA BEAN MD, Unavailable Unavailable TOSHA BEAN MD HARPEL ZULMEA, HARPEL Unavailable Unavailable ZULEMA HARPEL ZULEMA, HARPEL Unavailable Unavailable [facility] Unavailable Unavailable [facility], [facility], Unavailable Unavailable [facility] ROD AUD, ROD AUD Unavailable Unavailable [facility] Unavailable Unavailable [facility], [facility] KILPELA JEA, KILPELA Unavailable Unavailable GILMAA CAMRYN COWAN Unavailable Unavailable CAMRYN COWAN Unavailable Unavailable CAM[facility] GRE, Unavailable Unavailable CAMRYN COWAN GRE, Unavailable Unavailable CAMRYN GRE URBANO, URBANO Unavailable Unavailable URBANO TRUDY, URBANO TRUDY Unavailable Unavailable URBANO TRUDY, URBANO TRUDY Unavailable Unavailable [facility], Un[facility], [facility] RENUSCH, RENUSCH Unavailable Unavailable [facility] Unavailable Unavailable [id number] [address] [id number], [facility] [id number] # [id number] ARCHIE WILL Unavailable Unavailable CARISSA PAZ Unavailable Unavailable Purpose Continuity of Care Document - 10-08-2013 through 2016 Problems Code Diagnosis DOS Provider Status R140 ABDOMINAL 06-02-2017 Karma BARRIENTOS MD PSC GASEOUS R51 HEADACHE 06-02-2017 Karma FERRER MD PSC R601 GENERALIZED 06-02-2017 A Mia FERRER EDEMA PSC H1045 OTHER 05-31-2017 [facility] CHRONIC ALLERGIC CONJUNCTIVI TIS [id number] MIGRAINE 04-12-2017 A Mia FERRER UNS NOT [facility] INTRACT W/O STATUS MIGRAINOSUS R300 DYSURIA 04-12-2017 A Mia FERRER MD PSC Z8669 PERSONAL 04-12-2017 A Mia FERRER HISTORY OTH PSC DISEASES NS & SENSE ORGANS [id number] MIGRAINE 03-29-2017 [facility] IN[facility] W/STAT MIGRAINOSUS Z720 TOBACCO USE 03-29-2017 [facility] [id number] MIGRAINE 03-15-2017 A Mia FERRER W/O [facility]UR[facility] PSC NOT INTRACT W/O STAT MIGRAIN R5382 CHRONIC 03-15-2017 A Mia FERRER FATIGUE [facility] UNSPECIFIED [id number] CONCUSSION 02-13-2017 A Mia FERRER WITHOUT LOC PSC INITIAL ENCOUNTER [id number] STRAIN 12-09-2016 [facility] NECK LEVL INIT ENC N390 URINARY 09-14-2016 A Mia FERRER TRACT [facility] INFECTION SITE NOT SPECIFIED [id number] SPRAIN UNS 06-01-2016 [facility] LIGAMENT LEFT ANKLE INITIAL ENCOUNTER J40 BRONCHITIS 02-21-2016 [facility] NOT PHYSICIANS SPECIFIED GROUP ACUTE OR CHRONIC J329 CHRONIC 02-05-2016 [facility] SINUSITIS PHYSICIANS UNSPECIFIED GROUP J0190 ACUTE 01-07-2016 [facility] SINUSITIS PHYSICIANS UNSPECIFIED GROUP R05 COUGH 01-07-2016 [facility] B86 SCABIES 11-17-2015 [facility] J0191 ACUTE 09-24-2015 [facility] RECURRENT PHYSICIANS SINUSITIS GROUP UNSPECIFIED J209 ACUTE 09-24-2015 [facility] BRONCHITIS PHYSICIANS UNSPECIFIED GROUP J42 UNSPECIFIED 09-04-2015 [facility] BRONCH[facility]IS [facility] R5383 OTHER 09-04-2015 [facility] 3671 MYOPIA 04-28-2015 [facility] GRE 7840 HEADACHE 04-27-2015 [facility] 490 BRONCHITIS 03-10-2015 [facility] NOT PHYSICIANS, SPECIFIED PLLC ACUTE OR CHRONIC 45522 CONTACT 03-10-2015 [facility] DERMATITIS& PHYSICIANS, OTHER PLLC ECZEMA DUE TO SUNBURN 4779 ALLERGIC 01-15-2015 [facility] RHINITIS CAUSE UNSPECIFIED 1121 CANDIDIASIS 01-09-2015 TOSHA BEAN MD AND VAGINA 7231 CERVICALGIA 01-09-2015 [facility] 7242 LUMBAGO 01-09-2015 [facility] 7245 UNSPECIFIED 01-09-2015 [facility] 94340 OTHER 01-09-2015 [facility] FATIGUE [facility] 2724 OTHER AND 12-12-2014 [facility]NSPECIFIED [facility] HYPERLIPIDE LYNETTE 4011 ESSENTIAL 12-12-2014 [facility]O [facility], BENIGN INC 09035 INSOMNIA 12-12-2014 [facility]PEC[facility] 61745 OBESITY, 12-02-2014 A Mia FERRER UNSPECIFIED PSC 7831 ABNORMAL 12-02-2014 A Mia FERRER WEIGHT GAIN PSC V8536 BODY MASS 12-02-2014 A Mia FERRER INDEX PSC 36.0-36.9 ADULT 3530 BRACHIAL 11-21-2014 [facility] LESIONS CHIROPRACT 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 7391 NONALLOPATH 11-21-2014 [facility] IC LESION FAMILY OF CERVICAL CHIROPRACT REGION NEC 7392 NONALLOPATH 11-21-2014 [facility] IC LESION FAMILY OF THORACIC CHIROPRACT REGION NEC 7393 NONALLOPATH 11-21-2014 [facility] IC LESION FAMILY OF LUMBAR CHIROPRACT REGION NEC 7394 NONALLOPATH 11-21-2014 [facility] IC LESION FAMILY OF SACRAL CHIROPRACT REGION NEC 4660 ACUTE 11-06-2014 A Mia FERRER BRONCHITIS PSC V1582 PERS HX 11-06-2014 A Mia FERRER TOBACCO USE [facility] PRESENTING [facility] 6116 GALACTORRHE 09-30-2014 [...] ZULEMA E PREV PRSC INTRAUTERN CNTRACPT DEVC 22793 UNSPECIFIED 01-30-2014 [facility] TRUDY ACUTE CONJUNCTIVI TIS 4659 ACUTE URIS 01-30-2014 URBANO TRUDY OF UNSPECIFIED SITE 09756 FEVER 11-22-2013 FIELD AMB UNSPECIFIED V720 EXAMINATION 10-08-2013 [facility] GRE AND VISION Medications Na [...] #3 MG 93 8 TA BL ET HI 65 07 07 14 3 00 RI [...] 10 #3 MG 93 8 TA B HI 00 05 06 60 30 00 RI [...] 05 06 60 30 00 RI Ac HI 50 -1 -0 .0 00 TE ti [...] 04 05 60 30 00 RI Ac HI 78 -1 -1 .0 00 TE ti [...] 04 05 60 30 00 RI Ac HI 46 -0 -0 .0 00 TE ti [...] #3 MG 93 8 TA BL ET HI 00 03 04 10 2 00 RI [...] 10 #3 MG 93 8 TA B HI 00 03 04 60 30 00 RI [...] 03 04 60 30 00 RI Ac HI 50 -1 -0 .0 00 TE ti OP 50 5- 7- 00 01 ve IO 15 20 20 17 AI N 80 17 17 53 D HC 1 95 PH L AR 75 MA CY MG #3 TA 93 BL 8 ET NA 68 02 03 60 30 00 RI Ac HI 46 -2 -2 .0 00 TE ti [...] 01 02 30 30 00 RI Ac HI 37 -2 -1 .0 00 TE ti OP 00 0- 7- 00 01 ve IO 10 20 20 14 AI N 10 17 17 78 D HC 3 57 PH L AR XL MA CY 15 0 #3 MG 93 8 TA BL ET NA 68 01 02 60 30 00 RI Ac HI 46 -2 -1 .0 00 TE ti [...] 12 01 60 30 00 RI Ac HI 46 -0 -0 .0 00 TE ti [...] 12 01 30 30 00 RI Ac HI 37 -0 -0 .0 00 TE ti OP 00 9- 9- 00 01 ve IO 10 20 20 14 AI N 10 16 17 78 D HC 3 57 PH L AR XL MA CY 15 0 #3 MG 93 8 TA BL ET NA 68 08 10 5 60 30 RI 11 BR Ac HI 46 -2 -2 0. TE 46 OD ti OX 20 5- 6- 00 00 SK ve EN 19 20 20 0 AI 8 Y 00 16 16 D KE 50 1 PH NN 0 AR ET MG MA H CY M TA BL 03 ET 93 8 # 03 93 BU 10 09 10 5 30 30 RI 11 BR Ac HI 37 -0 -2 0. TE 47 OD ti OP 00 7- 6- 00 85 SK ve IO 10 20 20 0 AI 7 Y N 10 16 16 D KE HC 3 PH NN L AR ET XL MA H CY M 15 0 03 MG 93 8 TA # BL 03 ET 93 Procedures Procedure DOS Code Location Performer Comment COLLECTIO 17876 A C DOBSON N VENOUS 7 CARISSA MOSQUERA BLOOD PSC VENIPUNCT URE URINLS 35603 A C CARISSA DIP 7 CARISSA MOSQUERA STICK/TAB PSC LET REAGNT NON-AUTO MICRSCPY THERAPEUT 49938 [facility] IC [facility] PROPHYLAC INC INC TIC/DX INJECTION SUBQ/IM UNCLASSIF J3490 [facility] IED DRUGS 7 [facility] INC INC URINLS 17968 A C URBANO DIP 7 CARISSA MOSQUERA STICK/TAB PSC LET REAGNT NON-AUTO MICRSCPY UNCLASSIF J3490 [facility] IED DRUGS 7 [place] [address] [facility] HEAD/BRAI 7 [facility] N W/[place] [address] [facility] URAIS HEAD/BRAI 7 [facility] N W/O INC INC CONTRAST MATERIAL URINE 70727 [facility] 7 [facility] TEST INC INC VISUAL COLOR CMPRSN METHS UNCLASSIF J3490 [facility] IED DRUGS 7 [facility] INC INC URNLS DIP 24583 [facility] 7 [facility] STICK/TAB INC [place] [address] [facility] CERVICAL 7 [facility] SPINE W/O INC INC CONTRAST MATERIAL THERAPEUT 16412 [facility] IC 7 [facility] PROPHYLAC INC INC TIC/DX INJECTION SUBQ/IM URINLS 99993 A C FERRER DIP 6 CARISSA MOSQUERA STICK/TAB PSC LET REAGNT NON-AUTO MICRSCPY THERAPEUT 72534 [facility] LEIA IC 6 PHYSICIAN BONDS PROPHYLAC S GROUP TIC/DX INJECTION SUBQ/IM INJECTION J1885 [facility] LEIA 6 PHYSICIAN BONDS KETOROLAC S GROUP TROMETHAM INE PER 15 MG INJECTION J1885 [facility] 6 PHYSICIAN BARBIE KETOROLAC S GROUP TROMETHAM INE PER 15 MG INJECTION J1040 [facility] 6 PHYSICIAN BARBIE METHYLPRE S GROUP DNISOLONE ACETATE 80 MG THERAPEUT 48483 [facility] JOSE C IC 6 PHYSICIAN BARBIE PROPHYLAC S GROUP TIC/DX INJECTION SUBQ/IM THERAPEUT 42801 [facility] IC 6 PHYSICIAN PROPHYLAC S GROUP TIC/DX INJECTION SUBQ/IM INJECTION J1040 [facility] 6 PHYSICIAN METHYLPRE S GROUP DNISOLONE ACETATE 80 MG INJECTION J1885 [facility] 6 PHYSICIAN KETOROLAC S GROUP TROMETHAM INE PER 15 MG THERAPEUT 69531 [facility] IC 6 PHYSICIAN PROPHYLAC S GROUP TIC/DX INJECTION SUBQ/IM THERAPEUT 98762 [facility] IC 5 PHYSICIAN PHYSICIAN PROPHYLAC S GROUP S GROUP TIC/DX INJECTION SUBQ/IM INJECTION J1040 [facility] 5 PHYSICIAN METHYLPRE S GROUP DNISOLONE ACETATE 80 MG IRON 42295 [facility] BINDING 5 [facility] CAPACITY INC INC BLOOD 53480 [facility] COUNT 5 [facility] COMPLETE INC INC AUTO&AUTO DIFRNTL WBC CYANOCOBA 56258 [facility] JADON 5 [facility] VITAMIN INC INC B-[address] [place] [address] [facility] FOLIC 5 [facility] [place] [address] [facility] IRON 5 [facility] INC INC COLLECTIO 68738 [facility] N VENOUS 5 [facility] BLOOD INC INC VENIPUNCT URE OPHTH 29254 [facility] 5 GRE GRE XM&EVAL COMPRHNSV ESTAB PT 1/> RADEX 90929 [facility] SPINE 5 [facility] LUMBOSACR INC INC AL 2/3 VIEWS COLLECTIO 52673 [facility] N VENOUS 5 [facility] BLOOD INC INC VENIPUNCT URE BLOOD 68189 [facility] COUNT 5 [facility] COMPLETE INC INC AUTO&AUTO DIFRNTL WBC RADEX 49371 [facility] SPINE 5 [facility] CERVICAL INC INC 2 OR 3 VIEWS SMR PRIM 47508 TOSHA BEAN SRC WET 5 GENEVA MOSQUERA [facility] NFCT AGT HEMOGLOBI 70572 [facility] N 5 [facility] GLYCOSYLA INC INC MAXX A1C BASIC 24840 [facility] METABOLIC 5 [facility] PANEL INC INC CALCIUM TOTAL BLOOD 22339 [facility] COUNT 5 [facility] COMPLETE INC INC AUTO&AUTO DIFRNTL WBC LIPID 50955 [facility] PANEL 5 [facility] INC INC HEPATIC 55538 [facility] FUNCTION 5 [facility] PANEL INC INC COLLECTIO 56863 [facility] N VENOUS 5 [facility] [place] [address] [facility] THYROID 5 MEM HOS[facility]OS[facility] STIMULATI INC INC NG HORMONE TSH THERAPEUT 08891 MAURIZIO ALMANZA IC PX 1/> 5 N FAMILY JEARLD AREAS CHIROPRAC EACH 15 T MIN EXERCISES APPL 31028 MAURIZIO ALMANZA MODALITY 5 N FAMILY JERALD 1/> AREAS CHIROPRAC ELEC T STIMJ UNATTENDE D APPL 16942 MAURIZIO ALMANZA MODALITY 5 N FAMILY JERALD 1/> AREAS CHIROPRAC TRACTION T MECHANICA L CHIROPRAC 89612 MAURIZIO ALMANZA TIC 5 N FAMILY JERALD MANIPULAT CHIROPRAC [place] T SPINAL 3-4 REGIONS CHIROPRAC 33858 MAURIZIO ALMANZA TIC 5 N FAMILY JERALD MANIPULAT CHIROPRAC [place] T SPINAL 3-4 REGIONS APPL 27123 MAURIZIO ALMANZA MODALITY 5 N FAMILY JERALD 1/> AREAS CHIROPRAC ELEC T STIMJ UNATTENDE D APPL 55706 MAURIZIO ALMANZA MODALITY 5 N FAMILY JERALD 1/> AREAS CHIROPRAC TRACTION T MECHANICA L THERAPEUT 44863 MAURIZIO ALMANZA IC PX 1/> 5 N FAMILY JERALD AREAS CHIROPRAC EACH 15 T MIN EXERCISES RADEX 80370 MAURIZIO ALMANZA SPINE 5 N FAMILY JERALD LUMBOSACR CHIROPRAC AL 2/3 T VIEWS RADEX 68085 MAURIZIO ALMANZA SPINE 5 N FAMILY JERALD CERVICAL CHIROPRAC 2 OR 3 T VIEWS URINE 49896 TOSHA Melendez 5 GENEVA BEAN MD TEST VISUAL COLOR CMPRSN METHS URINLS 74653 TSOHA BEAN DIP 5 GENEVA POOLE STICK/TAB LET REAGNT NON-AUTO MICRSCPY CULTURE 98745 TOSHA BEAN CHLAMYDIA 5 GENEVA MOSQUERA ZULEMA ANY SOURCE IADNA 48967 TOSHA BEAN NEISSERIA 5 GENEVA POOLE GONORRHOE AE DIRECT PROBE TQ URINE 90508 A C URBANO TRUDY 4 CARISSA MOSQUERA TEST PSC VISUAL COLOR CMPRSN METHS URINE 92302 [facility] HARPEL 4 ZULEMA ZULEMA TEST VISUAL COLOR CMPRSN METHS ETONOGEST J7307 [facility] HARPEL REL 4 ZULEMA ZULEMA CNTRACPT IMPL SYS INCL IMPL & SPL INSJ 87864 [facility] HARPEL NON-BIODE 4 ZULEMA ZULEMA GRADABLE DRUG DELIVERY IMPLANT REMOVAL 03040 [facility] HARPEL INTRAUTER 4 ZULEMA ZULEMA INE DEVICE IUD IAADIADOO 63993 FIELD AMB FIELD AMB 4 INFLUENZA OPHTH 12741 [facility] 4 GRE GRE XM&EVAL COMPRHNSV ESTAB PT 1/> DETERMINA 46346 [facility] TION 4 GRE GRE REFRACTIV E STATE Encounters Encounter Start End Date Code Location Performer Type Date OFFICE 59815 A Mia HART 7 7 CARISSA MOSQUERA T VISIT PSC 15 MINUTES OFFICE 33592 [facility] HART 7 7 T VISIT 15 MINUTES OFFICE 66261 A Mia HART 7 7 CARISSA MOSQUERA T VISIT PSC 15 MINUTES EMERGENCY 39317 [facility] EDEN 7 7 PHYSICIAN [facility] T VISIT MODERATE SEVERITY EMERGENCY 49802 [facility] 7 7 [facility] DEPARTMEN INC T VISIT LOW/MODER SEVERITY [facility] 7 7 [facility] OUTPATIEN INC T OFFICE 39267 Karma HART 7 7 CARISSA MOSQUERA T VISIT PSC 15 MINUTES OFFICE 44965 Karma HART 7 7 CARISSA MOSQUERA T VISIT PSC 25 MINUTES [facility]OSPITAL [facility] - 7 7 [facility] OUTPATIEN INC T HOSP[facility] 7 7 [facility] OUTPATIEN INC T EMERGENCY 01679 [facility] 7 7 [facility] DEPARTMEN [facility] T VISIT LOW/MODER SEVERITY OFFICE 05832 Karma HART 6 6 CARISSA MOSQUERA T VISIT PSC 15 MINUTES OFFICE 25306 [facility] OUT[facility] 6 6 [place] T VISIT 15 MINUTES OFFICE 18550 [facility] OUT[facility]IEN 6 6 [place] T VISIT 15 MINUTES OFFICE 95966 [facility]IA OUTPATIEN 6 6 PHYSICIAN BONDS T VISIT S GROUP 15 MINUTES OFFICE 27800 [facility] JOSE C OUTPATIEN 6 6 PHYSICIAN BARBIE T VISIT S GROUP 15 MINUTES OFFICE 88069 [facility] OUTPATIEN 6 6 PHYSICIAN T VISIT S GROUP 15 MINUTES OFFICE 01590 [facility] OUT[facility]EN 6 6 [place] T VISIT 15 MINUTES OFFICE 36661 [facility] [address] OUTPATIEN 6 6 PHYSICIAN T VISIT S GROUP 15 MINUTES [facility]OSPITAL [facility] - 5 5 [facility] OUTPATIEN INC T OFFICE [address] OUTPATIEN 5 5 [facility] V[facility] 15 MINUTES OFFICE 63468 [facility] OUTPATIEN 5 5 [facility] T VISIT [facility] 15 MINUTES OFFICE 05834 [facility] OUTPATIEN 5 5 [place] [place] T VISIT 15 MINUTES EMERGENCY 85866 [facility] SNELL 5 5 PHYSICIAN BARBIE DEPARTMEN S, PLLC T VISIT HIGH/URGE NT SEVERITY OFFICE 77577 [facility] OUTPATIEN 5 5 [place] T VISIT 15 MINUTES [facility]OSP[facility] - 5 5 [facility] OUTPATIEN INC T OFFICE 47617 TOSHA BEAN OUTPATIEN 5 5 GENEVA MOSQUERA ZULEMA T VISIT 15 MINUTES HOSPITAL [facility] - 5 5 [facility] OUTPATIEN INC T OFFICE 30344 A Mia YATES OUTPATIEN 5 5 CARISSA MOSQUERA T VISIT PSC 15 MINUTES OFFICE 15766 MAURIZIO ARCHIE OUTPATIEN 5 5 N FAMILY JERALD T NEW 20 CHIROPRAC MINUTES T OFFICE 24302 A Mia YATES OUTPATIEN 5 5 CARISSA MOSQUERA T VISIT PSC 15 MINUTES OFFICE 67451 A Mia LEWIS OUTPATIEN 5 5 CARISSA MOSQUERA JEKarma T VISIT PSC 15 MINUTES PERIODIC 50622 TOSHA BEAN PREVENTIV 5 5 GENEVA MOSQUERA ZULEMA E MED EST PATIENT 18-39 YRS OFFICE 19311 A Mia YATES OUTPATIEN 4 4 CARISSA MOSQUERA T VISIT PSC 15 MINUTES OFFICE 10989 A Mia YATES OUTPATIEN 4 4 CARISSA MOSQUERA T VISIT PSC 15 MINUTES OFFICE 42556 [facility] HARPEL OUTPATIEN 4 4 ZULEMA ZULEMA T VISIT 10 MINUTES OFFICE 77931 [facility] HARPEL OUTPATIEN 4 4 ZULEMA ZULEMA T VISIT 25 MINUTES OFFICE 41683 U[facility]O YATES OUTPATIEN 4 4 T VISIT 15 MINUTES OFFICE 02985 FIELD AMB FIELD AMB OUTPATIEN 4 4 T VISIT 15 MINUTES OFFICE 21013 URBANO YATES OUTPATIEN 4 4 T VISIT 10 MINUTES
--- OUTSIDE RECORDS SUMMARY | 2017-07-16 19:40 | External Medical Summary Rpt | CCD ---
Demographics Preferred Language Kinyarwanda Marital Status Unknown Hinduism Affiliation Unknown Race Unknown Ethnic Group Unknown Author Author , JUAN PABLO ALMEIDA Address Unknown Phone juan Immunization Unable to retrieve immunization data due to connection failure with Immunization Registry. Please try again later.
--- OUTSIDE RECORDS SUMMARY | 2017-07-16 19:40 | External Medical Summary Rpt | CCD ---
Demographics Preferred Language Lithuanian Marital Status Unknown Christian Affiliation Unknown Race Unknown Ethnic Group Unknown Author Author , JUAN PABLO ALMEIDA Address Unknown Phone juan Immunization Unable to retrieve immunization data due to connection failure with Immunization Registry. Please try again later.
[2017-07-16 20:08] LABS: HEMOGLOBIN 13.9 g/dL (12.2-16.2); LYMPH # 3.6 K/mm3 (0.7-4.5); LYMPH % 32.1 % (10-50.0)
[2017-07-16 20:08] LABS: URINE BLOOD NEGATIVE (NEG)
[2017-07-16 20:13] LABS: URINE BILIRUBIN - DIPSTICK NEGATIVE (NEG)
[2017-07-16 20:21] LABS: BILIRUBIN, INDIRECT 0.08 mg/dL (0-0.9)
--- NOTE | 2017-07-16 20:31 | Emergency Room Report ---
History of Present Illness Time Seen by MD 2028 Presenting Problem in Triage Pt arrived:Walked Presenting Problem:MID ABDOMINAL CRAMPING, EXTREME NAUSEA, H/O MIGRAINES, EXTREME CONFUSION, NAUSEA AND DIZZINESS. PT STATES SHE SAW HER PCP LAST MONDAY AND HAD GALL BLADDER US, WAS TOLD IF SXS WORSEN TO COME TO ED. 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 N Clinical Suspician of Infection? N Mental Status: 1 - Regular (Normal Baseline) Sepsis Risk:Possible Sepsis Risk Have you (or family members/close friends) recently traveled outside the [place]? N If Yes, where/when: Have you had exposure to infectious disease within the past month? N TB? Other? Specify: Source patient, RN notes reviewed, RN/MD Exam Limitations no limitations Comment This is a 32-year-old female patient arriving to the emergency room with a variety of symptoms including mid abdominal pain/cramping, headache, allegedly confused, nausea and dizziness. While in [facility]pc she has developed abdominal pain in mid April which persisted on off-and-on basis till present time, with associated nausea but no vomiting or diarrhea. She had a gallbladder ultrasound through her doctor's office which was normal. She has a CT scan abdomen and pelvis plus a HIDA scan scheduled for next week. ALLERGIES Coded Allergies: No Known Allergies (12/09/16) Home Medications Active Scripts Sumatriptan Succinate (Imitrex 25MG Tablet) 25 MG PO ONCE #10 TAB Prov: 03/29/17 PROMETHAZINE HCL (Phenergan 25MG Tab (Geq)) 25 MG PO Q6HP PRN N/V #14 TAB Prov: 03/29/17 Ranitidine Hcl (Zantac) 150 MG PO BID #30 TAB Ref 1 Prov: 07/06/17 Ondansetron (Zofran 4MG Odt) 4 MG PO Q6HP PRN NAUSEA AND VOMITING #12 ODT Prov: 07/06/17 DICYCLOMINE HCL (Bentyl) 10 MG PO Q8 #21 CAP Ref 1 Prov: 07/06/17 Reported Medications Hydroxyzine Pamoate (Vistaril) 25 MG PO PRN PRN ANXIETY History Medical History General CAD? No Angina: No LA: No Hypertension? No Hyperlipidemia? No CHF? No DVT? No PE? No COPD? No Asthma? No Anemia? No GERD? No Gastric ulcers? No GI Bleed? No Hernia? No Thyroid Problems? No Hypothyroidism? No CVA? No Seizures? No Diabetes? No Renal Insuffiency? No End Stage Renal Disease? No UTI? No Stones? No BPH? No GB Disease: No Nephritic Syndrome? No Asplenia? No Hepatitis? No Sickle Cell Disease? No Arthritis? No Migraines? Yes Cataracts? No Glaucoma? No MRSA? No HIV? No TB? No Anxiety? No Depression? Yes Cancer? No More? 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 [employer] Hx LMP 5 Months Ago Family History Family Hx Diabetes No CAD No Hypertension Yes Hyperlipidemia Yes Cancer No TB No Social History Smoking Hx Smoker: Current Every Day Smoker Tobacco: Yes Type Cigarettes Packs/day 1 1/2 - 2 Packs Alcohol Alcohol: No Review of Systems All Other Systems Reviewed and Negative Gastrointestinal abdominal pain, denies constipation, denies diarrhea, nausea, denies vomiting Physical Exam Vital Signs Vital Signs Date Time Temp Pulse Resp B/P Pulse O2 O2 Flow FiO2 Ox Delivery Rate 07/16 2305 80 22 110/63 99 07/160 98.6 80 22 110/63 99 07/16 2024 98.5 80 20 106/55 100 07/16 2003 20 07/16 1906 98.6 98 20 109/54 96 General Appearance normal appearance, WD/WN, no apparent distress Respiratory Status Yes: trachea midline, chest symmetrical, non tender chest. No: respiratory distress. Lung Sounds bilateral: normal breath sounds, lungs clear. 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 No Comment 2229-upon reevaluation patient appears medically stable, with no acute complaint , advised of results obtained as well as need for her to keep her next week appointment for a HIDA scan. If any worse patient was instructed to return promptly to the same emergency room for reevaluation. Results/Orders Laboratory Tests 07/16/171944: Lactic Acid 1.2 07/16/171944: Sodium 144, Potassium 3.1 L, Chloride 107, Carbon Dioxide 27, BUN 11, Creatinine 0.8, Estimated Creat Clear 140, Estimated GFR (MDRD) 84, Glucose 63 L, Calcium 8.4 L, Total Bilirubin 0.1 L, Direct Bilirubin 0.02, Indirect Bilirubin 0.08, AST 11 L, ALT 11 L, Alkaline Phosphatase 67, Total Protein 7.3 , Albumin 3.9, Globulin 3.4 H, Albumin/Globulin Ratio 1.1, Amylase 39, Lipase 153, WBC 11.2 H, RBC 4.57, Hgb 13.9, Hct 43.1, MCV 94.2, RDW 13.3, Plt Count 324, MPV 7.2 L, Gran % 59.8, Gran # 6.7, Lymphocytes % 32.1, Monocytes % 5.2, Eosinophils % 2.3, Basophils % 0.6, Lymphocytes # 3.6, Monocytes # 0.6, Eosinophils # 0.3, Basophils # 0.1, PUBS MCHC 32.4, MCH 30.5 07/16/171929: Opiates Screen POSITIVE H, Urine Methadone Screen NEGATIVE, Barbiturates NEGATIVE, Phencyclidine Screen NEGATIVE, Amphetamines Screen NEGATIVE, Benzodiazepines Screen NEGATIVE, Cocaine Screen NEGATIVE, Marijuana (THC) Screen NEGATIVE, Urine Color YELLOW, Urine Appearance CLEAR, Urine pH 6.0, Ur Specific [place] >= 1.030, Urine Protein 1+ H, Urine Ketones TRACE H, Urine Blood NEGATIVE, Urine Nitrate NEGATIVE, Urine Bilirubin NEGATIVE, Urine Urobilinogen 0.2, Ur Leukocyte Esterase NEGATIVE, Urine RBC RARE, Urine WBC OCC, Ur Squamous Epith Cells 3-5, Amorphous Sediment TRACE, Urine Mucus 1+, Urine Glucose NEGATIVE Orders Procedure Date/time Status DIET-NOTHING BY MOUTH 07/17 B Active DRUG ABUSE SCREEN (10) 07/[address] ABD/PELVIS REQ 07/16 1931 Complete IV SALINE LOCK 07/16 1931 Active CULTURE, BLOOD 07/16 1931 Active URINALYSIS/COMPLETE 07/16 1931 Complete SERUM , QUAL 07/16 1931 Complete LIVER PROFILE 07/16 1931 Complete LIPASE 07/16 1931 Complete LACTIC ACID 07/16 1931 Complete CBC WITH AUTO DIFF 07/16 1931 Complete CHEM 12 PROFILE 07/16 1931 Complete AMYLASE 07/16 1931 Complete XRAY/CT/US XRAY/CT/US CT abdomen, pelvis (with oral and IV contrast) CT interpretation by discussed w/radiologist CT Results normal/NAD Departure Departure Time of Disposition 2242 Disposition DC Home or Self Care(routine) Clinical Impression Primary Impression: Abdominal pain Qualifiers: Abdominal location: unspecified location Qualified Code: R10.9 - Unspecified abdominal pain Secondary Impressions: Hypokalemia, Pseudomonas urinary tract infection Condition STABLE Referrals Angely MOSQUERA,Mehdi ROUSE,MONROE Tomas MD, Susannah Piedra (Family) HUAN ESPAÑA MD Patient Instructions DI for Abdominal Pain-Adult, DI for Hypokalemia, DI for Urinary Tract Infection (UTI) Additional Instructions Please follow-up with one of the gastrointestinal specialists (see above) or alternatively, with one of the general surgeons (see above) within the next 2-3 days. You're need additional outpatient workup, please continue same medications as previosuly prescribed. Please take the pain meds as precribed. Discharge Counseling Counseled pt/family regarding diagnosis, test results, medications/RX, home care, follow up needs Comment Please follow-up with one of the gastrointestinal specialists (see above) or alternatively, with one of the general surgeons (see above) within the next 2-3 days. You're need additional outpatient workup, please continue same medications as previosuly prescribed. Please take the pain meds as precribed. Prescriptions Current Visit Scripts Etodolac 200 MG PO QIDP PRN pain #6 CAP Ciprofloxacin HCl (Cipro 500MG TAB) 500 MG PO BID #20 TAB ED Critical Care Critical Care No at 1015 Clinical Impression Primary Impression: Abdominal pain Qualifiers: Abdominal location: unspecified location Qualified Code: R10.9 - Unspecified abdominal pain Secondary Impressions: Hypokalemia, Pseudomonas urinary tract infection Condition STABLE Referrals Angely MOSQUERA,Mehdi ROUSE,OMNROE Tomas MD, Susannah Piedra (Family) HUAN EPSAÑA MD Patient Instructions DI for Abdominal Pain-Adult, DI for Hypokalemia, DI for Urinary Tract Infection (UTI) Additional Instructions Please follow-up with one of the gastrointestinal specialists (see above) or alternatively, with one of the general surgeons (see above) within the next 2-3 days. You're need additional outpatient workup, please continue same medications as previosuly prescribed. Please take the pain meds as precribed. Discharge Counseling Counseled pt/family regarding diagnosis, test results, medications/RX, home care, follow up needs Comment Please follow-up with one of the gastrointestinal specialists (see above) or alternatively, with one of the general surgeons (see above) within the next 2-3 days. You're need additional outpatient workup, please continue same medications as previosuly prescribed. Please take the pain meds as precribed. Prescriptions Current Visit Scripts Etodolac 200 MG PO QIDP PRN pain #6 CAP Ciprofloxacin HCl (Cipro 500MG TAB) 500 MG PO BID #20 TAB ED Critical Care Critical Care No
[2017-07-16] MEDS ORDERED: ETODOLAC200 MG PO (22:47)
[2017-07-16] MEDS ORDERED: CIPRO 500MG TA500 MG PO (22:55)
[2017-07-16 23:05] VITALS: BP 110/63
[2017-07-16 23:10] LABS: AMPHETAMINES/METAMPHETAMINES NEGATIVE ng/mL (<1000)
--- NOTE | 2017-07-17 18:14 | RADIOLOGY REPORT PS360 ---
CT ABD PELVIS W/ CONTRAST HISTORY: ABDOMINAL PAIN Patient Age: 32 years: Female Ordering Physician: Gary Starkey MD TECHNIQUE: Helical CT scanning through abdomen and pelvis 5 35-cc [id number] as well as oral contrast. COMPARISON :No previous CT abdomen. A previous ultrasound right upper quadrant 2017 July 06 reviewed FINDINGS LUNG BASES. Linear atelectasis scarring with possibly acute inflammatory changes are seen at the anterior RML.. Minimal linear scarring is also seen anteriorly at the lingula. Suggestion Minor bronchiectatic to changes towards these region may reflect old inflammatory changes as well. Would recommend a follow-up 2 view chest to correlate and see if there has been change on plain film since 2012 CXR Abdomen/: Liver spleen pancreas unremarkable on this noncontrast study Gallbladder. No gallstones. No biliary ductal dilatation. Kidneys. No urinary tract calculi nor obstruction. There is prominent stool throughout the right and transverse colon generous stool throughout the left colon suggesting mild constipation. However there is good rapid transit of oral contrast throughout the small bowel into the right colon. Appendix visualized and appears normal. Note generous caliber small bowel with scattered mild/moderate air-fluid levels throughout small bowel. Nonspecific reflect very minor ileus or very early enteritis but basically within spectrum of normal within. . Pelvis uterus normal size. Generous size right ovary measuring 4.1 cm x 2.5 cm likely containing numerous follicular cyst. The left ovary is smaller at 3 cm X 2.5 cm containing small follicles. No significant fluid the cul-de-sac. There may be some scant physiologic fluid question is seen but unimpressive. Osseous structures unremarkable. IMPRESSION 1. No discrete acute findings in the abdomen or pelvis. Appendix normal. 2. Only note scattered air-fluid levels throughout generous caliber small bowel. With minimal Scattered air-fluid levels throughout the right colon. Could possibly reflect early enteritis but unimpressive requires correlation 3. Right ovary measures 4.1 cm & more generous than left. Both ovaries contain follicular cysts. If pelvic symptoms consider pelvic ultrasound
== END 2017-07-16 23:12 | disposition home or self-care (01) ==
LOC: ER 18:58
PROVIDERS: Emergency Medicine
DX: R10.11 Right upper quadrant pain (principal); E87.6 Hypokalemia; N39.0 Urinary tract infection, site not specified; F17.210 Nicotine dependence, cigarettes, uncomplicated
CPT/HCPCS: J2405; Q9967